=== PATIENT | female | born 1950 | race African-American/Black ===

== ENCOUNTER 2017-08-17 08:27 | Outpatient (CLI) | payer MEDICARE, MEDICAID | END 2017-08-17 08:28 | disposition home or self-care (01) | LOC: BICMAMMO 08:27 | PROVIDERS: ATTEND Family Medicine | DX: Z12.31 Encounter for screening mammogram for malignant neoplasm of breast (principal); R92.1 Mammographic calcification found on diagnostic imaging of breast | CPT/HCPCS: 77063; 77067 ==

== ENCOUNTER 2018-05-22 08:34 | Outpatient (CLI) | payer MEDICARE, OTHER ==
--- NOTE | 2018-05-22 11:57 | HP ---
DATE OF SERVICE: 05/22/2018 HISTORY OF PRESENT ILLNESS: Ms. Tracey Ochoa is a very pleasant 67-year-old referred to the [facility] for evaluation of right lower extremity lymphedema. The patient states that she developed swe lling of her right lower extremity after pulling a muscle 1 month ago. The patient was referred to located within [facility] by Dr. Rachelle Cristina. The patient has no other complaints today. She denies any fever o r chills. PAST MEDICAL HISTORY: 1. Hypertension. 2. Rheumatoid arthritis. 3. Chronic kidney disease stage 2. 4. History of mediastinal mass. PAST SURGICAL HISTORY: Resection of thymic gland 06/27/2012. MEDICATIONS: 1. Metoprolol. 2. Lisinopril. 3. Lasix. 4. Crestor. 5. Vitamin C. 6. Vitamin E. ALLERGIES: No known diagnosed allergies. SOCIAL HISTORY: Negative for current tobacco or ETOH use. FAMILY HISTORY: Significant for diabetes mellitus. The patient states that her mother was diagnosed with diabetes mellitus. Family history is also significant for coronary artery disease. The patien t states that her father was diagnosed with coronary artery disease. PHYSICAL EXAMINATION: VITAL SIGNS: Temperature 97.8, pulse 78, respirations 18, blood pressure 200/89. GENERAL: A 67-year-old female sitting on stretcher in examination room in no acute distress. HEENT: Normocephalic, atraumatic. NECK: No nuchal rigidity. CHEST: Clear to auscultation. CARDIAC: Regular rate and rhythm. ABDOMEN: Soft. EXTREMITIES: Lymphedema of both lower extremities is present on exam today. The lymphedema of the r ight lower extremity, however, is greater than that of the left lower extremity. No open wounds are present over the right or left lower extremity. No cellulitis of the right or left lower extremity i s present. No maceration of the skin of the right or left lower extremity is present. Circumference s of the right lower extremity at the ankle, calf, knee and thigh are 34.5 cm, 53.5 cm, 60 cm, and 10 8 cm. Circumferences of the left lower extremity are 37 cm, 54.5 cm, 59 cm, and 105 cm. NEUROLOGIC: Grossly nonfocal. ASSESSMENT AND PLAN: 1. Right and left lower extremity lymphedema as described above. As stated above, the lymphedema of the right lower extremity is greater than that of the left lower extremity. Arrangements will be ma de for the initiation of in-home lymphedema therapy with a pneumatic pump. The patient understands a nd is in agreement with the preceding treatment plan. The patient will return to clinic in 5 weeks a t which time these arrangements will be continued. 2. Hypertension. 3. Rheumatoid arthritis. 4. Chronic kidney disease stage 2. 5. History of mediastinal mass.
== END 2018-05-22 08:35 | disposition home or self-care (01) ==
LOC: WCC 08:34
PROVIDERS: ATTEND Family Medicine
DX: I89.0 Lymphedema, not elsewhere classified (principal); M06.9 Rheumatoid arthritis, unspecified; I12.9 Hypertensive chronic kidney disease with stage 1 through stage 4 chronic kidney disease, or unspecified chronic kidney disease; N18.2 Chronic kidney disease, stage 2 (mild); Z79.899 Other long term (current) drug therapy
CPT/HCPCS: 97139; G0463; 99203

== ENCOUNTER 2018-06-26 09:16 | Outpatient (CLI) | payer MEDICARE, OTHER ==
--- NOTE | 2018-06-26 10:43 | PRG ---
DATE OF SERVICE: 06/26/2018 HISTORY: Ms. Tracey Ochoa is a very pleasant 68-year-old, referred to the [facility]ound Center for evaluation of right lower extremity lymphedema. The patient previously stated that she developed swelling of her right lower extremity after pulling a muscle approximately one month prior to her initial presentation to the [facility]ound Center. The patient was referred to the Wound Center by Dr. Rachelle Cristina. Ms. Ochoa has no complaints today. She denies any fever or chills. PHYSICAL EXAMINATION: VITAL SIGNS: Temperature 97.5, pulse 53, respirations 18, and blood pressure 166/65. EXTREMITIES: Lymphedema of both lower extremities is present on exam today. No open wounds are present over the right or left lower extremity. No cellulitis of the right or left lower extremity is present. No maceration of the skin of the right or left lower extremity is present. Circumferences of the right lower extremity at the ankle, calf, and knee are 35 cm, 54 cm, and 59.5 cm. Circumferences of the left lower extremity at the ankle, calf, and knee are 40 cm, 55 cm, and 60 cm. ASSESSMENT AND PLAN: 1. Right and left lower extremity lymphedema as described above. Arrangements will continue for the initiation of in-home lymphedema therapy with a pneumatic pump. The patient will return to clinic on 07/20/2018, at which time these arrangements will be continued. 2. Hypertension. 3. Rheumatoid arthritis. 4. Chronic kidney disease stage 2. 5. History of mediastinal mass. Job ID: [id number]
== END 2018-06-26 09:17 | disposition home or self-care (01) ==
LOC: WCC 09:16
PROVIDERS: ATTEND Family Medicine
DX: I89.0 Lymphedema, not elsewhere classified (principal); I12.9 Hypertensive chronic kidney disease with stage 1 through stage 4 chronic kidney disease, or unspecified chronic kidney disease; N18.2 Chronic kidney disease, stage 2 (mild); M06.9 Rheumatoid arthritis, unspecified
CPT/HCPCS: 97602

== ENCOUNTER 2018-07-20 08:28 | Outpatient (CLI) | payer MEDICARE, OTHER ==
--- NOTE | 2018-07-20 09:48 | PRG ---
DATE OF SERVICE: 07/20/2018 SUBJECTIVE: Ms. Tracey Ochoa is a very pleasant 68-year-old referred to the [facility] Center for evaluation of right lower extremity lymphedema. Previously, the patient stated that she developed swelling of her right lower extremity after pulling a muscle approximately one month prior to her initial presentation to the [facility] Center. The patient was referred to the Wound Center by Dr. Rachelle Cristina. The patient has no complaints today. She denies any fever or chills. OBJECTIVE: VITAL SIGNS: Temperature 97.6, pulse 55, respirations 18, and blood pressure 168/79. EXTREMITIES: Lymphedema of both lower extremities is present on exam today. No open wounds are present over the right or left lower extremity. No cellulitis of the right or left lower extremity is present. No maceration of the skin of the right or left lower extremity is present. Circumferences of the right lower extremity at the ankle, calf, and knee are 33 cm, 59 cm, and 61 cm. Circumferences of the left lower extremity at the ankle, calf, and knee are 36 cm, 58 cm, and 64 cm. ASSESSMENT AND PLAN: 1. Right and left lower extremity lymphedema as described above. Arrangements will continue for the initiation of in-home lymphedema therapy with a pneumatic pump. 2. Hypertension. 3. Rheumatoid arthritis. 4. Chronic kidney disease stage 2. 5. History of mediastinal mass. Job ID: [id number]
== END 2018-07-20 08:29 | disposition home or self-care (01) ==
LOC: WCC 08:28
PROVIDERS: ATTEND Family Medicine
DX: I89.0 Lymphedema, not elsewhere classified (principal); M06.9 Rheumatoid arthritis, unspecified; I12.9 Hypertensive chronic kidney disease with stage 1 through stage 4 chronic kidney disease, or unspecified chronic kidney disease; N18.2 Chronic kidney disease, stage 2 (mild)
CPT/HCPCS: 97139; G0463; 99212

== ENCOUNTER 2018-11-09 09:08 | Outpatient (CLI) | payer MEDICARE, OTHER ==
--- NOTE | 2018-11-09 14:40 | MMO ---
Bilateral MAMMO Bilat Screen [facility]. CLINICAL HISTORY: Patient is 68 years old and is seen for screening. The patient has no family history of breast cancer. The patient has no personal history of cancer. VIEWS: The views performed were: bilateral craniocaudal with tomosynthesis; bilateral mediolateral oblique with tomosynthesis; and right mediolateral oblique. FILMS COMPARED: The present examination has been compared to prior imaging studies performed at on 12/02/2008, 02/26/2010, 04/06/2011, 04/21/2012, 07/16/2015, 07/20/2016 and 08/17/2017. MAMMOGRAM FINDINGS: There are scattered fibroglandular densities. Benign calcifications are noted bilaterally. There are no suspicious masses, suspicious calcifications, or new areas of architectural distortion. IMPRESSION: THERE IS NO MAMMOGRAPHIC EVIDENCE OF MALIGNANCY. A ROUTINE FOLLOW-UP MAMMOGRAM IN 1 YEAR IS RECOMMENDED. THE RESULTS OF THIS EXAM WERE SENT TO THE PATIENT. ACR BI-RADS Category 2 - Benign finding MAMMOGRAPHY NOTE: 1. A negative mammogram report should not delay a biopsy if a dominant of clinically suspicious mass is present. 2. Approximately 10% to 15% of breast cancers are not detected by mammography. 3. Adenosis and dense breasts may obscure an underlying neoplasm.
== END 2018-11-09 09:09 | disposition home or self-care (01) ==
LOC: BICMAMMO 09:08
PROVIDERS: ATTEND Family Medicine
DX: Z12.31 Encounter for screening mammogram for malignant neoplasm of breast (principal)
CPT/HCPCS: 77063; 77067

== ENCOUNTER 2019-05-24 09:49 | Outpatient (CLI) | payer MEDICARE, OTHER ==
--- NOTE | 2019-05-24 11:29 | PRG ---
DATE OF SERVICE: 05/24/2019 HISTORY: Ms. Tracey Ochoa is a very pleasant 68-year-old referred to the [facility] Center for evaluation of right lower extremity lymphedema. Previously, the patient stated that she developed swelling of her right lower extremity after pulling a muscle approximately 1 month prior to her initial presentation to the Wound Center. The patient was referred to the Wound Center by Dr. Rachelle Cristina. The patient has received a pneumatic pump, which she is using as prescribed. Ms. Ochoa today complains of swelling of her right posterior thigh. She denies any fever or chills. PHYSICAL EXAMINATION: VITAL SIGNS: Temperature 97.6, pulse 64, respirations 19, and blood pressure 170/73. EXTREMITIES: Lymphedema of both lower extremities has significantly decreased since the patient's last visit. Lymphedema of the right posterior thigh is noted. No erythema or tenderness of the right posterior thigh is present on exam today. ASSESSMENT AND PLAN: 1. Right and left lower extremity lymphedema. The patient has been reassured that no inflammatory or infectious process is associated with the lymphedema of her right posterior thigh. The patient has been told that no erythema or tenderness to palpation of the right posterior thigh is noted on exam today. The patient is to continue to utilize her pneumatic pump for in-home lymphedema therapy as previously prescribed. Ms. Ochoa will be discharged from clinic today with followup on a p.r.n. basis. The patient understands and is in agreement with the preceding treatment plan. 2. Hypertension. 3. Rheumatoid arthritis. 4. Chronic kidney disease, stage 2. 5. History of mediastinal mass. Job ID: [id number]
== END 2019-05-24 09:50 | disposition home or self-care (01) ==
LOC: WCC 09:49
PROVIDERS: ATTEND Family Medicine
DX: I89.0 Lymphedema, not elsewhere classified (principal); I12.9 Hypertensive chronic kidney disease with stage 1 through stage 4 chronic kidney disease, or unspecified chronic kidney disease; N18.2 Chronic kidney disease, stage 2 (mild); M06.9 Rheumatoid arthritis, unspecified; Z87.09 Personal history of other diseases of the respiratory system
CPT/HCPCS: 99212; G0463

== ENCOUNTER 2020-04-17 11:58 | Outpatient (CLI) | payer MEDICARE, OTHER ==
--- NOTE | 2020-04-17 13:16 | MMO ---
Bilateral MAMMO Bilat Screen [facility]. CLINICAL HISTORY: Patient is 69 years old and is seen for screening. The patient has no family history of breast cancer. The patient has no personal history of cancer. VIEWS: The views performed were: bilateral mediolateral; bilateral craniocaudal with tomosynthesis; bilateral mediolateral oblique with tomosynthesis; and left craniocaudal. FILMS COMPARED: The present examination has been compared to prior imaging studies performed at [facility] on 07/16/2015, 07/20/2016, 08/17/2017 and 11/09/2018. This study has been interpreted with the assistance of computer-aided detection. MAMMOGRAM FINDINGS: There are scattered fibroglandular densities. There are no suspicious masses, suspicious calcifications, or new areas of architectural distortion. IMPRESSION: THERE IS NO MAMMOGRAPHIC EVIDENCE OF MALIGNANCY. A ROUTINE FOLLOW-UP MAMMOGRAM IN 1 YEAR IS RECOMMENDED. THE RESULTS OF THIS EXAM WERE SENT TO THE PATIENT. ACR BI-RADS Category 1 - Negative MAMMOGRAPHY NOTE: 1. A negative mammogram report should not delay a biopsy if a dominant of clinically suspicious mass is present. 2. Approximately 10% to 15% of breast cancers are not detected by mammography. 3. Adenosis and dense breasts may obscure an underlying neoplasm. Reported by: RIGOBERTO MARSH MD Electonically Signed: [id number]
== END 2020-04-17 11:59 | disposition home or self-care (01) ==
LOC: BICMAMMO 11:58
PROVIDERS: ATTEND Family Medicine
DX: Z12.31 Encounter for screening mammogram for malignant neoplasm of breast (principal)
CPT/HCPCS: 77063; 77067

== ENCOUNTER 2020-07-22 21:59 | Emergency (ER) | payer MEDICARE, OTHER ==
[2020-07-22] MEDS ORDERED: Ondansetron ODT 4 MG TAB ONE (23:01)
[2020-07-22] MEDS ORDERED: Acetaminophen 500 MG TAB ONE (23:01)
[2020-07-22] MEDS ORDERED: Ibuprofen 200 MG TAB ONE (23:01)
[2020-07-22 23:26] LABS: #Lymphocytes 0.6 thou/uL (1.20-3.40); #Monocytes 0.8 thou/uL (0.11-0.59); #Neutrophils 7.5 thou/uL (1.40-6.50); %Basophils 0.2 % (0.0-1.0); %Eosinophils 0.3 % (0.0-10.0); %Lymphocytes 6.2 % (21.0-51.0); %Monocytes 8.9 % (0.0-10.0); %Neutrophils 84.4 % (42.0-75.0); Hemoglobin 11.2 g/dL (12.0-16.0); Mean Corpuscular Hemoglobin 29.8 pg (27.0-31.0); Mean Corpuscular Volume 90.2 fL (78.0-98.0); Mean Platelet Volume 9.8 fL (7.4-10.4); Platelet Count 164 thou/uL (130-400); RBC Distribution Width 12.8 % (11.5-14.5); Red Blood Cell (RBC) Count 3.76 mill/uL (4.20-5.40); White Blood Cell (WBC) Count 8.9 thou/uL (4.8-10.8)
[2020-07-22 23:47] LABS: ALT (SGPT) 9 U/L (8-55); AST (SGOT) 16 U/L (5-34); Albumin 3.5 g/dL (3.4-4.8); Alkaline Phosphatase 87 U/L (40-110); Anion Gap 15 mmol/L (10-20); BUN (Urea Nitrogen) 11 mg/dL (9.8-20.1); Bilirubin, Total 1.6 mg/dL (0.2-1.2); Calc. Creatinine Clearance 0 mL/min (70-130); Calcium 8.6 mg/dL (7.8-10.44); Carbon Dioxide 24 mmol/L (23-31); Chloride 100 mmol/L (98-107); Globulin 3.6 g/dL (2.4-3.5); Glucose 140 mg/dL (83-110); Potassium 3.4 mmol/L (3.5-5.1); Protein, Total 7.1 g/dL (6.0-8.3); Sodium 136 mmol/L (136-145)
[2020-07-23 00:23] LABS: Bacteria/HPF None Seen HPF (None Seen); Bilirubin Negative (Negative); Blood, Urine 1+ (Negative); Clarity Clear (Clear); Glucose, Urine (Dipstick) Normal (Negative); Ketone, Urine Negative (Negative); Leukocyte Negative Leu/uL (Negative); Nitrite Negative (Negative); Protein, Urine (Dipstick) 30 mg/dL (Neg-Trace); RBC/HPF None Seen HPF (0-3); Specific Gravity, Urine 1.008 (1.002-1.036); Squamous Epithelial None Seen HPF (0-3); WBC/HPF 0-3 HPF (0-3); pH, Urine 6.5 (5.0-9.0)
--- NOTE | 2020-07-23 08:33 | RAD ---
PORTABLE CHEST: DATE: 07/22/2020. PROVIDED CLINICAL HISTORY: Cough and fever. FINDINGS: Comparison 06/22/2014. Evaluation is limited by patient body habitus. The cardiac silhouette appears enlarged. Median sternotomy changes are seen. There are bilateral parahilar interstitial opacities that appear similar to the prior. There is no focal airspace disease, pleural fluid, or pneumothora x apparent. IMPRESSION: No definite evidence for an acute cardiopulmonary process. POS: KALEE
== END 2020-07-23 00:19 | disposition home or self-care (01) ==
LOC: ERS 21:59
DX: R11.2 Nausea with vomiting, unspecified (principal); Z20.828 Contact with and (suspected) exposure to other viral communicable diseases; I10 Essential (primary) hypertension; E78.5 Hyperlipidemia, unspecified; Z79.899 Other long term (current) drug therapy
CPT/HCPCS: 36415; 71045; 80053; 81003; 81015; 85025; Q0162

== ENCOUNTER 2020-07-26 17:13 | Inpatient (IN) | payer MEDICARE, MEDICAID ==
[~2020-07-26 17:13] MED LIST: Iopamidol-370 76% 500 ML 1 ML ONE
--- NOTE | 2020-07-26 18:07 | RAD ---
EXAM: CHEST ONE VIEW HISTORY: Chest pain for one week. COMPARISON: 07/22/2020 FINDINGS: Median sternotomy wires are again present. Cardiac silhouette is magnified by projection but does peyton ear enlarged. Multifocal parenchymal airspace opacities are seen throughout the lungs bilaterally with coalescence of airspace opacities at each lung base and in the left upper lung zone. Findings ar e worrisome for multifocal pneumonia. Covid pneumonia in the correct clinical scenario is a possibility. No other interval change. IMPRESSION: Multifocal pneumonia. Covid pneumonia in the correct clinical scenario is a possibility.
[2020-07-26] MEDS ORDERED: cefTRIAXone\\ROCEPHIN 2 GM VIAL ONE (18:09)
[2020-07-26] MEDS ORDERED: Azithromycin 500 MG VIAL ONE (18:09)
[2020-07-26] MEDS ORDERED: Albuterol Sulfate 2.5 mg/0.5 ml Neb ONE (18:31)
[2020-07-26] MEDS ORDERED: Albuterol Sulfate 2.5 mg/3 ml Neb ONE (18:31)
[2020-07-26 18:32] LABS: #Eosinphils 0.1 thou/uL (0.0-0.7); #Lymphocytes 0.6 thou/uL (1.20-3.40); #Monocytes 0.8 thou/uL (0.11-0.59); #Neutrophils 10.5 thou/uL (1.40-6.50); %Basophils 0.2 % (0.0-1.0); %Eosinophils 0.6 % (0.0-10.0); %Neutrophils 87.2 % (42.0-75.0); Hemoglobin 12.5 g/dL (12.0-16.0); Mean Corpuscular HGB CONC 32.8 g/dL (32.0-36.0); Mean Corpuscular Hemoglobin 29.7 pg (27.0-31.0); Mean Corpuscular Volume 90.4 fL (78.0-98.0); Mean Platelet Volume 9.9 fL (7.4-10.4); Platelet Count 248 thou/uL (130-400); RBC Distribution Width 12.9 % (11.5-14.5); Red Blood Cell (RBC) Count 4.21 mill/uL (4.20-5.40)
[2020-07-26 18:50] LABS: SARS-CoV-2 NAA Rapid Test DETECTED (NotDetected)
[2020-07-26 18:54] LABS: ALT (SGPT) 25 U/L (8-55); AST (SGOT) 44 U/L (5-34); Albumin 3.5 g/dL (3.4-4.8); Alkaline Phosphatase 131 U/L (40-110); Anion Gap 18 mmol/L (10-20); BUN (Urea Nitrogen) 13 mg/dL (9.8-20.1); Bilirubin, Total 1.5 mg/dL (0.2-1.2); Calc. Creatinine Clearance 0 mL/min (70-130); Calcium 8.5 mg/dL (7.8-10.44); Carbon Dioxide 27 mmol/L (23-31); Chloride 98 mmol/L (98-107); Globulin 3.8 g/dL (2.4-3.5); Glucose 144 mg/dL (83-110); Lipase 14 U/L (8-78); Magnesium 1.9 mg/dL (1.6-2.6); Potassium 3.4 mmol/L (3.5-5.1); Protein, Total 7.3 g/dL (6.0-8.3); Sodium 140 mmol/L (136-145)
[2020-07-26] MEDS ORDERED: Dexamethasone 10 MG/ML VIAL ONE (19:00)
[2020-07-26 19:19] LABS: CKMB 1.5 ng/mL (0-6.6)
--- NOTE | 2020-07-26 19:49 | PDOC.FPRHP ---
- History of Present Illness Chief Complaint: Chest pain History of Present Illness: Patient is a 70 yo female with PMH of DM, HTN, HF, and morbid obesity who presented for chest pain and SOB. Patient describes chest pain in association with cough. Denies any chest pain or chest pressure outside of coughing. She has been experiencing SOB since yesterday, but started feeling symptoms of malaise and fatigue 5 days ago. Denies fever/chills or GI symtoms. COVID + in ED. ED Course: Lovenox 150 mg, transdermal nitro-bid, morphine 4 mg, decadron 10 mg, Rocephin 2 g, Azithromycin 500 mg, normal saline 500 ml, aspirin 324 mg - Allergies/Adverse Reactions Allergies Allergy/AdvReac Type Severity Reaction Status Date / Time No Known Drug Allergies Allergy Verified 07/27/20 05:33 - History PMHx: HTN, HF, DM (diet controlled), morbid obesity PSHx: hysterectomy, lumpectomy FHx: no significant family history Social: no t/a/d - Review of Systems General: reports: fatigue. denies: fever/chills Eyes: denies: vision changes ENT: denies: nasal congestion Respiratory: reports: cough, shortness of breath Cardiovascular: reports: chest pain, edema Gastrointestinal: denies: nausea, vomiting, diarrhea, abdominal pain Genitourinary: denies: dysuria, polyuria Skin: denies: jaundice Musculoskeletal: reports: pain, swelling Neurological: reports: weakness Psychological: denies: anxiety, depression - Vital signs BP: 158/113 HR: 92 RR: 25 Tmax: 98.6 Pox: 100% on 2L Wt: 193 kg - Physical Exam Constitutional: NAD, awake, alert and oriented HEENT: normocephalic and atraumatic, EOMI -HEENT: dry mucous membranes Neck: supple, FROM Heart: RRR, normal S1/S2 -Lungs: diffuse bilateral crackles Abdomen: soft, non-tender, bowel sounds present Musculoskeletal: normal structure, normal tone Neurological: no focal deficit, normal sensation Skin: no rash/lesions, no jaundice Heme/Lymphatic: no unusual bruising or bleeding, no purpura, no petechia Psychiatric: normal mood and affect, good judgment and insight FMR H&P: Results - Labs Result Diagrams: 07/27/20 06:24 07/27/20 06:24 Lab results: WBC 12.0 thou/uL (4.8-10.8) H 07/26/20 18:19 Hgb 12.5 g/dL (12.0-16.0) 07/26/20 18:19 Hct 38.1 % (36.0-47.0) 07/26/20 18:19 MCV 90.4 fL (78.0-98.0) 07/26/20 18:19 Plt Count 248 thou/uL (130-400) 07/26/20 18:19 Neutrophils % 87.2 % (42.0-75.0) H 07/26/20 18:19 Sodium 140 mmol/L (136-145) 07/26/20 18:20 Potassium 3.4 mmol/L (3.5-5.1) L 07/26/20 18:20 Chloride 98 mmol/L (98-107) 07/26/20 18:20 Carbon Dioxide 27 mmol/L (23-31) 07/26/20 18:20 BUN 13 mg/dL (9.8-20.1) 07/26/20 18:20 Creatinine 1.61 mg/dL (0.6-1.1) H 07/26/20 18:20 Glucose 144 mg/dL (83-110) H 07/26/20 18:20 Lactic Acid 1.9 mmol/L (0.5-2.2) 07/26/20 18:19 Calcium 8.5 mg/dL (7.8-10.44) 07/26/20 18:20 Total Bilirubin 1.5 mg/dL (0.2-1.2) H 07/26/20 18:20 AST 44 U/L (5-34) H 07/26/20 18:20 ALT 25 U/L (8-55) 07/26/20 18:20 Alkaline Phosphatase 131 U/L (40-110) H 07/26/20 18:20 CK-MB (CK-2) 1.5 ng/mL (0-6.6) 07/26/20 18:20 B-Natriuretic Peptide 144.2 pg/mL (0-100) H 07/26/20 18:19 Serum Total Protein 7.3 g/dL (6.0-8.3) 01/02/21 18:20 Albumin 3.5 g/dL (3.4-4.8) 07/26/20 18:20 Lipase 14 U/L (8-78) 07/26/20 18:20 - EKG Interpretation EKG: T wave inversions in AVL - Radiology Interpretation Chest x-ray Status: image reviewed by me, report reviewed by me Additional comment: multifocal PNA, consider COVID PNA Other Status: report reviewed by me Additional comment: CTA: covid PNA, small bilateral pleural effusions, suboptimal evaluation of segmental and subsegmental pulmonary arteries but no filling defects noted within central pulmonary arteries, probably reactive LAD, peripherally calcified splenic artery aneurysm that is stable in size and appearance compared to 2014 study FMR H&P: A/P - Problem List (1) Pneumonia due to COVID-19 virus Current Visit: Yes Status: Acute Code(s): U07.1 - COVID-19; J12.82 - (2) Atypical chest pain Current Visit: Yes Status: Acute Code(s): R07.89 - OTHER CHEST PAIN (3) HTN (hypertension) Current Visit: No Status: Chronic Code(s): I10 - ESSENTIAL (PRIMARY) HYPERTENSION (4) CHF (congestive heart failure) Current Visit: No Status: Chronic Code(s): I50.9 - HEART FAILURE, UNSPECIFIED (5) Diabetes mellitus Current Visit: No Status: Chronic Code(s): E11.9 - TYPE 2 DIABETES MELLITUS WITHOUT COMPLICATIONS (6) DEANDRE (acute kidney injury) Current Visit: Yes Status: Acute Code(s): N17.9 - ACUTE KIDNEY FAILURE, UNSPECIFIED - Plan Acute hypoxic respiratory failure 2/2 to COVID PNA - s/p decadron, albuterol, rocephin and azythro in ED - currently on 2L NC, does not typically require oxygen; will continue to monitor O2 status and wean as tolerated - Chest Xray: multifocal PNA - CTA: covid PNA, small bilateral pleural effusions, suboptimal evaluation of segmental and subsegmental pulmonary arteries but no filling defects noted within central pulmonary arteries - D-dimer: 1.20 - Trop: 0.066, will continue to trend and monitor on tele - WBC: 12.0 - will obtain ferritin, CRP, LDH - Lovenox for DVT ppx (40 mg daily), s/p 150 mg in ED - will continue Decadron (6 mg PO daily) - remdesevir and convalescent plasma ordered - will obtain procal to assess need for antibiotics Atypical chest pain with indeterminate troponins - pain only with coughing - s/p lovenox, aspirin, and nitro - EKG: T wave inversions in aVL, no ST changes - Trop: 0.066, will trend and monitor on tele - will obtain repeat EKG with 2nd trop - indeterminate trop likely 2/2 to COVID PNA CHF - on lasix at home, will hold pending improvement in Cr. - BNP: 144 but appears dry on exam with Cr: 1.61 (baseline around 1.15) - s/p 500 ml of NS in ED, will gently resuscitate with LR at 200 mls/hr for 1 bag DEANDRE - Cr: 1.61 (baseline ~ 1.15) - see above regarding gentle fluid resuscitation HTN - continue home medication DM - diet controlled - mild SSI and hypoglycemia protocol ordered PCP: Jonnie Code: FULL IVF: LR @ 200 mls/hr for 1 bag Diet: HH and CC DVT ppx: 40 mg Lovenox daily Dispo: will admit to tele for further monitoring and medical management; likely LOS > 48 hrs. FMR H&P: Upper Level - Plan Date/Time: 07/26/201944 IPasquale DO, have evaluated this patient and agree with findings/plan as outlined by physician/internist resident. Pertinent changes/additions are listed here. 70 yo F w pmhx sig for morbid obesity, htn, and chf She reports malaise beginning 4 days ago, SOB and non productive cough began yesterday. she reports chest pain with cough. She denies any fever, n/v/d, decrease PO, exertional chest pain, chest pressure/radiation. no known sick contacts. labs sig for mild wbc elevation, cr elevation, bnp/ddimer elevation, and mild elevation of ast/Tbili. cxr sig for b/l infiltrates. ekg for t wave inversion in AVL, no ST elevation. CTA obtained sig for covid pna and poor eval of subsegmental vasculature, no embolus noted. In the ED she was given abx, th lovenox, nitro/morphine, asa, decadron. on my exam she is comfortably on 2Lnc, no jvd noted, b/l crackles, no ronchi/wheeze, abd nttp, LE with mild edema, pulses present throughout. Acute hypoxic respiratory failure 2/2 covid pna, will treat with decadron, conv. plasma, remdesivir, obtain procal, plan to dc abx. ddimer elevation likely 2/2 to covid. indeterminate trop in setting of atypical chest pain and ekg changes in single lead- will trend trop, dc th lovenox, monitor on tele. hx of chf w/ deandre- dry appearing on exam, gentle ivf resusc. lft/hyperbili, possibly 2/2 covid pna, consider vascular congestion, will monitor. please see physician/internist note above for mgmt of chronic conditions. Addendum - Attending - Attending Attestation Date/Time: 07/27/20 0730 I personally evaluated the patient and discussed the management with Dr. Huerta/Dominic. I agree with the History, Examination, Assessment and Plan documented above with any addition or exceptions noted below. Patient here for acute hypoxic resp failure 2/2 COVID19. She has multiple colten rbid conditions, including morbid obesity, that place her at risk for poor outcomes from this illness. Plasma, Remdesevir, Steroids, O2 support as needed.
[2020-07-26] MEDS ORDERED: Dextrose 5% in Water 1,000 ML IV PRN (20:15)
[2020-07-26] MEDS ORDERED: Dextrose 50% Abboject 50 ML SYRINGE SLOW IVP PRN (20:15)
[2020-07-26] MEDS ORDERED: Insulin Regular 300 UNITS/3 ML VIAL SC PRN ×2 (20:17)
[2020-07-26] MEDS ORDERED: Pharmacy to Dose REMDESIVIR IVPB PRN (20:24)
--- NOTE | 2020-07-26 20:30 | CT ---
CT ANGIOGRAM THORAX WITH IV CONTRAST AND 3-D RECONSTRUCTIONS CLINICAL INDICATION: Chest pain and nausea. COMPARISON: 06/22/2014 FINDINGS: Pulmonary arteries: No obvious filling defect is seen within the central pulmonary arteries to sugges t a pulmonary embolus, but there is suboptimal opacification of the segmental and subsegmental pulmonary arteries limiting evaluation for pulmonary embolus at these levels. Aorta: Minimal vascular calcifications are seen in thoracic aorta. The thoracic aorta is normal in ca liber. Lungs: There are multifocal and confluent areas of groundglass opacities seen diffusely throughout th e lungs bilaterally in a pattern most suggestive of viral pneumonitis such as Covid 19. There are small bilateral pleural effusions are present. Mediastinum: Mildly prominent pretracheal lymph node is seen measuring 1.2 cm in short axis dimension with a few additional mildly increased number of lymph nodes seen in the mediastinum likely reactive in origin. Postoperative changes related to median sternotomy are seen. Thyroid gland: Not imaged on this exam. Osseous structures: Degenerative changes are seen throughout the thoracic spine. Calcification of the anterior longitudinal ligament is seen involving the mid and lower thoracic spine. Chest wall: No abnormality visualized. Upper abdomen: An approximately 2 cm peripherally calcified splenic artery aneurysm is seen at the sp lenic hilum. This is overall stable in size and appearance compared to study in 2014. Very small hiatal hernia is present. IMPRESSION: 1. Covid pneumonia. 2. Small bilateral pleural effusions. 3. Suboptimal evaluation of the segmental and subsegmental pulmonary arteries for pulmonary emboli du e to suboptimal timing of the contrast bolus. No filling defect is seen within the central pulmonary arteries. 4. Probable mild reactive lymphadenopathy in the mediastinum. 5. Peripherally calcified splenic artery aneurysm measuring 2 cm which is stable in size and appearan ce compared to study in 2013.
[2020-07-26] MEDS ORDERED: Lactated Ringer's 1,000 ML IV SCH (21:00)
[2020-07-26] MEDS ORDERED: Enoxaparin Sodium 40 MG/0.4 ML SYRINGE SC SCH (21:00)
[2020-07-26 21:05] LABS: Bilirubin Negative (Negative); Blood, Urine 2+ (Negative); Clarity Turbid (Clear); Glucose, Urine (Dipstick) Normal (Negative); Ketone, Urine Negative (Negative); Leukocyte Negative Leu/uL (Negative); Nitrite Negative (Negative); Protein, Urine (Dipstick) 200 mg/dL (Neg-Trace); Specific Gravity, Urine 1.013 (1.002-1.036); Urobilinogen 6 mg/dL (Less than 2); pH, Urine 6.5 (5.0-9.0)
[2020-07-26 21:06] LABS: Bacteria/HPF 2+ HPF (None Seen)
[2020-07-26] MEDS ORDERED: Nitroglycerin 2% Ointment 1 INCH/1 GM Packet ONE (21:09)
[2020-07-26 21:24] LABS: Troponin I 0.061 ng/mL (< 0.028)
[2020-07-26] MEDS ORDERED: Enoxaparin Sodium 40 MG/0.4 ML SYRINGE ONE (21:31)
[2020-07-26 23:53] LABS: Troponin I 0.063 ng/mL (< 0.028)
[2020-07-27] MEDS ORDERED: REMDESIVIR (EUA) 200 MG in Sodium Chloride 0.9% 250 ML 210 ML IV SCH (02:00)
--- NOTE | 2020-07-27 06:26 | PDOC.FM ---
- Subjective Subjective: Patient feeling well this AM, denies chest pain. Endorses improved SOB - Objective MAR Reviewed: Yes Vital Signs & Weight: Vital Signs (12 hours) Temp Pulse Pulse Resp BP BP Pulse Ox 07/27/20 04:04 97.6 F 80 32 H 159/73 H 92 L 07/26/20 23:43 97.6 F 78 26 H 171/76 H 94 L 07/26/20 23:15 98.4 F 81 24 H 157/85 H 94 L 07/26/20 22:58 98.5 F 82 28 H 155/101 H 94 L Weight Weight 193 kg I&O: 07/25/20 07/26/20 07/27/20 06:59 06:59 06:59 Intake Total 0 Balance 0 Result Diagrams: 07/27/20 06:24 07/27/20 06:24 Phys Exam - Physical Examination Constitutional: NAD Morbidly obese Respiratory: no wheezing, no rales, no rhonchi, clear to auscultation bilateral poor air movement Cardiovascular: RRR, no significant murmur, no rub Gastrointestinal: soft, non-tender, no distention Dx/Plan - Plan Plan: Acute hypoxic respiratory failure 2/2 to COVID PNA - s/p decadron, albuterol, rocephin and azythro in ED-Procal 0.88 on admission - Chest Xray and CTA consistent with COVID PNA - D-dimer: 1.20 - Lovenox for DVT ppx (40 mg daily) - will continue Decadron (6 mg PO daily- started 07/26/20) - remdesevir and convalescent plasma - Continue Rocephin and azithromycin with elevated procal - O2 requirement: 7L NC - Try to wean O2 requirement, elevated HOB given body habitus Hypokalemia - Repleted 40 mEq Atypical chest pain with indeterminate troponins - pain is improved this am, received lovenox, aspirin, and nitro in ED - EKG: T wave inversions in aVL, no ST changes - Troponin was trended-stable 0.066 -> 0.061 -> 0.063 - indeterminate trop likely 2/2 to COVID PNA CHF - on lasix at home, will hold pending improvement in Cr. - BNP: 144 but appears dry on exam with Cr: 1.61 (baseline around 1.15) - monitor fluid status DEANDRE - Cr: 1.61 (baseline ~ 1.15) - Consider IVF, restart lasix when appropriate HTN - continue home medication DM - diet controlled - mild SSI and hypoglycemia protocol ordered PCP: Jonnie Code: FULL IVF: SL Diet: HH and CC DVT ppx: 40 mg Lovenox daily Dispo: will admit to tele for further monitoring and medical management; likely LOS > 48 hrs. Addendum - Attending - Attending Attestation Date/Time: 07/27/20 2686 I personally evaluated the patient and discussed the management with Dr. Peñaloza. I agree with the History, Examination, Assessment and Plan documented above with any addition or exceptions noted below. Patient overall stable. Continue usual care for COVID pneumonia with hypoxia. Patient high risk for clinical deterioration given her obesity and comorbid conditions. Continue steroids, Remdesevir, plasma.
[2020-07-27 06:49] LABS: Hemoglobin 11.4 g/dL (12.0-16.0); Mean Corpuscular HGB CONC 30.3 g/dL (32.0-36.0); Mean Corpuscular Hemoglobin 27.4 pg (27.0-31.0); Mean Corpuscular Volume 90.4 fL (78.0-98.0); Mean Platelet Volume 9.7 fL (7.4-10.4); Platelet Count 262 thou/uL (130-400); RBC Distribution Width 12.9 % (11.5-14.5); Red Blood Cell (RBC) Count 4.15 mill/uL (4.20-5.40)
[2020-07-27 07:04] LABS: Anion Gap 16 mmol/L (10-20); BUN (Urea Nitrogen) 13 mg/dL (9.8-20.1); Calc. Creatinine Clearance 100 mL/min (70-130); Calcium 8.9 mg/dL (7.8-10.44); Carbon Dioxide 28 mmol/L (23-31); Chloride 100 mmol/L (98-107); Glucose 148 mg/dL (83-110); Potassium 3.3 mmol/L (3.5-5.1); Sodium 141 mmol/L (136-145)
[2020-07-27] MEDS ORDERED: Potassium Chloride 20 MEQ TAB PO SCH (08:00)
[2020-07-27] MEDS ORDERED: Lactated Ringer's 500 ML IV SCH (08:45)
[2020-07-27 09:30] LABS: Band 5 % (5-11); Eosinophils 1 % (0-10); Lymphocytes 4 % (21-51); MDiff Complete? YES; Monocytes 3 % (0-10); Neutrophil 87 % (42-75); Platelet Morphology Comment Appears Adequate; RBC Morphology Normal
[2020-07-27] MEDS ORDERED: Metoprolol Tartrate 50 MG TAB ONE (09:33)
[2020-07-27] MEDS ORDERED: Enoxaparin Sodium 40 MG/0.4 ML SYRINGE ONE (09:33)
[2020-07-27] MEDS ORDERED: Aspirin Chewable 81 MG TAB ONE (09:33)
[2020-07-27] MEDS ORDERED: Potassium Chloride 20 MEQ TAB ONE (09:33)
[2020-07-27] MEDS ORDERED: Amlodipine 5 MG TAB ONE (09:33)
[2020-07-27] MEDS: Amlodipine 10 MG TAB PO SCH (09:41)
[2020-07-27] MEDS: Metoprolol Tartrate 100 MG TAB PO SCH ×2 (09:42→21:26)
[2020-07-27] MEDS: Enoxaparin Sodium 40 MG/0.4 ML SYRINGE SC SCH (09:42)
[2020-07-27] MEDS: Aspirin 81 mg Enteric Coated Tablet PO SCH (09:42)
[2020-07-27] MEDS: Dexamethasone 4 MG TAB PO SCH (13:06)
[2020-07-27] MEDS: Ascorbic Acid 500 mg Chewable Tablet PO SCH (13:06)
[2020-07-27] MEDS: Lisinopril 20 MG TAB PO SCH (15:07)
[2020-07-27] MEDS ORDERED: cefTRIAXone\\ROCEPHIN 1 GM in Sodium Chloride 0.9% 100 ML IVPB SCH (18:00)
[2020-07-27] MEDS ORDERED: cefTRIAXone\\ROCEPHIN 1 GM VIAL ONE (18:03)
[2020-07-27] MEDS ORDERED: Azithromycin 250 MG TAB PO SCH (20:00)
[2020-07-27] MEDS ORDERED: Azithromycin 250 MG TAB ONE (21:12)
[2020-07-27] MEDS: Rosuvastatin 20 MG TAB PO SCH (21:26)
[2020-07-27] MEDS: Ezetimibe 10 MG TAB PO SCH (21:26)
[2020-07-27 23:07] LABS: Actual Bicarbonate (HCO3a) 26.7 mEq/L (22-28); Analyzer IN Cardio ER; Base Excess (BEa) 2.4 mEq/L (-2.0 to +3.0); CO2 Tension 40.1 mmHg (35.0-45.0); Calcium, Ionized (arterial) 1.18 mmol/L (1.12-1.30); Carboxyhemoglobin (COHb) 0.2 gm% (0.0-3.0); Hemoglobin (Hb) 12.7 g/dL (12.0-16.0); O2 Tension (PaO2), arterial 77.9 mmHg (> 70.0); Potassium - ABG Lab 3.56 mmol/L (3.70-5.30); pH, Arterial 7.44 (7.35-7.45)
[2020-07-27 23:33] LABS: ALV-art Gradient 584.975 mmHg (0-20); Puncture Site RRA
[2020-07-27] MEDS ORDERED: REMDESIVIR (EUA) 100 MG in Sodium Chloride 0.9% 250 ML 230 ML IV SCH (23:59)
[2020-07-28] MEDS: REMDESIVIR (EUA) 100 MG in Sodium Chloride 0.9% 250 ML 230 ML IV SCH ×2 (04:02→05:14)
--- NOTE | 2020-07-28 05:57 | PDOC.BPN ---
- Brief Progress Note Paged by the nurse around 0430 as patient was wanting to leave [place]. Per patient, she has a family emergency that she must take care of. She reports that her children, including a 17 yo and a 9 yo, are missing. She reports that the police were called but said they were unable to do anything. She reports that her ex is going to pick her up. The patient is currently on a nonrebreather and often desaturates with minimal movement. I discussed the risks of leaving the hospital, including possible . Both the nurse, housekeeping manager, and myself tried to reason with the patient and tried to come up with alternative plans including contacting the police ourselves and other family members to handle the situation. The patient expressed understanding of the risks and insisted that she must leave.
--- NOTE | 2020-07-28 06:14 | PDOC.FM ---
- Subjective Subjective: Patient reporting Dyspnea is improving, Denies chest pain, denies abdominal pain. On 15L nonrebreather. Patient still wants to leave hospital due to 17 and 9 year old children missing. Reiterated message of Dr. Huerta, RN, and clerical warehouseman that it is highly dangerous to leave given current O2 status. Patient understood and wanted to leave. Otherwise was A&OX3. Called daughter Shireen [phone]) who said there was not a current situation involving children that she knows of. She said she would call the patient to talk with her and call back with any other information. - Objective MAR Reviewed: Yes Vital Signs & Weight: Weight Weight 193 kg I&O: 07/26/20 07/27/20 07/28/20 06:59 06:59 06:59 Intake Total 0 Balance 0 Result Diagrams: 07/28/20 05:13 07/28/20 05:13 Phys Exam - Physical Examination Constitutional: NAD Respiratory: no rales, no rhonchi Diffuse expiratory wheezes Cardiovascular: RRR, no significant murmur, no rub Gastrointestinal: soft, non-tender, no distention, positive bowel sounds Chronic edema with chronic skin changes BLE Psychiatric: normal affect, A&O x 3 Dx/Plan - Plan Plan: Acute hypoxic respiratory failure 2/2 to COVID PNA - s/p decadron, albuterol, rocephin and azythro in ED-Procal 0.88 on admission - Chest Xray and CTA consistent with COVID PNA - D-dimer: 1.20 - Lovenox for DVT ppx (40 mg daily) - will continue Decadron (6 mg PO daily- started 07/26/20) - remdesevir and convalescent plasma - Continue Rocephin and azithromycin with elevated procal - O2 requirement: 7L NC - Try to wean O2 requirement, elevated HOB given body habitus Hypokalemia - f/u on morning labs CHF - on lasix at home, will hold pending improvement in Cr. - BNP: 144 but appears dry on exam with Cr: 1.61 (baseline around 1.15) - monitor fluid status DEANDRE - Cr: 1.61 (baseline ~ 1.15) - Consider IVF, restart lasix when appropriate HTN - continue home medication DM - diet controlled - mild SSI and hypoglycemia protocol ordered Atypical chest pain with indeterminate troponins, resolved - pain is improved this am, received lovenox, aspirin, and nitro in ED - EKG: T wave inversions in aVL, no ST changes - Troponin was trended-stable 0.066 -> 0.061 -> 0.063 - indeterminate trop likely 2/2 to COVID PNA PCP: Jonnie Code: FULL IVF: SL Diet: HH and CC DVT ppx: 40 mg Lovenox daily Dispo: will admit to tele for further monitoring and medical management; likely LOS > 48 hrs. Addendum - Attending - Attending Attestation Date/Time: 07/28/20 9700 I personally evaluated the patient and discussed the management with Dr. Peñaloza I agree with the History, Examination, Assessment and Plan documented above with any addition or exceptions noted below. 70 yo female admitted for acute respiratory failure due to COVID PNA. Patient stable but still requiring O2 support. Remains symptomatic. Requesting d/c to check on family. Family called to bedside today to help alleviate patient's stress. Patient now content with staying for treatment. Discussed palliative care if patient interested but would like to continue treatment. Kailyn
[2020-07-28] MEDS: Albuterol 200 PUFF (6.7GM INHALER) INH PRN (06:25)
[2020-07-28 06:37] LABS: Anion Gap 16 mmol/L (10-20); BUN (Urea Nitrogen) 17 mg/dL (9.8-20.1); Calc. Creatinine Clearance 112 mL/min (70-130); Calcium 9.3 mg/dL (7.8-10.44); Carbon Dioxide 27 mmol/L (23-31); Chloride 100 mmol/L (98-107); Glucose 130 mg/dL (83-110); Potassium 3.7 mmol/L (3.5-5.1); Sodium 139 mmol/L (136-145)
[2020-07-28 06:46] LABS: Hemoglobin 11.8 g/dL (12.0-16.0); Mean Corpuscular HGB CONC 31.1 g/dL (32.0-36.0); Mean Corpuscular Hemoglobin 28.1 pg (27.0-31.0); Mean Corpuscular Volume 90.4 fL (78.0-98.0); Mean Platelet Volume 9.6 fL (7.4-10.4); Platelet Count 324 thou/uL (130-400); RBC Distribution Width 13.2 % (11.5-14.5); Red Blood Cell (RBC) Count 4.19 mill/uL (4.20-5.40); White Blood Cell (WBC) Count 14.3 thou/uL (4.8-10.8)
[2020-07-28 07:23] LABS: Band 13 % (5-11); Lymphocytes 6 % (21-51); MDiff Complete? YES; Monocytes 4 % (0-10); Neutrophil 77 % (42-75)
[2020-07-28] MEDS: Dexamethasone 4 MG TAB PO SCH (10:45)
[2020-07-28] MEDS: Metoprolol Tartrate 100 MG TAB PO SCH ×2 (10:46→21:57)
[2020-07-28] MEDS: Lisinopril 20 MG TAB PO SCH (10:46)
[2020-07-28] MEDS: Ascorbic Acid 500 mg Chewable Tablet PO SCH (10:46)
[2020-07-28] MEDS: Aspirin 81 mg Enteric Coated Tablet PO SCH (10:46)
[2020-07-28] MEDS: Amlodipine 10 MG TAB PO SCH (10:46)
[2020-07-28] MEDS: Enoxaparin Sodium 40 MG/0.4 ML SYRINGE SC SCH (10:46)
[2020-07-28] MEDS: Ezetimibe 10 MG TAB PO SCH ×3 (21:56→21:58)
[2020-07-28] MEDS: Rosuvastatin 20 MG TAB PO SCH (21:57)
[2020-07-29] MEDS: REMDESIVIR (EUA) 100 MG in Sodium Chloride 0.9% 250 ML 230 ML IV SCH (04:05)
[2020-07-29 05:43] LABS: ALT (SGPT) 23 U/L (8-55); AST (SGOT) 42 U/L (5-34); Albumin 3.2 g/dL (3.4-4.8); Alkaline Phosphatase 123 U/L (40-110); Anion Gap 17 mmol/L (10-20); BUN (Urea Nitrogen) 24 mg/dL (9.8-20.1); Bilirubin, Total 0.8 mg/dL (0.2-1.2); Calc. Creatinine Clearance 92 mL/min (70-130); Carbon Dioxide 26 mmol/L (23-31); Chloride 100 mmol/L (98-107); Globulin 4.6 g/dL (2.4-3.5); Glucose 132 mg/dL (83-110); Potassium 3.9 mmol/L (3.5-5.1); Protein, Total 7.8 g/dL (6.0-8.3); Sodium 139 mmol/L (136-145)
[2020-07-29 05:57] LABS: Mean Corpuscular Hemoglobin 28.1 pg (27.0-31.0); Mean Corpuscular Volume 90.7 fL (78.0-98.0); Mean Platelet Volume 9.3 fL (7.4-10.4); Platelet Count 307 thou/uL (130-400); RBC Distribution Width 13.4 % (11.5-14.5); Red Blood Cell (RBC) Count 4.27 mill/uL (4.20-5.40); White Blood Cell (WBC) Count 11.3 thou/uL (4.8-10.8)
--- NOTE | 2020-07-29 06:17 | PDOC.FM ---
- Subjective Subjective: Patient overall feeling better this AM. Reports improved SOB, denies CP. Reports R hand pain that is chronic and flares in nature. - Objective MAR Reviewed: Yes Vital Signs & Weight: Vital Signs (12 hours) Temp Pulse Resp BP Pulse Ox 07/29/20 03:03 97.6 F 59 L 20 125/61 97 07/29/20 03:00 97.0 F L 59 L 20 125/61 97 07/28/20 23:00 98.5 F 77 20 133/69 95 07/28/20 19:06 99.6 F 71 18 126/73 98 Weight Weight 187.816 kg I&O: 07/27/20 07/28/20 07/29/20 06:59 06:59 06:59 Intake Total 0 150 750 Output Total 1000 Balance 0 150 -250 Result Diagrams: 07/29/20 04:30 07/29/20 04:30 Phys Exam - Physical Examination Constitutional: NAD Respiratory: no rales, no rhonchi Mild diffuse expiratory wheezing Cardiovascular: RRR, no significant murmur, no rub Gastrointestinal: soft, non-tender, no distention, positive bowel sounds Dx/Plan - Plan Plan: Acute hypoxic respiratory failure 2/2 to COVID PNA - s/p decadron, albuterol, rocephin and azithro in ED-Procal 0.88 on admission - Chest Xray and CTA consistent with COVID PNA - D-dimer: 1.20 - Lovenox for DVT ppx (40 mg daily) - will continue Decadron (6 mg PO daily- started 07/26/20) - remdesevir and convalescent plasma (07/28/20) - O2 requirement: 7L NC - Try to wean O2 requirement, elevated HOB given body habitus - Albuterol PRN, Dulera PRN, Mucinex Hypokalemia - f/u on morning labs CHF - on lasix at home, will hold pending improvement in Cr. - BNP: 144 but appears dry on exam with Cr: 1.61 (baseline around 1.15) - monitor fluid status DEANDRE - Cr: 1.61 (baseline ~ 1.15) - 500 mL fluid today, reassess in AM HTN - continue home medication DM - diet controlled - mild SSI and hypoglycemia protocol ordered Atypical chest pain with indeterminate troponins, resolved - pain is improved this am, received lovenox, aspirin, and nitro in ED - EKG: T wave inversions in aVL, no ST changes - Troponin was trended-stable 0.066 -> 0.061 -> 0.063 - indeterminate trop likely 2/2 to COVID PNA PCP: Jonnie Code: FULL IVF: SL Diet: HH and CC DVT ppx: 40 mg Lovenox daily Dispo: will admit to tele for further monitoring and medical management; likely LOS > 48 hrs. Addendum - Attending - Attending Attestation Date/Time: 07/29/20 3605 I personally evaluated the patient and discussed the management with Dr. Peñaloza I agree with the History, Examination, Assessment and Plan documented above with any addition or exceptions noted below. 70 yo female admitted for acute respiratory failure due to COVID with underlying obesity, DM, HTN, HF Patient showing improvement today. Emotionally much better. Reports some wheezing with breathing today and increased cough. Report fatigue still present. Cr stable. But mild decrease in UOP. AST still elevated. Ddimer has increased. Will continue remdesevir and steroids. Start antitussive. Add inhaler. Repeat labs in 48 hours. Give 500 ml bolus and monitor UOP. Wean O2 when able. Consult PT/OT. Kailyn
[2020-07-29 06:21] LABS: Band 12 % (5-11); Lymphocytes 9 % (21-51); MDiff Complete? YES; Monocytes 8 % (0-10); Myelocyte 1 % (0-0); Neutrophil 69 % (42-75); Reactive Lymphocytes 1 % (0-10)
[2020-07-29] MEDS: Dexamethasone 4 MG TAB PO SCH (08:28)
[2020-07-29] MEDS: Enoxaparin Sodium 40 MG/0.4 ML SYRINGE SC SCH (08:30)
[2020-07-29] MEDS: Aspirin 81 mg Enteric Coated Tablet PO SCH (08:30)
[2020-07-29] MEDS: Amlodipine 10 MG TAB PO SCH (08:30)
[2020-07-29] MEDS: Lisinopril 20 MG TAB PO SCH (08:31)
[2020-07-29] MEDS: Metoprolol Tartrate 100 MG TAB PO SCH ×2 (08:31→21:46)
[2020-07-29] MEDS: Ascorbic Acid 500 mg Chewable Tablet PO SCH (08:34)
[2020-07-29] MEDS ORDERED: Lactated Ringer's 500 ML IV SCH (10:15)
[2020-07-29] MEDS: Albuterol 200 PUFF (6.7GM INHALER) INH PRN ×2 (12:29→21:48)
[2020-07-29] MEDS: Mometasone 100 MCG/Formoterol 5 MCG 120 PUFF INHALER INH SCH (18:16)
[2020-07-29] MEDS: guaiFENesin ER 600 MG TAB PO SCH (21:46)
[2020-07-29] MEDS: Rosuvastatin 20 MG TAB PO SCH (21:47)
[2020-07-29] MEDS: Ezetimibe 10 MG TAB PO SCH (21:47)
[2020-07-30] MEDS: REMDESIVIR (EUA) 100 MG in Sodium Chloride 0.9% 250 ML 230 ML IV SCH (03:49)
--- NOTE | 2020-07-30 06:05 | PDOC.FM ---
- Subjective Subjective: Patient overall doing better. Reports better breathing but increased cough with clear sputum production. Denies CP and abdominal pain/N/V. - Objective Vital Signs & Weight: Vital Signs (12 hours) Temp Pulse Resp BP Pulse Ox 07/30/20 01:00 96.0 F L 72 20 142/73 H 99 07/30/20 00:51 97 07/29/20 21:00 98.6 F 68 17 154/90 H 95 Weight Weight 187.816 kg I&O: 07/28/20 07/29/20 07/30/20 06:59 06:59 06:59 Intake Total 191 143 4743 Output Total 1000 700 Balance 150 -250 300 Result Diagrams: 07/29/20 04:30 07/30/20 09:17 Phys Exam - Physical Examination Constitutional: NAD Respiratory: no rales, no rhonchi Diffuse expiratory wheezes Cardiovascular: RRR, no significant murmur, no rub Gastrointestinal: soft, non-tender, no distention, positive bowel sounds Dx/Plan - Plan Plan: Acute hypoxic respiratory failure 2/2 to COVID PNA - s/p decadron, albuterol, rocephin and azithro in ED-Procal 0.88 on admission - Chest Xray and CTA consistent with COVID PNA - D-dimer: 1.20 - Lovenox for DVT ppx (40 mg daily) - will continue Decadron (6 mg PO daily- started 07/26/20) - remdesevir and convalescent plasma (07/28/20) - O2 requirement: 4L NC - Try to wean O2 requirement, elevated HOB given body habitus - Albuterol PRN, Dulera NYDIA, Mucinex, Tessalon Hypokalemia - f/u on morning labs CHF - on lasix at home, will hold pending improvement in Cr. - BNP: 144 but appears dry on exam with Cr: 1.61 (baseline around 1.15) - monitor fluid status DEANDRE - Cr: 1.61 (baseline ~ 1.15) - Continue to monitor HTN - continue home medication DM - diet controlled - mild SSI and hypoglycemia protocol ordered Atypical chest pain with indeterminate troponins, resolved - pain is improved this am, received lovenox, aspirin, and nitro in ED - EKG: T wave inversions in aVL, no ST changes - Troponin was trended-stable 0.066 -> 0.061 -> 0.063 - indeterminate trop likely 2/2 to COVID PNA PCP: Jonnie Code: FULL IVF: SL Diet: HH and CC DVT ppx: 40 mg Lovenox daily Dispo: will admit to tele for further monitoring and medical management; likely LOS > 48 hrs. Addendum - Attending - Attending Attestation Date/Time: 07/30/20 1113 I personally evaluated the patient and discussed the management with Dr. Peñaloza I agree with the History, Examination, Assessment and Plan documented above with any addition or exceptions noted below. 70 yo female admitted for acute respiratory failure due to COVID with underlying obesity, DM, HTN, HF, HLD Patient continues to slowly improved. Reports fatigue declining. Still with severe dyspnea with activity. Requiring 5L NC of supp O2. Repeat labs in AM. Gl ucose remains at goal. If dose not have family support 24/7 at home will need rehab. Will need to consult CM tomorrow to assist with Dispo plan since patient now stable on NC. Kailyn
[2020-07-30] MEDS: Mometasone 100 MCG/Formoterol 5 MCG 120 PUFF INHALER INH SCH ×2 (06:09→17:03)
[2020-07-30] MEDS: Benzonatate 100 MG CAP PO PRN ×2 (06:11→17:02)
[2020-07-30] MEDS: Dexamethasone 4 MG TAB PO SCH (08:54)
[2020-07-30] MEDS: Amlodipine 10 MG TAB PO SCH (08:56)
[2020-07-30] MEDS: Ascorbic Acid 500 mg Chewable Tablet PO SCH (08:56)
[2020-07-30] MEDS: guaiFENesin ER 600 MG TAB PO SCH ×2 (08:56→21:26)
[2020-07-30] MEDS: Aspirin 81 mg Enteric Coated Tablet PO SCH (08:56)
[2020-07-30] MEDS: Enoxaparin Sodium 40 MG/0.4 ML SYRINGE SC SCH (08:56)
[2020-07-30] MEDS: Lisinopril 20 MG TAB PO SCH (08:56)
[2020-07-30] MEDS: Metoprolol Tartrate 100 MG TAB PO SCH ×2 (08:57→21:26)
[2020-07-30 09:46] LABS: Anion Gap 16 mmol/L (10-20); BUN (Urea Nitrogen) 30 mg/dL (9.8-20.1); Calc. Creatinine Clearance 92 mL/min (70-130); Calcium 8.9 mg/dL (7.8-10.44); Carbon Dioxide 27 mmol/L (23-31); Chloride 100 mmol/L (98-107); Glucose 100 mg/dL (83-110); Potassium 3.8 mmol/L (3.5-5.1); Sodium 139 mmol/L (136-145)
--- NOTE | 2020-07-30 16:12 | PDOC.FMACP ---
Advance Care Planning - Problem (1) Palliative care encounter Status: Acute Code(s): Z51.5 - ENCOUNTER FOR PALLIATIVE CARE (2) Pneumonia due to COVID-19 virus Status: Acute Code(s): U07.1 - COVID-19; J12.82 - PNEUMONIA DUE TO CORONAVIRUS DISEASE 2019 (3) CHF (congestive heart failure) Status: Chronic Code(s): I50.9 - HEART FAILURE, UNSPECIFIED (4) Diabetes mellitus Status: Chronic Code(s): E11.9 - TYPE 2 DIABETES MELLITUS WITHOUT COMPLICATIONS - Note Participants: patient, palliative care Summary: Palliative care has addressed Advanced Care Planning. The diagnosis, prognosis and goals of care were discussed. Appropriate forms and documentation to accomplish the goals of care were discussed. All questions were answered. Teaching in relation to disease processes and current health status. Elected to complete MPOA and Directive to Physician. Both notarized, original given to patient and copy placed on chart for medical records. Please refer to Palliative Care notes in note section. Palliative care will sign off as Goals addressed and Directives complete. Thank you for this very appropriate consult and allowing our team to participate in the care of Ms Ochoa. Time Spent (mins): 20
[2020-07-30] MEDS: Rosuvastatin 20 MG TAB PO SCH (21:17)
[2020-07-30] MEDS: Ezetimibe 10 MG TAB PO SCH (21:26)
[2020-07-30] MEDS: Albuterol 200 PUFF (6.7GM INHALER) INH PRN (23:33)
[2020-07-31] MEDS: REMDESIVIR (EUA) 100 MG in Sodium Chloride 0.9% 250 ML 230 ML IV SCH (03:36)
[2020-07-31 05:35] LABS: ALT (SGPT) 20 U/L (8-55); AST (SGOT) 33 U/L (5-34); Alkaline Phosphatase 121 U/L (40-110); Anion Gap 17 mmol/L (10-20); BUN (Urea Nitrogen) 35 mg/dL (9.8-20.1); Calc. Creatinine Clearance 85 mL/min (70-130); Calcium 8.6 mg/dL (7.8-10.44); Carbon Dioxide 23 mmol/L (23-31); Chloride 101 mmol/L (98-107); Globulin 4.8 g/dL (2.4-3.5); Glucose 135 mg/dL (83-110); Potassium 3.8 mmol/L (3.5-5.1); Protein, Total 7.8 g/dL (6.0-8.3); Sodium 137 mmol/L (136-145)
--- NOTE | 2020-07-31 05:55 | PDOC.FM ---
- Subjective Subjective: Overall patient reports that she is feeling well. Her L hand is sore from an IV but improving since the IV was removed. Otherwise she reports better breathing and denies CP, N/V. - Objective MAR Reviewed: Yes Vital Signs & Weight: Vital Signs (12 hours) Temp Pulse Resp BP Pulse Ox 07/31/20 03:36 97.8 F 57 L 24 H 133/76 97 07/30/20 23:33 55 L 22 H 98 07/30/20 21:20 97.8 F 70 18 139/67 94 L Weight Weight 187.816 kg I&O: 07/29/20 07/30/20 07/31/20 06:59 06:59 06:59 Intake Total 750 1000 720 Output Total 1000 700 400 Balance -250 300 320 Result Diagrams: 07/31/20 04:22 07/31/20 04:22 Phys Exam - Physical Examination Constitutional: NAD Respiratory: no wheezing, no rales, no rhonchi Cardiovascular: RRR, no significant murmur, no rub Gastrointestinal: soft, non-tender, no distention, positive bowel sounds Dx/Plan - Plan Plan: Acute hypoxic respiratory failure 2/2 to COVID PNA - s/p decadron, albuterol, rocephin and azithro in ED-Procal 0.88 on admission - Chest Xray and CTA consistent with COVID PNA - D-dimer: 1.20 - Lovenox for DVT ppx (40 mg daily) - will continue Decadron (6 mg PO daily- started 07/26/20) - remdesevir and convalescent plasma (07/28/20) - O2 requirement: 6L NC - Try to wean O2 requirement, elevated HOB given body habitus - Albuterol PRN, Dulera NYDIA, Mucinex, Tessalon Hypokalemia - f/u on morning labs CHF - on lasix at home, will hold pending improvement in Cr. - BNP: 144 but appears dry on exam with Cr: 1.61 (baseline around 1.15) - monitor fluid status DEANDRE - Cr: 1.61 (baseline ~ 1.15) - Continue to monitor HTN - continue home medication DM - diet controlled - mild SSI and hypoglycemia protocol ordered Atypical chest pain with indeterminate troponins, resolved - pain is improved this am, received lovenox, aspirin, and nitro in ED - EKG: T wave inversions in aVL, no ST changes - Troponin was trended-stable 0.066 -> 0.061 -> 0.063 - indeterminate trop likely 2/2 to COVID PNA PCP: Jonnie Code: FULL IVF: SL Diet: HH and CC DVT ppx: 40 mg Lovenox daily Dispo: will admit to tele for further monitoring and medical management; likely LOS > 48 hrs. Addendum - Attending - Attending Attestation Date/Time: 07/31/20 9971 I personally evaluated the patient and discussed the management with Dr. Peñaloza I agree with the History, Examination, Assessment and Plan documented above with any addition or exceptions noted below. 70 yo female admitted for acute respiratory failure due to COVID with underlying obesity, DM, HTN, HF, HLD Significant decline this morning. Placed on HFNC with improvement. Continue dexa. s/p plasma. Does not meet criteria for remedesivir due to renal function. Ddimer increased. Trend in AM. Follow closely. Prognosis guarded. Kailyn
[2020-07-31 06:10] LABS: Hemoglobin 12.5 g/dL (12.0-16.0); MDiff Complete? YES; Mean Corpuscular HGB CONC 32.4 g/dL (32.0-36.0); Mean Corpuscular Hemoglobin 29.1 pg (27.0-31.0); Mean Corpuscular Volume 89.9 fL (78.0-98.0); Mean Platelet Volume 9.6 fL (7.4-10.4); Platelet Count 329 thou/uL (130-400); RBC Distribution Width 13.4 % (11.5-14.5)
[2020-07-31 06:11] LABS: Band 7 % (5-11); Eosinophils 1 % (0-10); Lymphocytes 8 % (21-51); Monocytes 6 % (0-10); Neutrophil 78 % (42-75)
[2020-07-31] MEDS: Mometasone 100 MCG/Formoterol 5 MCG 120 PUFF INHALER INH SCH ×2 (06:29→17:29)
[2020-07-31] MEDS: Enoxaparin Sodium 40 MG/0.4 ML SYRINGE SC SCH (07:32)
[2020-07-31] MEDS: Ascorbic Acid 500 mg Chewable Tablet PO SCH (07:33)
[2020-07-31] MEDS: Lisinopril 20 MG TAB PO SCH (07:33)
[2020-07-31] MEDS: Amlodipine 10 MG TAB PO SCH (07:33)
[2020-07-31] MEDS: Dexamethasone 4 MG TAB PO SCH (07:33)
[2020-07-31] MEDS: Metoprolol Tartrate 100 MG TAB PO SCH ×2 (07:33→21:30)
[2020-07-31] MEDS: Aspirin 81 mg Enteric Coated Tablet PO SCH (07:33)
[2020-07-31] MEDS: guaiFENesin ER 600 MG TAB PO SCH ×2 (07:34→21:30)
[2020-07-31] MEDS ORDERED: ALPRAZolam 0.5 MG TAB PO SCH (10:15)
[2020-07-31] MEDS ORDERED: Albuterol 200 PUFF (6.7GM INHALER) INH SCH (10:30)
[2020-07-31] MEDS ORDERED: Docusate 100 MG CAP PO PRN (11:06)
[2020-07-31] MEDS: Albuterol 200 PUFF (6.7GM INHALER) INH SCH ×3 (15:07→21:30)
[2020-07-31] MEDS: Ezetimibe 10 MG TAB PO SCH (21:29)
[2020-07-31] MEDS: Rosuvastatin 20 MG TAB PO SCH (21:29)
[2020-08-01] MEDS: Albuterol 200 PUFF (6.7GM INHALER) INH SCH ×6 (03:56→22:00)
--- NOTE | 2020-08-01 05:39 | PDOC.FM ---
- Subjective Subjective: Patient is reporting that she is breathing well on HFNC. She denies CP, N/V. She is still wishing to go home. Had discussion today that she likely will not be going home today or even tomorrow. - Objective MAR Reviewed: No Vital Signs & Weight: Vital Signs (12 hours) Temp Pulse Resp BP Pulse Ox 08/01/20 03:47 98.4 F 61 28 H 157/72 H 98 07/31/20 23:00 98.3 F 48 L 22 H 129/67 99 07/31/20 19:00 98.1 F 61 20 138/74 99 Weight Weight 183.506 kg I&O: 07/30/20 07/31/20 08/01/20 06:59 06:59 06:59 Intake Total 0288 028 7444 Output Total 085 688 4389 Balance 300 320 -50 Result Diagrams: 07/31/20 04:22 07/31/20 04:22 Phys Exam - Physical Examination Constitutional: NAD Respiratory: no rales, no rhonchi Mild diffuse end expiratory wheezes Cardiovascular: RRR, no significant murmur, no rub Gastrointestinal: soft, non-tender, no distention, positive bowel sounds Musculoskeletal: no edema, pulses present Dx/Plan - Plan Plan: Acute hypoxic respiratory failure 2/2 to COVID PNA - s/p decadron, albuterol, rocephin and azithro in ED-Procal 0.88 on admission - Chest Xray and CTA consistent with COVID PNA - D-dimer: 1.20 - Lovenox for DVT ppx (40 mg daily) - will continue Decadron (6 mg PO daily- started 07/26/20) - remdesevir and convalescent plasma (07/28/20) - O2 requirement: HFNC 55L/60% - Try to wean O2 requirement, elevated HOB given body habitus - Albuterol PRN, Dulera NYDIA, Mucinex, Tessalon Hypokalemia - f/u on morning labs CHF - on lasix at home - BNP: 144 on admission - monitor fluid status DEANDRE - Cr: 1.79 (baseline ~ 1.15) - Continue to monitor - consider Lasix with no improvement in SCr with IVF HTN - continue home medication DM - diet controlled - mild SSI and hypoglycemia protocol ordered Atypical chest pain with indeterminate troponins, resolved - pain is improved this am, received lovenox, aspirin, and nitro in ED - EKG: T wave inversions in aVL, no ST changes - Troponin was trended-stable 0.066 -> 0.061 -> 0.063 - indeterminate trop likely 2/2 to COVID PNA PCP: Jonnie Code: FULL IVF: SL Diet: HH and CC DVT ppx: 40 mg Lovenox daily Dispo: will admit to tele for further monitoring and medical management; likely LOS > 48 hrs. Addendum - Attending - Attending Attestation Date/Time: 08/01/20 1410 I personally evaluated the patient and discussed the management with Dr. Peñaloza I agree with the History, Examination, Assessment and Plan documented above with any addition or exceptions noted below. 70 yo female admitted for acute respiratory failure due to COVID with underlying obesity, DM, HTN, HF, HLD Slow improvement but better oxygenation than yesterday. Remains stable on HFNC at 47%. Repeat labs in AM. Continue IVFs due to poor PO intake. Continue BM reg. Continue H2 sonia. Follow closely. Poor prognosis. Kailyn
[2020-08-01] MEDS: Mometasone 100 MCG/Formoterol 5 MCG 120 PUFF INHALER INH SCH ×2 (06:02→18:59)
[2020-08-01] MEDS: Amlodipine 10 MG TAB PO SCH (08:12)
[2020-08-01] MEDS: Enoxaparin Sodium 40 MG/0.4 ML SYRINGE SC SCH (08:12)
[2020-08-01] MEDS: Polyethylene Glycol 3350 17 GM Packet PO SCH (08:12)
[2020-08-01] MEDS: Ascorbic Acid 500 mg Chewable Tablet PO SCH (08:12)
[2020-08-01] MEDS: Dexamethasone 4 MG TAB PO SCH (08:13)
[2020-08-01] MEDS: Aspirin 81 mg Enteric Coated Tablet PO SCH (08:13)
[2020-08-01] MEDS: guaiFENesin ER 600 MG TAB PO SCH ×2 (08:13→19:57)
[2020-08-01] MEDS: Metoprolol Tartrate 100 MG TAB PO SCH ×2 (08:13→19:57)
[2020-08-01] MEDS: Lisinopril 20 MG TAB PO SCH (08:13)
[2020-08-01] MEDS ORDERED: Milk Of Magnesia 30 ML UDCUP PO PRN (08:41)
[2020-08-01] MEDS ORDERED: Docusate 100 MG CAP PO PRN (08:41)
[2020-08-01] MEDS ORDERED: Famotidine 20 MG TAB PO PRN (08:42)
[2020-08-01] MEDS ORDERED: Polyethylene Glycol 3350 17 GM Packet PO SCH (09:00)
[2020-08-01] MEDS: Lactated Ringer's 1,000 ML IV SCH ×2 (11:03→21:59)
[2020-08-01] MEDS: Benzonatate 100 MG CAP PO PRN (19:57)
[2020-08-01] MEDS: Ezetimibe 10 MG TAB PO SCH (19:57)
[2020-08-01] MEDS: Rosuvastatin 20 MG TAB PO SCH (19:57)
[2020-08-02] MEDS: Albuterol 200 PUFF (6.7GM INHALER) INH SCH ×6 (02:43→21:03)
--- NOTE | 2020-08-02 05:37 | PDOC.FM ---
- Subjective Subjective: Patient is reporting that she is breathing well on HFNC. She denies CP, N/V. HFNC 54L/68%, satting 97. - Objective MAR Reviewed: Yes Vital Signs & Weight: Vital Signs (12 hours) Temp Pulse Resp BP Pulse Ox 08/02/20 03:00 98.2 F 58 L 16 138/67 97 08/02/20 00:36 94 L 08/01/20 23:04 98 F 52 L 18 133/63 94 L 08/01/20 19:25 98.4 F 67 21 H 129/69 98 Weight Weight 183.506 kg I&O: 07/31/20 08/01/20 08/02/20 06:59 06:59 06:59 Intake Total 720 2132 3236 Output Total 400 2350 1950 Balance 320 -218 1286 Result Diagrams: 08/02/20 05:03 08/02/20 05:03 Phys Exam - Physical Examination Constitutional: NAD HEENT: PERRLA, moist MMs mild diffuse expiratory wheeze Cardiovascular: RRR, no significant murmur Gastrointestinal: soft, non-tender, positive bowel sounds Musculoskeletal: no edema, pulses present Neurological: non-focal, normal sensation Dx/Plan - Plan Plan: Acute hypoxic respiratory failure 2/2 to COVID PNA - s/p decadron, albuterol, rocephin and azithro in ED-Procal 0.88 on admission - Chest Xray and CTA consistent with COVID PNA - D-dimer: 1.20 - Lovenox for DVT ppx (40 mg daily) - will continue Decadron (6 mg PO daily- started 07/26/20) - remdesevir and convalescent plasma (07/28/20) - O2 requirement: HFNC 54L/68% - Try to wean O2 requirement, elevated HOB given body habitus - Albuterol PRN, Dulera NYDIA, Mucinex, Tessalon CHF - on lasix at home - BNP: 144 on admission - monitor fluid status DEANDRE - Cr: 1.79 -> 1.56 (baseline ~ 1.15) - Improvement today after mild IVFs 08/01, will continue mild IVFs today and recheck in the am HTN - continue home medication DM - diet controlled - mild SSI and hypoglycemia protocol ordered Atypical chest pain with indeterminate troponins, resolved - Denies chest pain today, received lovenox, aspirin, and nitro in ED - EKG: T wave inversions in aVL, no ST changes - Troponin was trended-stable 0.066 -> 0.061 -> 0.063 - indeterminate trop likely 2/2 to COVID PNA, no longer having CP Hypokalemia, resolved - continue to monitor PCP: Jonnie Code: FULL IVF: LR @ 100, stop after 2 bags Diet: HH and CC DVT ppx: 40 mg Lovenox daily Dispo: admitted to tele, likely LOS > 48 hrs. Addendum - Attending - Attending Attestation Date/Time: 08/02/20 9035 I personally evaluated the patient and discussed the management with Dr. Alcazar I agree with the History, Examination, Assessment and Plan documented above with any addition or exceptions noted below. Advance as tolerated stable current HF oxygen wean supplemental oxygenation as tolerated .
[2020-08-02 05:42] LABS: ALT (SGPT) 15 U/L (8-55); AST (SGOT) 32 U/L (5-34); Albumin 2.8 g/dL (3.4-4.8); Alkaline Phosphatase 114 U/L (40-110); Anion Gap 15 mmol/L (10-20); BUN (Urea Nitrogen) 33 mg/dL (9.8-20.1); Bilirubin, Total 1.2 mg/dL (0.2-1.2); Calc. Creatinine Clearance 96 mL/min (70-130); Calcium 8.3 mg/dL (7.8-10.44); Carbon Dioxide 21 mmol/L (23-31); Chloride 103 mmol/L (98-107); Globulin 5.1 g/dL (2.4-3.5); Glucose 97 mg/dL (83-110); Potassium 3.9 mmol/L (3.5-5.1); Protein, Total 7.9 g/dL (6.0-8.3); Sodium 135 mmol/L (136-145)
[2020-08-02 06:38] LABS: Hemoglobin 12.7 g/dL (12.0-16.0); MDiff Complete? YES; Mean Corpuscular HGB CONC 32.4 g/dL (32.0-36.0); Mean Corpuscular Volume 89.6 fL (78.0-98.0); Mean Platelet Volume 9.6 fL (7.4-10.4); Platelet Count 277 thou/uL (130-400); RBC Distribution Width 13.4 % (11.5-14.5); Red Blood Cell (RBC) Count 4.38 mill/uL (4.20-5.40)
[2020-08-02 06:39] LABS: Band 4 % (5-11); Eosinophils 1 % (0-10); Lymphocytes 7 % (21-51); Monocytes 24 % (0-10); Neutrophil 64 % (42-75); Platelet Morphology Comment Appears Adequate; RBC Morphology Normal
[2020-08-02] MEDS: Mometasone 100 MCG/Formoterol 5 MCG 120 PUFF INHALER INH SCH ×2 (06:41→17:15)
[2020-08-02] MEDS: Polyethylene Glycol 3350 17 GM Packet PO SCH (08:34)
[2020-08-02] MEDS: Dexamethasone 4 MG TAB PO SCH (08:34)
[2020-08-02] MEDS: guaiFENesin ER 600 MG TAB PO SCH ×2 (08:34→21:02)
[2020-08-02] MEDS: Aspirin 81 mg Enteric Coated Tablet PO SCH (08:34)
[2020-08-02] MEDS: Enoxaparin Sodium 40 MG/0.4 ML SYRINGE SC SCH (08:34)
[2020-08-02] MEDS: Lisinopril 20 MG TAB PO SCH (08:35)
[2020-08-02] MEDS: Ascorbic Acid 500 mg Chewable Tablet PO SCH (08:35)
[2020-08-02] MEDS: Metoprolol Tartrate 100 MG TAB PO SCH ×2 (08:35→21:02)
[2020-08-02] MEDS: Amlodipine 10 MG TAB PO SCH (08:35)
[2020-08-02] MEDS ORDERED: Docusate 100 MG CAP PO SCH (08:45)
[2020-08-02] MEDS: Lactated Ringer's 1,000 ML IV SCH ×2 (11:16→21:04)
[2020-08-02] MEDS: Rosuvastatin 20 MG TAB PO SCH (21:02)
[2020-08-02] MEDS: Ezetimibe 10 MG TAB PO SCH (21:02)
[2020-08-03] MEDS: Benzonatate 100 MG CAP PO PRN ×2 (02:43→21:37)
[2020-08-03] MEDS: Albuterol 200 PUFF (6.7GM INHALER) INH SCH ×6 (02:43→21:36)
[2020-08-03 05:05] LABS: Anion Gap 13 mmol/L (10-20); BUN (Urea Nitrogen) 34 mg/dL (9.8-20.1); Calc. Creatinine Clearance 101 mL/min (70-130); Carbon Dioxide 22 mmol/L (23-31); Chloride 104 mmol/L (98-107); Glucose 116 mg/dL (83-110); Potassium 3.9 mmol/L (3.5-5.1); Sodium 135 mmol/L (136-145)
--- NOTE | 2020-08-03 05:25 | PDOC.FM ---
- Subjective Subjective: Patient is reporting that she is breathing well on HFNC. She denies CP, N/V. HFNC 55/56%, satting 95. - Objective MAR Reviewed: Yes Vital Signs & Weight: Vital Signs (12 hours) Temp Pulse Resp BP Pulse Ox 08/03/20 05:03 95 08/03/20 02:43 99.4 F 70 26 H 139/78 99 08/02/20 23:33 79 23 H 95 08/02/20 19:21 99.2 F 67 23 H 108/59 L 95 Weight Weight 184.385 kg I&O: 08/01/20 08/02/20 08/03/20 06:59 06:59 06:59 Intake Total 2132 3912 1530 Output Total 2350 2485 950 Balance -218 1427 580 Result Diagrams: 08/02/20 05:03 08/03/20 04:26 Phys Exam - Physical Examination Constitutional: NAD HEENT: PERRLA, moist MMs mild diffuse wheezing Cardiovascular: RRR, no significant murmur Gastrointestinal: soft, non-tender Musculoskeletal: no edema Neurological: non-focal Dx/Plan - Plan Plan: Acute hypoxic respiratory failure 2/2 to COVID PNA - s/p decadron, albuterol, rocephin and azithro in ED-Procal 0.88 on admission - Chest Xray and CTA consistent with COVID PNA - D-dimer: 1.20 - Lovenox for DVT ppx (40 mg daily) - will continue Decadron (6 mg PO daily- started 07/26/20) - remdesevir and convalescent plasma (07/28/20) - O2 requirement: HFNC 55/56% - Try to wean O2 requirement, elevated HOB given body habitus - Albuterol PRN, Dulera NYDIA, Mucinex, Tessalon CHF - on lasix at home - BNP: 144 on admission - monitor fluid status DEANDRE - Cr: 1.79 -> 1.56 > 1.48 (baseline ~ 1.15) - Improvement after mild fluids x 2 days, will hold on continuing fluids today d/t CHF - recheck bmp in am HTN - continue home medication DM - diet controlled - mild SSI and hypoglycemia protocol ordered Atypical chest pain with indeterminate troponins, resolved - Denies chest pain today, received lovenox, aspirin, and nitro in ED - EKG: T wave inversions in aVL, no ST changes - Troponin was trended-stable 0.066 -> 0.061 -> 0.063 - indeterminate trop likely 2/2 to COVID PNA, no longer having CP Hypokalemia, resolved - continue to monitor PCP: Jonnie Code: FULL IVF: SL Diet: HH and CC DVT ppx: 40 mg Lovenox daily Dispo: admitted to tele, likely LOS > 48 hrs. Addendum - Attending - Attending Attestation Date/Time: 08/03/20 6823 I personally evaluated the patient and discussed the management with Dr. Alcazar I agree with the History, Examination, Assessment and Plan documented above with any addition or exceptions noted below. 70 yo with Covid PNA and multiple comorbid conditions stable on HFNC continue to wean as tolerated and look into rehab options if continued anticipated prolonged stay.
[2020-08-03] MEDS: Mometasone 100 MCG/Formoterol 5 MCG 120 PUFF INHALER INH SCH ×2 (06:20→17:44)
[2020-08-03] MEDS ORDERED: Milk Of Magnesia 30 ML UDCUP PO SCH (08:30)
[2020-08-03] MEDS: Polyethylene Glycol 3350 17 GM Packet PO SCH (08:39)
[2020-08-03] MEDS: Aspirin 81 mg Enteric Coated Tablet PO SCH (08:40)
[2020-08-03] MEDS: Lisinopril 20 MG TAB PO SCH (08:40)
[2020-08-03] MEDS: Enoxaparin Sodium 40 MG/0.4 ML SYRINGE SC SCH (08:40)
[2020-08-03] MEDS: Metoprolol Tartrate 100 MG TAB PO SCH ×2 (08:41→21:37)
[2020-08-03] MEDS: guaiFENesin ER 600 MG TAB PO SCH ×2 (08:41→21:37)
[2020-08-03] MEDS: Ascorbic Acid 500 mg Chewable Tablet PO SCH (08:42)
[2020-08-03] MEDS: Docusate 100 MG CAP PO SCH ×2 (08:42→21:38)
[2020-08-03] MEDS: Amlodipine 10 MG TAB PO SCH (08:42)
[2020-08-03] MEDS: Dexamethasone 4 MG TAB PO SCH (08:42)
[2020-08-03] MEDS: Ezetimibe 10 MG TAB PO SCH (21:37)
[2020-08-03] MEDS: Rosuvastatin 20 MG TAB PO SCH (21:37)
[2020-08-04] MEDS: Albuterol 200 PUFF (6.7GM INHALER) INH SCH ×6 (02:29→22:09)
[2020-08-04 05:41] LABS: ALT (SGPT) 14 U/L (8-55); AST (SGOT) 23 U/L (5-34); Albumin 2.6 g/dL (3.4-4.8); Alkaline Phosphatase 102 U/L (40-110); Anion Gap 13 mmol/L (10-20); BUN (Urea Nitrogen) 30 mg/dL (9.8-20.1); Bilirubin, Total 0.9 mg/dL (0.2-1.2); Calc. Creatinine Clearance 115 mL/min (70-130); Calcium 8.1 mg/dL (7.8-10.44); Carbon Dioxide 20 mmol/L (23-31); Chloride 106 mmol/L (98-107); Globulin 4.9 g/dL (2.4-3.5); Glucose 100 mg/dL (83-110); Potassium 4.4 mmol/L (3.5-5.1); Protein, Total 7.5 g/dL (6.0-8.3); Sodium 135 mmol/L (136-145)
[2020-08-04] MEDS: Mometasone 100 MCG/Formoterol 5 MCG 120 PUFF INHALER INH SCH ×2 (05:46→17:51)
[2020-08-04 05:53] LABS: Band 3 % (5-11); Hemoglobin 11.6 g/dL (12.0-16.0); Hypochromia SLIGHT = 6-15 cells (100X) (0-5/hpf); Lymphocytes 13 % (21-51); MDiff Complete? YES; Mean Corpuscular HGB CONC 32.8 g/dL (32.0-36.0); Mean Corpuscular Hemoglobin 29.3 pg (27.0-31.0); Mean Corpuscular Volume 89.4 fL (78.0-98.0); Mean Platelet Volume 9.8 fL (7.4-10.4); Monocytes 8 % (0-10); Neutrophil 76 % (42-75); Platelet Count 266 thou/uL (130-400); Platelet Morphology Comment Appears Adequate; Promyelocytes 1 % (0-0); RBC Distribution Width 13.4 % (11.5-14.5); Red Blood Cell (RBC) Count 3.97 mill/uL (4.20-5.40); White Blood Cell (WBC) Count 16.5 thou/uL (4.8-10.8)
--- NOTE | 2020-08-04 06:28 | PDOC.FM ---
- Subjective Subjective: Pt states her breathing is easier today with less SOB on HFNC FIO2 of 63% and O2 55 with 97% O2 sat per resp therapy. Procal down trending 0.59. had large BM yesterday - Objective MAR Reviewed: Yes Vital Signs & Weight: Vital Signs (12 hours) Temp Pulse Resp BP Pulse Ox 08/04/20 04:25 97.9 F 63 24 H 127/67 99 08/04/20 04:23 97 08/04/20 00:15 22 H 97 08/03/20 19:30 98 F 68 28 H 121/67 98 Weight Weight 184.385 kg I&O: 08/02/20 08/03/20 08/04/20 06:59 06:59 06:59 Intake Total 3912 1530 240 Output Total 2485 950 1450 Balance 1427 580 -1210 Result Diagrams: 08/04/20 04:46 08/04/20 04:46 Phys Exam - Physical Examination Constitutional: NAD HFNC in place HEENT: moist MMs, sclera anicteric Neck: supple Respiratory: no wheezing, no rales, no rhonchi, clear to auscultation bilateral Cardiovascular: RRR, no significant murmur Gastrointestinal: soft, non-tender, no distention, positive bowel sounds Neurological: non-focal, moves all 4 limbs Psychiatric: normal affect, A&O x 3 Skin: normal turgor, cap refill <2 seconds Dx/Plan (1) Acute respiratory failure with hypoxia Code(s): J96.01 - ACUTE RESPIRATORY FAILURE WITH HYPOXIA Status: Acute (2) Pneumonia due to COVID-19 virus Code(s): U07.1 - COVID-19; J12.82 - PNEUMONIA DUE TO CORONAVIRUS DISEASE 2019 Status: Acute - Plan Plan: Acute hypoxic respiratory failure 2/2 to COVID PNA - s/p decadron, albuterol, rocephin and azithro in ED-Procal 0.88 on admission - Chest Xray and CTA consistent with COVID PNA - D-dimer: 1.20 - Lovenox for DVT ppx (40 mg daily). anti-Xa level @ 1300 today - will continue Decadron (6 mg PO daily- started 07/26/20) - remdesevir and convalescent plasma (07/28/20) - O2 requirement: HFNC 63/55% - Try to wean O2 requirement, elevated HOB given body habitus - Albuterol PRN, Dulera NYDIA, Mucinex, Tessalon, vitamin D - Procal 0.88-> 0.59 CHF - on lasix at home - BNP: 144 on admission - monitor fluid status DEANDRE - Cr: 1.79 -> 1.56 > 1.48 (baseline ~ 1.15) - Improvement after mild fluids x 2 days, will hold on continuing fluids today d/t CHF - recheck bmp in am HTN - continue home medication DM - diet controlled - mild SSI and hypoglycemia protocol ordered Atypical chest pain with indeterminate troponins, resolved - Denies chest pain today, received lovenox, aspirin, and nitro in ED - EKG: T wave inversions in aVL, no ST changes - Troponin was trended-stable 0.066 -> 0.061 -> 0.063 - indeterminate trop likely 2/2 to COVID PNA, no longer having CP Hypokalemia, resolved - continue to monitor PCP: Jonnie Code: FULL IVF: SL Diet: HH and CC DVT ppx: 40 mg Lovenox daily Dispo: admitted to tele, likely LOS > 48 hrs. Addendum - Attending - Attending Attestation Date/Time: 08/04/20 6185 I personally evaluated the patient and discussed the management with Dr. Ellis. I agree with the History, Examination, Assessment and Plan documented above with any addition or exceptions noted below.
[2020-08-04] MEDS: Enoxaparin Sodium 40 MG/0.4 ML SYRINGE SC SCH ×2 (08:12→22:08)
[2020-08-04] MEDS: Dexamethasone 4 MG TAB PO SCH (08:12)
[2020-08-04] MEDS: Ascorbic Acid 500 mg Chewable Tablet PO SCH (08:13)
[2020-08-04] MEDS: Aspirin 81 mg Enteric Coated Tablet PO SCH (08:13)
[2020-08-04] MEDS: guaiFENesin ER 600 MG TAB PO SCH ×2 (08:13→22:05)
[2020-08-04] MEDS: Docusate 100 MG CAP PO SCH ×3 (08:13→22:08)
[2020-08-04] MEDS: Amlodipine 10 MG TAB PO SCH (08:13)
[2020-08-04] MEDS: Lisinopril 20 MG TAB PO SCH ×2 (08:13→08:45)
[2020-08-04] MEDS: Polyethylene Glycol 3350 17 GM Packet PO SCH (08:14)
[2020-08-04] MEDS: Metoprolol Tartrate 100 MG TAB PO SCH ×2 (08:14→22:05)
[2020-08-04] MEDS ORDERED: Polyethylene Glycol 3350 17 GM Packet PO SCH ×2 (09:00)
[2020-08-04] MEDS: Cholecalciferol (Vitamin D3) 400 UNITS TAB PO SCH (10:19)
[2020-08-04] MEDS: Rosuvastatin 20 MG TAB PO SCH (22:05)
[2020-08-04] MEDS: Ezetimibe 10 MG TAB PO SCH (22:06)
[2020-08-05] MEDS: Albuterol 200 PUFF (6.7GM INHALER) INH SCH ×6 (04:46→21:06)
[2020-08-05] MEDS: Mometasone 100 MCG/Formoterol 5 MCG 120 PUFF INHALER INH SCH ×2 (06:20→17:38)
--- NOTE | 2020-08-05 07:27 | PDOC.FM ---
- Subjective Subjective: Pt improving and tolerating lower FIO2 of 44% and 50 L HFNC, continuing to wean. States she is feeling much better still had cough with productive sputum. - Objective MAR Reviewed: Yes Vital Signs & Weight: Vital Signs (12 hours) Temp Pulse Resp BP Pulse Ox 08/05/20 04:57 92 L 08/05/20 04:05 98 F 54 L 20 131/67 92 L 08/04/20 23:25 98 F 59 L 14 115/59 L 100 08/04/20 19:28 97.9 F 70 18 119/60 92 L Weight Weight 184.385 kg I&O: 08/04/20 08/05/20 08/06/20 06:59 06:59 06:59 Intake Total 240 840 Output Total 1450 1800 Balance -1210 -960 Result Diagrams: 08/06/20 04:47 08/06/20 04:47 Phys Exam - Physical Examination Constitutional: NAD HFNC in place HEENT: moist MMs, sclera anicteric Neck: no JVD, supple, full ROM Respiratory: wheezing present (end expiratory wheezing. ) Cardiovascular: RRR, no significant murmur, no rub Gastrointestinal: soft, non-tender, no distention, positive bowel sounds obese Neurological: non-focal, moves all 4 limbs Psychiatric: normal affect, A&O x 3 Skin: normal turgor, cap refill <2 seconds Dx/Plan (1) Acute respiratory failure with hypoxia Code(s): J96.01 - ACUTE RESPIRATORY FAILURE WITH HYPOXIA Status: Acute (2) Pneumonia due to COVID-19 virus Code(s): U07.1 - COVID-19; J12.82 - PNEUMONIA DUE TO CORONAVIRUS DISEASE 2019 Status: Acute - Plan Plan: Acute hypoxic respiratory failure 2/2 to COVID PNA - s/p decadron, albuterol, rocephin and azithro in ED-Procal 0.88 on admission - Chest Xray and CTA consistent with COVID PNA - D-dimer: 1.20, 3.92, 5.7, 5.64, 3.44 - Lovenox for DVT ppx was (40 mg daily) up until 08/04. anti-Xa level 08/04 was < 0.1 and lovenox was increased to 40 mg BID. will recheck after 4th dose. - will continue Decadron (6 mg PO daily- started 07/26/20) - remdesevir and convalescent plasma (07/28/20) - O2 requirement: HFNC 63/55% - Try to wean O2 requirement, elevated HOB given body habitus - Albuterol PRN, Dulera NYDIA, Mucinex, Tessalon, vitamin D - Procal 0.88-> 0.59. no further antibiotic therapy necessary CHF - on lasix at home - BNP: 144 on admission - monitor fluid status DEANDRE - Cr: 1.79 -> 1.56 > 1.48 > 1.31 (baseline ~ 1.15) - Improvement after mild fluids x 2 days, will hold on continuing fluids today d/t CHF - recheck bmp HTN - continue home medication DM - diet controlled - mild SSI and hypoglycemia protocol ordered Atypical chest pain with indeterminate troponins, resolved - Denies chest pain today, received lovenox, aspirin, and nitro in ED - EKG: T wave inversions in aVL, no ST changes - Troponin was trended-stable 0.066 -> 0.061 -> 0.063 - indeterminate trop likely 2/2 to COVID PNA, no longer having CP Hypokalemia, resolved - continue to monitor PCP: Jonnie Code: FULL IVF: SL Diet: HH and CC DVT ppx: 40 mg Lovenox bid Dispo: admitted to tele inpt, likely LOS > 48 hrs. Addendum - Attending - Attending Attestation Date/Time: 08/06/20 8681 I personally evaluated the patient and discussed the management with Dr. Ellis yesterday. I agree with the History, Examination, Assessment and Plan documented above with any addition or exceptions noted below.
[2020-08-05] MEDS: Amlodipine 10 MG TAB PO SCH (08:19)
[2020-08-05] MEDS: Cholecalciferol (Vitamin D3) 400 UNITS TAB PO SCH (08:19)
[2020-08-05] MEDS: Dexamethasone 4 MG TAB PO SCH (08:19)
[2020-08-05] MEDS: guaiFENesin ER 600 MG TAB PO SCH ×2 (08:19→21:05)
[2020-08-05] MEDS: Aspirin 81 mg Enteric Coated Tablet PO SCH (08:19)
[2020-08-05] MEDS: Ascorbic Acid 500 mg Chewable Tablet PO SCH (08:20)
[2020-08-05] MEDS: Metoprolol Tartrate 100 MG TAB PO SCH ×2 (08:20→21:05)
[2020-08-05] MEDS: Enoxaparin Sodium 40 MG/0.4 ML SYRINGE SC SCH ×2 (08:20→21:06)
[2020-08-05] MEDS: Polyethylene Glycol 3350 17 GM Packet PO SCH (08:21)
[2020-08-05] MEDS: Lisinopril 20 MG TAB PO SCH (08:21)
[2020-08-05] MEDS: Docusate 100 MG CAP PO SCH ×2 (08:21→21:06)
[2020-08-05] MEDS: Rosuvastatin 20 MG TAB PO SCH (21:05)
[2020-08-05] MEDS: Ezetimibe 10 MG TAB PO SCH (21:05)
[2020-08-06] MEDS: Albuterol 200 PUFF (6.7GM INHALER) INH SCH ×5 (05:14→17:51)
[2020-08-06 05:52] LABS: #Lymphocytes 1.2 thou/uL (1.20-3.40); #Monocytes 1.5 thou/uL (0.11-0.59); #Neutrophils 12.3 thou/uL (1.40-6.50); %Basophils 0.1 % (0.0-1.0); %Eosinophils 0.2 % (0.0-10.0); %Lymphocytes 7.9 % (21.0-51.0); %Monocytes 9.7 % (0.0-10.0); Hemoglobin 11.7 g/dL (12.0-16.0); Mean Corpuscular HGB CONC 32.5 g/dL (32.0-36.0); Mean Corpuscular Volume 89.2 fL (78.0-98.0); Mean Platelet Volume 10.5 fL (7.4-10.4); Platelet Count 318 thou/uL (130-400); RBC Distribution Width 13.4 % (11.5-14.5); Red Blood Cell (RBC) Count 4.05 mill/uL (4.20-5.40); White Blood Cell (WBC) Count 15.1 thou/uL (4.8-10.8)
[2020-08-06] MEDS: Mometasone 100 MCG/Formoterol 5 MCG 120 PUFF INHALER INH SCH ×2 (06:07→17:51)
[2020-08-06 06:09] LABS: ALT (SGPT) 11 U/L (8-55); AST (SGOT) 15 U/L (5-34); Albumin 2.7 g/dL (3.4-4.8); Alkaline Phosphatase 96 U/L (40-110); Anion Gap 13 mmol/L (10-20); BUN (Urea Nitrogen) 33 mg/dL (9.8-20.1); Bilirubin, Total 1.1 mg/dL (0.2-1.2); Calc. Creatinine Clearance 118 mL/min (70-130); Calcium 8.3 mg/dL (7.8-10.44); Carbon Dioxide 24 mmol/L (23-31); Chloride 105 mmol/L (98-107); Globulin 4.9 g/dL (2.4-3.5); Glucose 95 mg/dL (83-110); Protein, Total 7.6 g/dL (6.0-8.3); Sodium 138 mmol/L (136-145)
--- NOTE | 2020-08-06 07:52 | PDOC.FM ---
- Subjective Subjective: Pt tolerating HFNC well down to 40 L and 45% FIO2 states her cough and sob is improving a little each day denies constipation states when she gets up to go to the bathroom she gets very sob. - Objective Vital Signs & Weight: Vital Signs (12 hours) Temp Pulse Resp BP Pulse Ox 08/06/20 04:00 97.9 F 63 16 131/67 94 L 08/06/20 00:30 97 08/05/20 23:48 92 L 08/05/20 20:00 98 F 63 18 131/66 97 Weight Admit Weight 187.833 kg Weight 184.385 kg I&O: 08/05/20 08/06/20 08/07/20 06:59 06:59 06:59 Intake Total 840 800 Output Total 1800 600 Balance -960 200 Result Diagrams: 08/06/20 04:47 08/06/20 04:47 Phys Exam - Physical Examination Constitutional: NAD HFNC in place HEENT: moist MMs, sclera anicteric Neck: supple, full ROM Respiratory: no wheezing, no rales, no rhonchi, clear to auscultation bilateral Cardiovascular: RRR, no significant murmur, no rub Gastrointestinal: soft, no distention, positive bowel sounds Musculoskeletal: pulses present Neurological: non-focal, moves all 4 limbs Psychiatric: normal affect, A&O x 3 Skin: normal turgor, cap refill <2 seconds Dx/Plan (1) Acute respiratory failure with hypoxia Code(s): J96.01 - ACUTE RESPIRATORY FAILURE WITH HYPOXIA Status: Acute (2) Pneumonia due to COVID-19 virus Code(s): U07.1 - COVID-19; J12.82 - PNEUMONIA DUE TO CORONAVIRUS DISEASE 2019 Status: Acute - Plan Plan: Acute hypoxic respiratory failure 2/2 to COVID PNA - s/p decadron, albuterol, rocephin and azithro in ED-Procal 0.88 on admission - Chest Xray and CTA consistent with COVID PNA - D-dimer: 1.20, 3.92, 5.7, 5.64, 3.44, 2.43 - Lovenox for DVT ppx was (40 mg daily) up until 08/04. anti-Xa level 08/04 was <0.1 and lovenox was increased to 40 mg BID. will recheck after 4th dose. - will continue Decadron (6 mg PO daily- started 07/26/20) - remdesevir and convalescent plasma (07/28/20) - O2 requirement: HFNC 63/55% - Try to wean O2 requirement, elevated HOB given body habitus - Albuterol PRN, Dulera NYDIA, Mucinex, Tessalon, vitamin D - Procal 0.88-> 0.59. no further antibiotic therapy necessary - trend labs Q3 days as they are showing stability and improvement CHF - on lasix at home - BNP: 144 on admission - monitor fluid status DEANDRE - Cr: 1.79 -> 1.56 > 1.48 > 1.31 > 1.27(baseline ~ 1.15) - Improvement after mild fluids x 2 days, will hold on continuing fluids today d/t CHF - recheck bmp HTN - continue home medication DM - diet controlled - mild SSI and hypoglycemia protocol ordered Atypical chest pain with indeterminate troponins, resolved - Denies chest pain today, received lovenox, aspirin, and nitro in ED - EKG: T wave inversions in aVL, no ST changes - Troponin was trended-stable 0.066 -> 0.061 -> 0.063 - indeterminate trop likely 2/2 to COVID PNA, no longer having CP Hypokalemia, resolved - continue to monitor PCP: Jonnie Code: FULL IVF: SL Diet: HH and CC DVT ppx: 40 mg Lovenox bid Dispo: admitted to tele inpt, likely LOS > 48 hrs. Addendum - Attending - Attending Attestation Date/Time: 08/06/20 0772 I personally evaluated the patient and discussed the management with Dr. Ellis. I agree with the History, Examination, Assessment and Plan documented above with any addition or exceptions noted below.
[2020-08-06] MEDS: Enoxaparin Sodium 40 MG/0.4 ML SYRINGE SC SCH ×2 (07:59→20:20)
[2020-08-06] MEDS: Aspirin 81 mg Enteric Coated Tablet PO SCH (08:00)
[2020-08-06] MEDS: Metoprolol Tartrate 100 MG TAB PO SCH ×2 (08:01→21:00)
[2020-08-06] MEDS: Ascorbic Acid 500 mg Chewable Tablet PO SCH (08:01)
[2020-08-06] MEDS: Amlodipine 10 MG TAB PO SCH (08:01)
[2020-08-06] MEDS: Cholecalciferol (Vitamin D3) 400 UNITS TAB PO SCH (08:01)
[2020-08-06] MEDS: guaiFENesin ER 600 MG TAB PO SCH ×2 (08:02→20:20)
[2020-08-06] MEDS: Dexamethasone 4 MG TAB PO SCH (08:02)
[2020-08-06] MEDS: Lisinopril 20 MG TAB PO SCH (08:05)
[2020-08-06] MEDS: Docusate 100 MG CAP PO SCH ×2 (08:05→20:20)
[2020-08-06] MEDS: Polyethylene Glycol 3350 17 GM Packet PO SCH (08:06)
[2020-08-06] MEDS: Ezetimibe 10 MG TAB PO SCH (20:20)
[2020-08-06] MEDS: Rosuvastatin 20 MG TAB PO SCH (20:20)
[2020-08-07] MEDS: Albuterol 200 PUFF (6.7GM INHALER) INH SCH ×7 (02:03→20:29)
[2020-08-07] MEDS: Mometasone 100 MCG/Formoterol 5 MCG 120 PUFF INHALER INH SCH ×2 (06:14→18:39)
--- NOTE | 2020-08-07 07:18 | PDOC.FM ---
- Subjective Subjective: Pt developed tachypnea and feels anxious about her condition gave hydroxyzine and ordered chest x-ray HFNC on 40 L 40% no acute overnight events - Objective MAR Reviewed: Yes Vital Signs & Weight: Vital Signs (12 hours) Temp Pulse Resp BP Pulse Ox 08/07/20 06:14 95 08/07/20 03:20 97.6 F 77 28 H 122/61 95 08/06/20 19:30 98 F 64 24 H 123/66 97 Weight Admit Weight 187.833 kg Weight 184.385 kg I&O: 08/06/20 08/07/20 08/08/20 06:59 06:59 06:59 Intake Total 800 Output Total 600 Balance 200 Result Diagrams: 08/06/20 04:47 08/06/20 04:47 Phys Exam - Physical Examination anxius appearing HEENT: moist MMs, sclera anicteric Neck: supple, full ROM Respiratory: no wheezing, no rales, no rhonchi, clear to auscultation bilateral Cardiovascular: RRR, no significant murmur, no rub Gastrointestinal: soft, no distention, positive bowel sounds Musculoskeletal: pulses present Neurological: non-focal, moves all 4 limbs Deviation from normal: anxious affect Skin: normal turgor, cap refill <2 seconds Dx/Plan (1) Acute respiratory failure with hypoxia Code(s): J96.01 - ACUTE RESPIRATORY FAILURE WITH HYPOXIA Status: Acute (2) Pneumonia due to COVID-19 virus Code(s): U07.1 - COVID-19; J12.82 - PNEUMONIA DUE TO CORONAVIRUS DISEASE 2019 Status: Acute - Plan Plan: Acute hypoxic respiratory failure 2/2 to COVID PNA - s/p decadron, albuterol, rocephin and azithro in ED-Procal 0.88 on admission - Chest Xray and CTA consistent with COVID PNA - D-dimer: 1.20, 3.92, 5.7, 5.64, 3.44, 2.43 - Lovenox for DVT ppx was (40 mg daily) up until 08/04. anti-Xa level 08/04 was <0.1 and lovenox was increased to 40 mg BID. will recheck today @ 1300 antiXa level. - will continue Decadron (6 mg PO daily- started 07/26/20) - remdesevir and convalescent plasma (07/28/20) - O2 requirement: HFNC 63/55%, decreased to 40 L and 4o% FIO2 will plan to wean to NC when appropriate. May need to go back up today on HFNC if tachypnea not treated with anti-anxiety meds. - Albuterol PRN, Dulera NYDIA, Mucinex, Tessalon, vitamin D - Procal 0.88-> 0.59. no further antibiotic therapy necessary - trend labs Q3 days as they are showing stability and improvement - ordered repeat CXR 08/07 in setting of worsening tachypnea. CHF - on lasix at home - BNP: 144 on admission - monitor fluid status DEANDRE - Cr: 1.79 -> 1.56 > 1.48 > 1.31 > 1.27(baseline ~ 1.15) - Improvement after mild fluids x 2 days, will hold on continuing fluids today d/t CHF - recheck bmp HTN - continue home medication DM - diet controlled - mild SSI and hypoglycemia protocol ordered Atypical chest pain with indeterminate troponins, resolved - Denies chest pain today, received lovenox, aspirin, and nitro in ED - EKG: T wave inversions in aVL, no ST changes - Troponin was trended-stable 0.066 -> 0.061 -> 0.063 - indeterminate trop likely 2/2 to COVID PNA, no longer having CP Hypokalemia, resolved - continue to monitor PCP: Jonnie Code: FULL IVF: SL Diet: HH and CC DVT ppx: 40 mg Lovenox bid Dispo: admitted to tele inpt, likely LOS > 48 hrs. Addendum - Attending - Attending Attestation Date/Time: 08/07/20 8615 I personally evaluated the patient and discussed the management with Dr. Ellis. I agree with the History, Examination, Assessment and Plan documented above with any addition or exceptions noted below.
[2020-08-07] MEDS: Enoxaparin Sodium 40 MG/0.4 ML SYRINGE SC SCH (09:19)
[2020-08-07] MEDS: Dexamethasone 4 MG TAB PO SCH (09:19)
[2020-08-07] MEDS: Metoprolol Tartrate 100 MG TAB PO SCH ×2 (09:20→20:29)
[2020-08-07] MEDS: Cholecalciferol (Vitamin D3) 400 UNITS TAB PO SCH (09:20)
[2020-08-07] MEDS: Amlodipine 10 MG TAB PO SCH (09:20)
[2020-08-07] MEDS: Lisinopril 20 MG TAB PO SCH (09:20)
[2020-08-07] MEDS: guaiFENesin ER 600 MG TAB PO SCH ×2 (09:21→20:26)
[2020-08-07] MEDS: Ascorbic Acid 500 mg Chewable Tablet PO SCH (09:21)
[2020-08-07] MEDS: Docusate 100 MG CAP PO SCH ×3 (09:21→20:25)
[2020-08-07] MEDS: hydrOXYzine 25 MG TAB PO PRN (09:21)
[2020-08-07] MEDS: Aspirin 81 mg Enteric Coated Tablet PO SCH (09:25)
[2020-08-07] MEDS: Polyethylene Glycol 3350 17 GM Packet PO SCH ×2 (09:25→10:09)
--- NOTE | 2020-08-07 11:22 | RAD ---
PORTABLE CHEST: HISTORY: Chest pain. Positive COVID. COMPARISON: A 07/26/2020 exam. FINDINGS: Heart size is enlarged. There are postop sternotomy changes. There is some worsening to the interst itial alveolar lung changes in the right upper lobe. The changes in the left lung and right lower lo be are stable. IMPRESSION: Worsening right upper lobe interstitial alveolar lung change. POS: [facility]
[2020-08-07] MEDS ORDERED: Azithromycin 500 MG in Sodium Chloride 0.9% 250 ML 250 ML IVPB SCH (15:15)
[2020-08-07] MEDS: cefTRIAXone\\ROCEPHIN 2 GM in Sodium Chloride 0.9% 100 ML IVPB SCH (16:34)
[2020-08-07 17:28] LABS: Band 5 % (5-11); Hemoglobin 11.5 g/dL (12.0-16.0); Lymphocytes 10 % (21-51); MDiff Complete? YES; Mean Corpuscular HGB CONC 32.7 g/dL (32.0-36.0); Mean Corpuscular Hemoglobin 29.1 pg (27.0-31.0); Mean Corpuscular Volume 88.9 fL (78.0-98.0); Mean Platelet Volume 10.3 fL (7.4-10.4); Monocytes 5 % (0-10); Neutrophil 79 % (42-75); Platelet Count 320 thou/uL (130-400); Platelet Morphology Comment Appears Adequate; RBC Distribution Width 13.3 % (11.5-14.5); RBC Morphology Normal; Reactive Lymphocytes 1 % (0-10); Red Blood Cell (RBC) Count 3.96 mill/uL (4.20-5.40); White Blood Cell (WBC) Count 12.9 thou/uL (4.8-10.8)
[2020-08-07] MEDS: Ezetimibe 10 MG TAB PO SCH (20:26)
[2020-08-07] MEDS: Rosuvastatin 20 MG TAB PO SCH (20:26)
[2020-08-07] MEDS: Enoxaparin Sodium 60 MG/0.6 ML SYRINGE SC SCH (20:27)
[2020-08-08] MEDS: Mometasone 100 MCG/Formoterol 5 MCG 120 PUFF INHALER INH SCH ×2 (05:33→18:06)
[2020-08-08] MEDS: Albuterol 200 PUFF (6.7GM INHALER) INH SCH ×5 (05:33→18:06)
[2020-08-08 06:04] LABS: Hemoglobin 11.1 g/dL (12.0-16.0); Mean Corpuscular HGB CONC 31.3 g/dL (32.0-36.0); Mean Corpuscular Hemoglobin 27.8 pg (27.0-31.0); Mean Corpuscular Volume 88.8 fL (78.0-98.0); Mean Platelet Volume 10.3 fL (7.4-10.4); Platelet Count 329 thou/uL (130-400); RBC Distribution Width 13.2 % (11.5-14.5); Red Blood Cell (RBC) Count 3.98 mill/uL (4.20-5.40); White Blood Cell (WBC) Count 11.8 thou/uL (4.8-10.8)
[2020-08-08 06:05] LABS: Band 4 % (5-11); Eosinophils 1 % (0-10); Lymphocytes 8 % (21-51); MDiff Complete? YES; Monocytes 6 % (0-10); Neutrophil 81 % (42-75)
--- NOTE | 2020-08-08 07:21 | PDOC.FM ---
- Subjective Subjective: Pt RR 20-22 overnight, improved from yesterday after started on antibiotics. Pt states her cough is slightly worse tolerating 40L and 40 % FiO2 HFNC. - Objective MAR Reviewed: Yes Vital Signs & Weight: Vital Signs (12 hours) Temp Pulse Resp BP Pulse Ox 08/08/20 03:00 98.1 F 82 24 H 137/67 93 L Weight Admit Weight 187.833 kg Weight 184.385 kg I&O: 08/07/20 08/08/20 08/09/20 06:59 06:59 06:59 Intake Total 900 Output Total 900 Balance 0 Result Diagrams: 08/08/20 04:25 08/06/20 04:47 Phys Exam - Physical Examination Constitutional: NAD HFNC on and in place. HEENT: moist MMs, sclera anicteric Neck: supple Respiratory: no wheezing, no rales, no rhonchi, clear to auscultation bilateral Cardiovascular: RRR, no significant murmur Gastrointestinal: soft, non-tender, no distention, positive bowel sounds Musculoskeletal: pulses present Neurological: moves all 4 limbs Deviation from normal: tired affect Skin: normal turgor Dx/Plan (1) Acute respiratory failure with hypoxia Code(s): J96.01 - ACUTE RESPIRATORY FAILURE WITH HYPOXIA Status: Acute (2) Pneumonia due to COVID-19 virus Code(s): U07.1 - COVID-19; J12.82 - PNEUMONIA DUE TO CORONAVIRUS DISEASE 2019 Status: Acute (3) Pneumonia of right upper lobe due to infectious organism Code(s): J18.9 - PNEUMONIA, UNSPECIFIED ORGANISM Status: Acute - Plan Plan: Acute hypoxic respiratory failure 2/2 to COVID PNA - s/p decadron, albuterol, rocephin and azithro in ED-Procal 0.88 on admission - Chest Xray and CTA consistent with COVID PNA - D-dimer: 1.20, 3.92, 5.7, 5.64, 3.44, 2.43 - Lovenox for DVT ppx was (40 mg daily) up until 08/04. anti-Xa level 08/04 was <0.1 and lovenox was increased to 40 mg BID. AntiXa level not at goat for ppx, so increased to 50 mg BID lovenox on 08/07. - will continue Decadron (6 mg PO daily- started 07/26/20) - S/P remdesevir and convalescent plasma (07/28/20) - O2 requirement: HFNC 63/55%, decreased to 40 L and 40% FIO2 will plan to wean to NC when appropriate. May need to go back up today on HFNC if tachypnea not treated with anti-anxiety meds. - Albuterol PRN, Dulera NYDIA, Mucinex, Tessalon, vitamin D - Procal 0.88-> 0.59-> 0.16-> 0.13 - ordered repeat CXR 08/07 in setting of worsening tachypnea. Showed worsening RUL infiltrate Suspected overlying RUL bacterial pneumonia - started on rocephin and azithro on 08/07 - Procal did not increase, but WBC was 12.9 - Pt had worsening tachypnea which prompted repeat CRX showing increasing RUL infiltrates. CHF - on lasix at home - BNP: 144 on admission - monitor fluid status DEANDRE - Cr: 1.79 -> 1.56 > 1.48 > 1.31 > 1.27(baseline ~ 1.15) - Improvement after mild fluids x 2 days, will hold on continuing fluids today d/t CHF - recheck bmp HTN - continue home medication DM - diet controlled - mild SSI and hypoglycemia protocol ordered Atypical chest pain with indeterminate troponins, resolved - Denies chest pain today, received lovenox, aspirin, and nitro in ED - EKG: T wave inversions in aVL, no ST changes - Troponin was trended-stable 0.066 -> 0.061 -> 0.063 - indeterminate trop likely 2/2 to COVID PNA, no longer having CP Hypokalemia, resolved - continue to monitor PCP: Jonnie Code: FULL IVF: SL Diet: HH and CC DVT ppx: 50 mg Lovenox bid Dispo: admitted to tele inpt, likely LOS > 48 hrs. Addendum - Attending - Attending Attestation Date/Time: 08/09/20 2920 I personally evaluated the patient and discussed the management with Dr. Ellis yesterday. I agree with the History, Examination, Assessment and Plan documented above with any addition or exceptions noted below.
[2020-08-08] MEDS: Aspirin 81 mg Enteric Coated Tablet PO SCH (07:34)
[2020-08-08] MEDS: guaiFENesin ER 600 MG TAB PO SCH ×2 (07:34→21:15)
[2020-08-08] MEDS: Docusate 100 MG CAP PO SCH ×3 (07:34→22:36)
[2020-08-08] MEDS: Dexamethasone 4 MG TAB PO SCH (07:34)
[2020-08-08] MEDS: Cholecalciferol (Vitamin D3) 400 UNITS TAB PO SCH (07:34)
[2020-08-08] MEDS: Lisinopril 20 MG TAB PO SCH (07:34)
[2020-08-08] MEDS: Amlodipine 10 MG TAB PO SCH (07:35)
[2020-08-08] MEDS: Enoxaparin Sodium 60 MG/0.6 ML SYRINGE SC SCH ×2 (07:36→22:00)
[2020-08-08] MEDS: Metoprolol Tartrate 100 MG TAB PO SCH ×2 (07:36→21:16)
[2020-08-08] MEDS: Ascorbic Acid 500 mg Chewable Tablet PO SCH (07:36)
[2020-08-08] MEDS: Polyethylene Glycol 3350 17 GM Packet PO SCH ×2 (07:37→11:00)
[2020-08-08] MEDS: hydrOXYzine 25 MG TAB PO PRN (08:57)
[2020-08-08] MEDS: cefTRIAXone\\ROCEPHIN 2 GM in Sodium Chloride 0.9% 100 ML IVPB SCH (14:24)
[2020-08-08] MEDS: Azithromycin 250 MG in Sodium Chloride 0.9% 250 ML 250 ML IVPB SCH (16:49)
[2020-08-08] MEDS: Rosuvastatin 20 MG TAB PO SCH (21:21)
[2020-08-09] MEDS: Albuterol 200 PUFF (6.7GM INHALER) INH SCH ×7 (02:19→23:40)
[2020-08-09] MEDS: Ezetimibe 10 MG TAB PO SCH ×2 (02:20→20:06)
--- NOTE | 2020-08-09 06:29 | PDOC.FM ---
- Subjective Subjective: Patient very anxious on exam this morning. Stating she is dying. Breathing rapid shallow breaths. Encouraged patient to take deep breaths. She just received Atarax as per nursing. Satting well on 40L/40 HFNC - Objective MAR Reviewed: Yes Vital Signs & Weight: Vital Signs (12 hours) Temp Pulse Resp BP Pulse Ox 08/09/20 03:08 97.9 F 86 24 H 134/75 95 08/08/20 19:10 98.2 F 68 20 119/68 94 L Weight Admit Weight 187.833 kg Weight 184.385 kg I&O: 08/07/20 08/08/20 08/09/20 06:59 06:59 06:59 Intake Total 900 824 Output Total 900 1200 Balance 0 -376 Result Diagrams: 08/08/20 04:25 08/06/20 04:47 Phys Exam - Physical Examination very nervous, anxious on exam HEENT: moist MMs Neck: supple Respiratory: no wheezing mild crackles b/l on exam Cardiovascular: RRR, no significant murmur Gastrointestinal: soft, non-tender Musculoskeletal: no edema, pulses present Neurological: normal sensation, moves all 4 limbs Deviation from normal: axious Skin: normal turgor Dx/Plan - Plan Plan: Acute hypoxic respiratory failure 2/2 to COVID PNA - s/p decadron, albuterol, rocephin and azithro in ED-Procal 0.88 on admission - Chest Xray and CTA consistent with COVID PNA - D-dimer: 1.20, 3.92, 5.7, 5.64, 3.44, 2.43 - Lovenox for DVT ppx was (40 mg daily) up until 08/04. anti-Xa level 08/04 was <0.1 and lovenox was increased to 40 mg BID. AntiXa level not at goat for ppx, so increased to 50 mg BID lovenox on 08/07. - will continue Decadron (6 mg PO daily- started 07/26/20) - S/P remdesevir and convalescent plasma (07/28/20) - O2 requirement: HFNC 63/55%, decreased to 40 L and 40% FIO2 will plan to wean to NC when appropriate. May need to go back up today on HFNC if tachypnea not treated with anti-anxiety meds. - Albuterol PRN, Dulera NYDIA, Mucinex, Tessalon, vitamin D - Procal 0.88-> 0.59-> 0.16-> 0.13 - ordered repeat CXR 08/07 in setting of worsening tachypnea. Showed worsening RUL infiltrate Suspected overlying RUL bacterial pneumonia - started on rocephin and azithro on 08/07, continue - Procal did not increase, but WBC was 12.9 - Pt had worsening tachypnea which prompted repeat CRX showing increasing RUL infiltrates. Anxiety -patient has Atarax on -consider adding Lorazepam if Atarax does not help anxiety CHF - on lasix at home - BNP: 144 on admission - monitor fluid status DEANDRE - Cr: 1.79 -> 1.56 > 1.48 > 1.31 > 1.27(baseline ~ 1.15) - Improvement after mild fluids x 2 days, will hold on continuing fluids today d/t CHF - recheck bmp HTN - continue home medication DM - diet controlled - mild SSI and hypoglycemia protocol ordered Atypical chest pain with indeterminate troponins, resolved - Denies chest pain today, received lovenox, aspirin, and nitro in ED - EKG: T wave inversions in aVL, no ST changes - Troponin was trended-stable 0.066 -> 0.061 -> 0.063 - indeterminate trop likely 2/2 to COVID PNA, no longer having CP Hypokalemia, resolved - continue to monitor PCP: Jonnie Code: FULL IVF: SL Diet: HH and CC DVT ppx: 50 mg Lovenox bid, anti Xa level pending today at 1300. may have to increase Dispo: admitted to tele inpt, likely LOS > 48 hrs. Discharge pending ability to weane off HNC and maintain sats on O2. CM consulted for dispo planning Addendum - Attending - Attending Attestation Date/Time: 08/09/20 133 I personally evaluated the patient and discussed the management with Dr. Natarajan. I agree with the History, Examination, Assessment and Plan documented above with any addition or exceptions noted below. I examined the patient [address] Natarajan. She had received hydroxyzine 20 minutes prior and had calmed considerably. O2 sats 90-2%. Continue to wean o2 as able.
[2020-08-09] MEDS: hydrOXYzine 25 MG TAB PO PRN (07:01)
[2020-08-09] MEDS: Mometasone 100 MCG/Formoterol 5 MCG 120 PUFF INHALER INH SCH ×2 (07:43→18:26)
[2020-08-09] MEDS: Cholecalciferol (Vitamin D3) 400 UNITS TAB PO SCH (08:57)
[2020-08-09] MEDS: guaiFENesin ER 600 MG TAB PO SCH ×2 (08:58→20:05)
[2020-08-09] MEDS: Amlodipine 10 MG TAB PO SCH (08:58)
[2020-08-09] MEDS: Ascorbic Acid 500 mg Chewable Tablet PO SCH (08:58)
[2020-08-09] MEDS: Aspirin 81 mg Enteric Coated Tablet PO SCH (08:59)
[2020-08-09] MEDS: Lisinopril 20 MG TAB PO SCH ×2 (08:59→09:50)
[2020-08-09] MEDS: Dexamethasone 4 MG TAB PO SCH (08:59)
[2020-08-09] MEDS: Enoxaparin Sodium 60 MG/0.6 ML SYRINGE SC SCH ×2 (08:59→20:07)
[2020-08-09] MEDS: Metoprolol Tartrate 100 MG TAB PO SCH ×2 (08:59→20:06)
[2020-08-09] MEDS: Polyethylene Glycol 3350 17 GM Packet PO SCH (09:21)
[2020-08-09] MEDS: Docusate 100 MG CAP PO SCH ×2 (09:21→20:06)
--- NOTE | 2020-08-09 14:49 | EKG ---
Test Reason : Blood Pressure : / mmHG Vent. Rate : 092 BPM Atrial Rate : 092 BPM P-R Int : 158 ms QRS Dur : 098 ms QT Int : 358 ms P-R-T Axes : 032 -18 080 degrees QTc Int : 442 ms Sinus rhythm with Premature atrial complexes Possible Left atrial enlargement Left ventricular hypertrophy with repolarization abnormality Abnormal ECG T wave inversion aVL Confirmed by RILEY BARAJAS M.D. ([id number]), editor managing director BRINDA DAVEY ([id number]) on 08/09/2020 2:48:53 PM Referred By: Confirmed By:RILEY BARAJAS M.D.
[2020-08-09] MEDS: cefTRIAXone\\ROCEPHIN 2 GM in Sodium Chloride 0.9% 100 ML IVPB SCH (15:33)
[2020-08-09] MEDS: Azithromycin 250 MG in Sodium Chloride 0.9% 250 ML 250 ML IVPB SCH (18:26)
[2020-08-09] MEDS: Rosuvastatin 20 MG TAB PO SCH (20:06)
[2020-08-10] MEDS: Albuterol 200 PUFF (6.7GM INHALER) INH SCH ×6 (02:54→21:33)
[2020-08-10] MEDS: Mometasone 100 MCG/Formoterol 5 MCG 120 PUFF INHALER INH SCH ×2 (06:02→18:22)
--- NOTE | 2020-08-10 06:15 | PDOC.FM ---
- Subjective Subjective: Patient resting comfortably in bed this AM on HFNC 45/45%. States she is doing much better than yesterday. She states yesterday she let stuff going on at home stress her out and make her anxious but decided today to not let it bother her. Still has a cough, but breathing is improved. - Objective MAR Reviewed: Yes Vital Signs & Weight: Vital Signs (12 hours) Temp Pulse Resp BP Pulse Ox 08/10/20 04:15 98.1 F 64 14 119/59 L 94 L 08/09/20 19:10 97.7 F 79 32 H 115/67 98 Weight Admit Weight 187.833 kg Weight 184.385 kg I&O: 08/08/20 08/09/20 08/10/20 06:59 06:59 06:59 Intake Total 900 824 Output Total 900 1200 800 Balance 0 -376 -800 Result Diagrams: 08/10/20 09:12 08/10/20 09:12 Phys Exam - Physical Examination Constitutional: NAD on HFNC HEENT: moist MMs Neck: supple mild diffuse wheezing b/l on exam Cardiovascular: RRR, no significant murmur Gastrointestinal: soft, non-tender, positive bowel sounds Musculoskeletal: no edema, pulses present Neurological: normal sensation, moves all 4 limbs Psychiatric: normal affect, A&O x 3 Skin: normal turgor Dx/Plan - Plan Plan: Acute hypoxic respiratory failure 2/2 to COVID PNA - s/p decadron, albuterol, rocephin and azithro in ED-Procal 0.88 on admission - Chest Xray and CTA consistent with COVID PNA - D-dimer: 1.20, 3.92, 5.7, 5.64, 3.44, 2.43 - Lovenox for DVT ppx was (40 mg daily) up until 08/04. anti-Xa level 08/04 was <0 .1 and lovenox was increased to 40 mg BID. AntiXa level not at goat for ppx, so increased to 50 mg BID lovenox on 08/07. - will continue Decadron (6 mg PO daily- started 07/26/20) - S/p remdesevir and convalescent plasma (07/28/20) - O2 requirement: HFNC 63/55%, decreased to 40 L and 40% FIO2 will plan to wean to NC when appropriate. - Albuterol PRN, Dulera NYDIA, Mucinex, Tessalon, vitamin D - Procal 0.88-> 0.59-> 0.16-> 0.13 - ordered repeat CXR 08/07 in setting of worsening tachypnea. Showed worsening RUL infiltrate Suspected overlying RUL bacterial pneumonia - started on rocephin and azithro on 08/07, continue - Procal did not increase, but WBC was 12.9 - Pt had worsening tachypnea which prompted repeat CRX showing increasing RUL infiltrates. Anxiety -patient has Atarax on -consider adding Lorazepam if Atarax does not help anxiety CHF - on lasix at home - BNP: 144 on admission - monitor fluid status DEANDRE - Cr: 1.79 -> 1.56 > 1.48 > 1.31 > 1.27(baseline ~ 1.15) - Improvement after mild fluids x 2 days, will hold on continuing fluids today d/t CHF - recheck bmp HTN - continue home medication DM - diet controlled - mild SSI and hypoglycemia protocol ordered Atypical chest pain with indeterminate troponins, resolved - Denies chest pain today, received lovenox, aspirin, and nitro in ED - EKG: T wave inversions in aVL, no ST changes - Troponin was trended-stable 0.066 -> 0.061 -> 0.063 - indeterminate trop likely 2/2 to COVID PNA, no longer having CP Hypokalemia, resolved - continue to monitor PCP: Jonnie Code: FULL IVF: SL Diet: HH and CC DVT ppx: 50 mg Lovenox bid Dispo: admitted to tele inpt, likely LOS > 48 hrs. Discharge pending ability to weane off HNC and maintain sats on O2. CM consulted for dispo planning Addendum - Attending - Attending Attestation Date/Time: 08/10/20 3612 I personally evaluated the patient and discussed the management with Dr. Natarajan. I agree with the History, Examination, Assessment and Plan documented above with any addition or exceptions noted below. Patient's anxiety is much better today. She remains on high flow. Will titrate as tolerated.
[2020-08-10] MEDS: guaiFENesin ER 600 MG TAB PO SCH ×2 (08:05→21:09)
[2020-08-10] MEDS: Docusate 100 MG CAP PO SCH ×2 (08:05→21:29)
[2020-08-10] MEDS: Ascorbic Acid 500 mg Chewable Tablet PO SCH (08:05)
[2020-08-10] MEDS: Aspirin 81 mg Enteric Coated Tablet PO SCH (08:05)
[2020-08-10] MEDS: Cholecalciferol (Vitamin D3) 400 UNITS TAB PO SCH (08:05)
[2020-08-10] MEDS: Lisinopril 20 MG TAB PO SCH (08:06)
[2020-08-10] MEDS: Metoprolol Tartrate 100 MG TAB PO SCH ×2 (08:06→22:15)
[2020-08-10] MEDS: Amlodipine 10 MG TAB PO SCH (08:06)
[2020-08-10] MEDS: Enoxaparin Sodium 60 MG/0.6 ML SYRINGE SC SCH ×2 (08:07→21:14)
[2020-08-10] MEDS: Polyethylene Glycol 3350 17 GM Packet PO SCH (08:10)
[2020-08-10] MEDS: Dexamethasone 4 MG TAB PO SCH (08:10)
[2020-08-10 09:20] LABS: #Eosinphils 0.2 thou/uL (0.0-0.7); #Lymphocytes 1.6 thou/uL (1.20-3.40); #Monocytes 0.8 thou/uL (0.11-0.59); #Neutrophils 12.5 thou/uL (1.40-6.50); %Eosinophils 1.6 % (0.0-10.0); %Lymphocytes 10.4 % (21.0-51.0); %Monocytes 5.3 % (0.0-10.0); %Neutrophils 82.7 % (42.0-75.0); Hemoglobin 11.1 g/dL (12.0-16.0); Mean Corpuscular HGB CONC 33.1 g/dL (32.0-36.0); Mean Corpuscular Hemoglobin 29.3 pg (27.0-31.0); Mean Corpuscular Volume 88.6 fL (78.0-98.0); Mean Platelet Volume 9.2 fL (7.4-10.4); Platelet Count 341 thou/uL (130-400); RBC Distribution Width 13.2 % (11.5-14.5); White Blood Cell (WBC) Count 15.1 thou/uL (4.8-10.8)
[2020-08-10 09:40] LABS: ALT (SGPT) 12 U/L (8-55); AST (SGOT) 14 U/L (5-34); Albumin 2.6 g/dL (3.4-4.8); Alkaline Phosphatase 77 U/L (40-110); Anion Gap 14 mmol/L (10-20); BUN (Urea Nitrogen) 45 mg/dL (9.8-20.1); Bilirubin, Total 0.8 mg/dL (0.2-1.2); Calc. Creatinine Clearance 105 mL/min (70-130); Calcium 8.1 mg/dL (7.8-10.44); Carbon Dioxide 20 mmol/L (23-31); Chloride 108 mmol/L (98-107); Globulin 4.4 g/dL (2.4-3.5); Glucose 80 mg/dL (83-110); Potassium 4.3 mmol/L (3.5-5.1); Sodium 138 mmol/L (136-145)
[2020-08-10] MEDS: cefTRIAXone\\ROCEPHIN 2 GM in Sodium Chloride 0.9% 100 ML IVPB SCH (15:34)
[2020-08-10] MEDS: Azithromycin 250 MG in Sodium Chloride 0.9% 250 ML 250 ML IVPB SCH (16:27)
[2020-08-10] MEDS: hydrOXYzine 25 MG TAB PO PRN (18:55)
[2020-08-10] MEDS: Rosuvastatin 20 MG TAB PO SCH (21:11)
[2020-08-10] MEDS: Ezetimibe 10 MG TAB PO SCH (22:02)
[2020-08-11] MEDS: hydrOXYzine 25 MG TAB PO PRN (03:35)
[2020-08-11] MEDS: Albuterol 200 PUFF (6.7GM INHALER) INH SCH ×6 (05:05→22:19)
[2020-08-11] MEDS: Mometasone 100 MCG/Formoterol 5 MCG 120 PUFF INHALER INH SCH ×2 (05:59→18:36)
--- NOTE | 2020-08-11 06:18 | PDOC.FM ---
- Subjective Subjective: Patient resting comfortably in bed this AM. States she has no complaints. Yesterday, she requested that respiratory therapy not weane her HFNC but that "she would try today". Patient is willing to weane today, satting well on current settings HFNC 45L/45% - Objective MAR Reviewed: Yes Vital Signs & Weight: Vital Signs (12 hours) Temp Pulse Resp BP Pulse Ox 08/11/20 03:15 98.0 F 76 28 H 104/59 L 94 L 08/10/20 20:00 98.2 F 71 24 H 118/60 97 Weight Admit Weight 187.833 kg Weight 184.385 kg I&O: 08/09/20 08/10/20 08/11/20 06:59 06:59 06:59 Intake Total 824 1000 Output Total 1200 800 650 Balance -376 -800 350 Result Diagrams: 08/10/20 09:12 08/10/20 09:12 Phys Exam - Physical Examination Constitutional: NAD HFNC HEENT: moist MMs Neck: supple Respiratory: no wheezing Cardiovascular: RRR, no significant murmur Gastrointestinal: soft, non-tender Musculoskeletal: no edema, pulses present Psychiatric: normal affect, A&O x 3 Dx/Plan - Plan Plan: Acute hypoxic respiratory failure 2/2 to COVID PNA - s/p decadron, albuterol, rocephin and azithro in ED-Procal 0.88 on admission - Chest Xray and CTA consistent with COVID PNA - D-dimer: 1.20, 3.92, 5.7, 5.64, 3.44, 2.43 - Lovenox for DVT ppx was (40 mg daily) up until 08/04. anti-Xa level 08/04 was <0.1 and lovenox was increased to 40 mg BID. AntiXa level not at goat for ppx, so increased to 50 mg BID lovenox on 08/07. - will continue Decadron (6 mg PO daily- started 07/26/20) - S/p remdesevir and convalescent plasma (07/28/20) - O2 requirement: HFNC 63/55%, decreased to 40 L and 40% FIO2 will plan to wean to NC when appropriate. - Albuterol PRN, Dulera NYDIA, Mucinex, Tessalon, vitamin D - Procal 0.88-> 0.59-> 0.16-> 0.13 - ordered repeat CXR 08/07 in setting of worsening tachypnea. Showed worsening RUL infiltrate Suspected overlying RUL bacterial pneumonia - started on rocephin and azithro on 08/07, continue - Procal did not increase, but WBC was 12.9 - Pt had worsening tachypnea which prompted repeat CRX showing increasing RUL infiltrates. Anxiety -patient has Atarax on -consider adding Lorazepam if Atarax does not help anxiety CHF - on lasix at home - BNP: 144 on admission - monitor fluid status DEADNRE - Cr: 1.79 -> 1.56 > 1.48 > 1.31 > 1.27(baseline ~ 1.15) - Improvement after mild fluids x 2 days, will hold on continuing fluids today d/t CHF - recheck bmp HTN - continue home medication DM - diet controlled - mild SSI and hypoglycemia protocol ordered Atypical chest pain with indeterminate troponins, resolved - Denies chest pain today, received lovenox, aspirin, and nitro in ED - EKG: T wave inversions in aVL, no ST changes - Troponin was trended-stable 0.066 -> 0.061 -> 0.063 - indeterminate trop likely 2/2 to COVID PNA, no longer having CP Hypokalemia, resolved - continue to monitor PCP: Jonnie Code: FULL IVF: SL Diet: HH and CC DVT ppx: 50 mg Lovenox bid Dispo: admitted to tele inpt, likely LOS > 48 hrs. Discharge pending ability to weane off HNC and maintain sats on O2. CM consulted for dispo planning Addendum - Attending - Attending Attestation Date/Time: 08/11/20 1005 I personally evaluated the patient and discussed the management with Dr. Natarajan. I agree with the History, Examination, Assessment and Plan documented above with any addition or exceptions noted below. The patient continues to have anxiety but pt is stable on high flow. Will att empt to wean today.
[2020-08-11] MEDS: Lisinopril 20 MG TAB PO SCH ×2 (09:39→09:42)
[2020-08-11] MEDS: Aspirin 81 mg Enteric Coated Tablet PO SCH (09:39)
[2020-08-11] MEDS: Enoxaparin Sodium 60 MG/0.6 ML SYRINGE SC SCH ×2 (09:39→20:16)
[2020-08-11] MEDS: Dexamethasone 4 MG TAB PO SCH (09:39)
[2020-08-11] MEDS: Polyethylene Glycol 3350 17 GM Packet PO SCH ×2 (09:39)
[2020-08-11] MEDS: Docusate 100 MG CAP PO SCH ×3 (09:39→20:16)
[2020-08-11] MEDS: Amlodipine 10 MG TAB PO SCH (09:40)
[2020-08-11] MEDS: guaiFENesin ER 600 MG TAB PO SCH ×2 (09:40→20:16)
[2020-08-11] MEDS: Cholecalciferol (Vitamin D3) 400 UNITS TAB PO SCH (09:40)
[2020-08-11] MEDS: Ascorbic Acid 500 mg Chewable Tablet PO SCH (09:41)
[2020-08-11] MEDS: Metoprolol Tartrate 100 MG TAB PO SCH ×2 (09:43→20:17)
[2020-08-11] MEDS ORDERED: hydrOXYzine 25 MG TAB PO PRN ×2 (10:30)
[2020-08-11] MEDS: cefTRIAXone\\ROCEPHIN 2 GM in Sodium Chloride 0.9% 100 ML IVPB SCH (15:11)
[2020-08-11] MEDS: Azithromycin 250 MG in Sodium Chloride 0.9% 250 ML 250 ML IVPB SCH (16:05)
[2020-08-11] MEDS: Rosuvastatin 20 MG TAB PO SCH (20:15)
[2020-08-11] MEDS: Ezetimibe 10 MG TAB PO SCH (20:16)
[2020-08-12] MEDS: Albuterol 200 PUFF (6.7GM INHALER) INH SCH ×6 (02:52→23:12)
[2020-08-12] MEDS: Mometasone 100 MCG/Formoterol 5 MCG 120 PUFF INHALER INH SCH ×2 (05:52→18:16)
[2020-08-12] MEDS: Metoprolol Tartrate 100 MG TAB PO SCH ×2 (07:48→19:57)
[2020-08-12] MEDS: Cholecalciferol (Vitamin D3) 400 UNITS TAB PO SCH (07:49)
[2020-08-12] MEDS: guaiFENesin ER 600 MG TAB PO SCH ×2 (07:49→19:58)
[2020-08-12] MEDS: Aspirin 81 mg Enteric Coated Tablet PO SCH (07:50)
[2020-08-12] MEDS: Lisinopril 20 MG TAB PO SCH ×2 (07:50→08:07)
[2020-08-12] MEDS: Ascorbic Acid 500 mg Chewable Tablet PO SCH (07:50)
[2020-08-12] MEDS: Dexamethasone 4 MG TAB PO SCH (07:50)
[2020-08-12] MEDS: Amlodipine 10 MG TAB PO SCH (07:51)
[2020-08-12] MEDS: Docusate 100 MG CAP PO SCH ×2 (07:51→23:52)
[2020-08-12] MEDS: Enoxaparin Sodium 60 MG/0.6 ML SYRINGE SC SCH ×2 (07:51→19:56)
[2020-08-12] MEDS: Polyethylene Glycol 3350 17 GM Packet PO SCH (07:51)
--- NOTE | 2020-08-12 08:34 | PDOC.FM ---
- Subjective Subjective: Patient resting in bed this morning on increased HFNC 50L/50%. She had an episode yesterday with increased anxiety where she was desatting and requiring higher settings. She states she is anxious and wants to go home. Discussed with patient that we need to weane her off of HFNC and to NC in order for her to go rehab to get stronger before going home. - Objective MAR Reviewed: Yes Vital Signs & Weight: Vital Signs (12 hours) Temp Pulse Resp BP Pulse Ox 08/12/20 07:51 73 08/12/20 03:25 97.4 F L 73 36 H 126/63 97 08/11/20 23:35 16 98 Weight Admit Weight 187.833 kg Weight 184.385 kg I&O: 08/11/20 08/12/20 08/13/20 06:59 06:59 06:59 Intake Total 1000 325 Output Total 650 650 Balance 350 -325 Result Diagrams: 08/10/20 09:12 08/10/20 09:12 Phys Exam - Physical Examination anxious HEENT: moist MMs Neck: supple Respiratory: no wheezing, clear to auscultation bilateral HFNC Cardiovascular: RRR, no significant murmur Gastrointestinal: soft, non-tender Musculoskeletal: no edema, pulses present Neurological: normal sensation, moves all 4 limbs Psychiatric: A&O x 3 Deviation from normal: anxious appearing Deviation from normal: dry skin Dx/Plan - Plan Plan: Acute hypoxic respiratory failure 2/2 to COVID PNA - s/p decadron, albuterol, rocephin and azithro in ED-Procal 0.88 on admission - Chest Xray and CTA consistent with COVID PNA - D-dimer: 1.20, 3.92, 5.7, 5.64, 3.44, 2.43 - Lovenox for DVT ppx was (40 mg daily) up until 08/04. anti-Xa level 08/04 was <0.1 and lovenox was increased to 40 mg BID. AntiXa level not at goat for ppx, so increased to 50 mg BID lovenox on 08/07. - will continue Decadron (6 mg PO daily- started 07/26/20) - S/p remdesevir and convalescent plasma (07/28/20) - O2 requirement: on HFNC, will plan to wean to NC when appropriate. - Albuterol PRN, Dulera NYDIA, Mucinex, Tessalon, vitamin D - Procal 0.88-> 0.59-> 0.16-> 0.13 - ordered repeat CXR 08/07 in setting of worsening tachypnea. Showed worsening RUL infiltrate -repeat CXR today Suspected overlying RUL bacterial pneumonia - started on rocephin and azithro on 08/07, Azithro stopped 08/11, will continue rocephin until better clinically - Procal did not increase, but WBC was 12.9 - Pt had worsening tachypnea which prompted repeat CRX showing increasing RUL infiltrates. Anxiety -patient has Atarax on -consider adding Lorazepam if Atarax does not help anxiety CHF - on lasix at home - BNP: 144 on admission - monitor fluid status DEANDRE - Cr: 1.79 -> 1.56 > 1.48 > 1.31 > 1.27(baseline ~ 1.15) - Improvement after mild fluids x 2 days, will hold on continuing fluids today d/t CHF - recheck bmp HTN - continue home medication DM - diet controlled - mild SSI and hypoglycemia protocol ordered Atypical chest pain with indeterminate troponins, resolved - Denies chest pain today, received lovenox, aspirin, and nitro in ED - EKG: T wave inversions in aVL, no ST changes - Troponin was trended-stable 0.066 -> 0.061 -> 0.063 - indeterminate trop likely 2/2 to COVID PNA, no longer having CP Hypokalemia, resolved - continue to monitor PCP: Jonnie Code: FULL IVF: SL Diet: HH and CC DVT ppx: 50 mg Lovenox bid Dispo: admitted to tele inpt, likely LOS > 48 hrs. Discharge pending ability to weane off HNC and maintain sats on O2. PT consulted. CM consulted for dispo planning Addendum - Attending - Attending Attestation Date/Time: 08/12/20 4399 I personally evaluated the patient and discussed the management with . I agree with the History, Examination, Assessment and Plan documented above with any addition or exceptions noted below. I believe a component of anxiety as well. On my evaluation she appears comfortable, mildly tachypneic with sats >96%
--- NOTE | 2020-08-12 11:34 | RAD ---
XR Chest 1 View Portable History: Worsening respiratory status Comparison: Radiograph August 07, 2020 Findings: Extensive perihilar and peripheral airspace opacities are similar. No pneumothorax or pneum omediastinum. No acute osseous abnormality. Cardiac silhouette is similar and obscured. Impression: Similar extensive airspace consolidation. No pneumothorax or pneumomediastinum.
[2020-08-12] MEDS ORDERED: Lorazepam 2 MG/ML VIAL SLOW IVP PRN (12:05)
[2020-08-12] MEDS: cefTRIAXone\\ROCEPHIN 2 GM in Sodium Chloride 0.9% 100 ML IVPB SCH (17:32)
[2020-08-12] MEDS: Rosuvastatin 20 MG TAB PO SCH (19:57)
[2020-08-12] MEDS: Ezetimibe 10 MG TAB PO SCH (19:59)
[2020-08-13] MEDS: Albuterol 200 PUFF (6.7GM INHALER) INH SCH ×6 (03:09→21:49)
--- NOTE | 2020-08-13 06:12 | PDOC.FM ---
- Subjective Subjective: Patient states she is "wonderful" this morning. She is on HFNC 40L/40%. She is willing to try to weane today - Objective MAR Reviewed: Yes Vital Signs & Weight: Vital Signs (12 hours) Temp Pulse Resp BP Pulse Ox 08/13/20 04:00 97.8 F 75 18 116/70 92 L 08/12/20 20:00 97.8 F 78 18 108/70 94 L Weight Admit Weight 187.833 kg Weight 184.385 kg I&O: 08/11/20 08/12/20 08/13/20 06:59 06:59 06:59 Intake Total 1000 325 Output Total 650 650 Balance 350 -325 Result Diagrams: 08/13/20 10:20 08/13/20 10:20 Phys Exam - Physical Examination Constitutional: NAD HEENT: moist MMs diffuse wheezing b/l Cardiovascular: RRR, no significant murmur Gastrointestinal: soft, non-tender, positive bowel sounds Musculoskeletal: no edema Neurological: non-focal, moves all 4 limbs Psychiatric: normal affect, A&O x 3 Dx/Plan - Plan Plan: Acute hypoxic respiratory failure 2/2 to COVID PNA - s/p decadron, albuterol, rocephin and azithro in ED-Procal 0.88 on admission - Chest Xray and CTA consistent with COVID PNA - D-dimer: 1.20, 3.92, 5.7, 5.64, 3.44, 2.43 - Lovenox for DVT ppx was (40 mg daily) up until 08/04. anti-Xa level 08/04 was <0.1 and lovenox was increased to 40 mg BID. AntiXa level not at goat for ppx, so increased to 50 mg BID lovenox on 08/07. - will continue Decadron (6 mg PO daily- started 07/26/20) - S/p remdesevir and convalescent plasma (07/28/20) - O2 requirement: on HFNC, will plan to wean to NC when appropriate. - Albuterol PRN, Dulera NYDIA, Mucinex, Tessalon, vitamin D - Procal 0.88-> 0.59-> 0.16-> 0.13 - ordered repeat CXR 08/07 in setting of worsening tachypnea. Showed worsening RUL infiltrate - CXR 1/19 showed no change Suspected overlying RUL bacterial pneumonia - started on rocephin and azithro on 08/07, Azithro stopped 08/11, will d/c Rocephin 08/13 as procal is negative and patient is improved clinically - Procal did not increase, but WBC was 12.9 - Pt had worsening tachypnea which prompted repeat CRX showing increasing RUL infiltrates to suggest overlying PNA Anxiety -patient has Atarax on PRN -Lorazepam PRN CHF - on lasix at home - BNP: 144 on admission - monitor fluid status DEANDRE - Cr: 1.79 -> 1.56 > 1.48 > 1.31 > 1.27(baseline ~ 1.15) - Improvement after mild fluids x 2 days, will hold on continuing fluids today d/t CHF - recheck bmp HTN - continue home medication DM - diet controlled - mild SSI and hypoglycemia protocol ordered Atypical chest pain with indeterminate troponins, resolved - Denies chest pain today, received lovenox, aspirin, and nitro in ED - EKG: T wave inversions in aVL, no ST changes - Troponin was trended-stable 0.066 -> 0.061 -> 0.063 - indeterminate trop likely 2/2 to COVID PNA, no longer having CP Hypokalemia, resolved - continue to monitor PCP: Jonnie Code: FULL IVF: SL Diet: HH and CC DVT ppx: 50 mg Lovenox bid Dispo: admitted to tele inpt, likely LOS > 48 hrs. Discharge pending ability to weane off HNC and maintain sats on O2. PT consulted. CM consulted for dispo planning Addendum - Attending - Attending Attestation Date/Time: 08/13/20 2233 I personally evaluated the patient and discussed the management with Dr. Natarajan. I agree with the History, Examination, Assessment and Plan documented above with any addition or exceptions noted below. +anxiety No n/v No cp +SOB Exam stable. Continue to wean. Wean steroids starting tomorrow.
[2020-08-13] MEDS: Mometasone 100 MCG/Formoterol 5 MCG 120 PUFF INHALER INH SCH ×2 (06:56→18:19)
[2020-08-13] MEDS: guaiFENesin ER 600 MG TAB PO SCH ×2 (07:51→20:09)
[2020-08-13] MEDS: Ascorbic Acid 500 mg Chewable Tablet PO SCH (07:51)
[2020-08-13] MEDS: Aspirin 81 mg Enteric Coated Tablet PO SCH (07:52)
[2020-08-13] MEDS: Dexamethasone 4 MG TAB PO SCH (07:53)
[2020-08-13] MEDS: Docusate 100 MG CAP PO SCH ×2 (07:53→21:49)
[2020-08-13] MEDS: Cholecalciferol (Vitamin D3) 400 UNITS TAB PO SCH (07:53)
[2020-08-13] MEDS: Metoprolol Tartrate 100 MG TAB PO SCH ×2 (07:54→20:10)
[2020-08-13] MEDS: Amlodipine 10 MG TAB PO SCH (07:54)
[2020-08-13] MEDS: Lisinopril 20 MG TAB PO SCH ×2 (07:54→08:28)
[2020-08-13] MEDS: Enoxaparin Sodium 60 MG/0.6 ML SYRINGE SC SCH ×2 (07:54→20:07)
[2020-08-13] MEDS: Polyethylene Glycol 3350 17 GM Packet PO SCH (08:28)
[2020-08-13 11:00] LABS: Band 2 % (5-11); Eosinophils 1 % (0-10); Hemoglobin 10.9 g/dL (12.0-16.0); Lymphocytes 6 % (21-51); MDiff Complete? YES; Mean Corpuscular HGB CONC 32.9 g/dL (32.0-36.0); Mean Corpuscular Hemoglobin 29.2 pg (27.0-31.0); Mean Corpuscular Volume 88.9 fL (78.0-98.0); Mean Platelet Volume 9.4 fL (7.4-10.4); Monocytes 4 % (0-10); Neutrophil 87 % (42-75); Platelet Count 291 thou/uL (130-400); Platelet Morphology Comment Appears Adequate; Polychromasia SLIGHT = 2-3 cells (100X) (0-2/hpf); RBC Distribution Width 13.4 % (11.5-14.5); Red Blood Cell (RBC) Count 3.72 mill/uL (4.20-5.40); White Blood Cell (WBC) Count 13.7 thou/uL (4.8-10.8)
[2020-08-13 11:09] LABS: ALT (SGPT) 14 U/L (8-55); AST (SGOT) 12 U/L (5-34); Albumin 2.6 g/dL (3.4-4.8); Alkaline Phosphatase 80 U/L (40-110); Anion Gap 12 mmol/L (10-20); BUN (Urea Nitrogen) 39 mg/dL (9.8-20.1); Bilirubin, Total 0.7 mg/dL (0.2-1.2); Calc. Creatinine Clearance 98 mL/min (70-130); Calcium 8.2 mg/dL (7.8-10.44); Carbon Dioxide 22 mmol/L (23-31); Chloride 109 mmol/L (98-107); Globulin 4.1 g/dL (2.4-3.5); Glucose 99 mg/dL (83-110); Potassium 4.4 mmol/L (3.5-5.1); Protein, Total 6.7 g/dL (6.0-8.3); Sodium 139 mmol/L (136-145)
[2020-08-13] MEDS: cefTRIAXone\\ROCEPHIN 2 GM in Sodium Chloride 0.9% 100 ML IVPB SCH (16:07)
[2020-08-13] MEDS: Rosuvastatin 20 MG TAB PO SCH (20:09)
[2020-08-13] MEDS: Ezetimibe 10 MG TAB PO SCH (20:09)
[2020-08-14] MEDS: Albuterol 200 PUFF (6.7GM INHALER) INH SCH ×6 (02:43→23:04)
--- NOTE | 2020-08-14 06:09 | PDOC.FM ---
- Subjective Subjective: Patient resting comfortably in bed. Prior to arrival in room patient was feeling SOB and the nurse attended to patient. Sats were in the low 80s, and the bag of fluid hooked up to the HFNC had been dried up. Patient was on 35L, 40%. Respiratory therapy was called, patient given inhaler and new fluid bag was hung. Patient in no acute distress during exam, but satting 84%. Denies SOB. Respiratory therapy on their way. Will follow up with respiratory therapy changes to [facility] and go from there. - Objective MAR Reviewed: Yes Vital Signs & Weight: Vital Signs (12 hours) Temp Pulse Resp BP Pulse Ox 08/13/20 20:15 98.3 F 83 20 132/71 93 L Weight Admit Weight 187.833 kg Weight 184.385 kg I&O: 08/12/20 08/13/20 08/14/20 06:59 06:59 06:59 Intake Total 325 Output Total 650 Balance -325 Result Diagrams: 08/13/20 10:20 08/13/20 10:20 Phys Exam - Physical Examination Constitutional: NAD HEENT: moist MMs Neck: supple diffuse wheezing on exam Cardiovascular: RRR, no significant murmur Gastrointestinal: soft, non-tender mild edema Neurological: normal sensation, moves all 4 limbs Psychiatric: normal affect, A&O x 3 Deviation from normal: skin is dry Dx/Plan - Plan Plan: Acute hypoxic respiratory failure 2/2 to COVID PNA - s/p decadron, albuterol, rocephin and azithro in ED-Procal 0.88 on admission - Chest Xray and CTA consistent with COVID PNA - D-dimer: 1.20, 3.92, 5.7, 5.64, 3.44, 2.43 - Lovenox for DVT ppx was (40 mg daily) up until 08/04. anti-Xa level 08/04 was <0.1 and lovenox was increased to 40 mg BID. AntiXa level not at goat for ppx, so increased to 50 mg BID lovenox on 08/07. - completed Decadron course (6 mg PO daily- started 07/26-08/13). continue decadron taper - S/p remdesevir and convalescent plasma (07/28/20) - O2 requirement: on HFNC, will plan to wean to NC when appropriate. - Albuterol PRN, Dulera NYDIA, Mucinex, Tessalon, vitamin D - Procal 0.88-> 0.59-> 0.16-> 0.13 - ordered repeat CXR 08/07 in setting of worsening tachypnea. Showed worsening RUL infiltrate - CXR 08/12 showed no change Suspected overlying RUL bacterial pneumonia - started on rocephin and azithro on 08/07, Azithro stopped 08/11, will d/c Rocephin 08/13 as procal is negative and patient is improved clinically - Procal did not increase, but WBC was 12.9 - Pt had worsening tachypnea which prompted repeat CRX showing increasing RUL infiltrates to suggest overlying PNA Anxiety -patient has Atarax on PRN -Lorazepam PRN CHF - on lasix at home - BNP: 144 on admission - monitor fluid status DEANDRE - Cr: 1.79 -> 1.56 > 1.48 > 1.31 > 1.27(baseline ~ 1.15) - Improvement after mild fluids x 2 days, will hold on continuing fluids today d/t CHF - recheck bmp HTN - continue home medication DM - diet controlled - mild SSI and hypoglycemia protocol ordered Atypical chest pain with indeterminate troponins, resolved - Denies chest pain today, received lovenox, aspirin, and nitro in ED - EKG: T wave inversions in aVL, no ST changes - Troponin was trended-stable 0.066 -> 0.061 -> 0.063 - indeterminate trop likely 2/2 to COVID PNA, no longer having CP Hypokalemia, resolved - continue to monitor PCP: Jonnie Code: FULL IVF: SL Diet: HH and CC DVT ppx: 50 mg Lovenox bid Dispo: admitted to tele inpt, likely LOS > 48 hrs. Discharge pending ability to weane off HNC and maintain sats on O2. PT consulted. CM consulted for dispo planning, patient approved with [facility] once able to go home Addendum - Attending - Attending Attestation Date/Time: 08/14/20 1140 I personally evaluated the patient and discussed the management with Dr. Natarajan. I agree with the History, Examination, Assessment and Plan documented above with any addition or exceptions noted below.
[2020-08-14] MEDS: Mometasone 100 MCG/Formoterol 5 MCG 120 PUFF INHALER INH SCH ×2 (06:31→17:36)
[2020-08-14] MEDS: guaiFENesin ER 600 MG TAB PO SCH ×2 (09:00→20:04)
[2020-08-14] MEDS ORDERED: Dexamethasone 4 MG TAB PO SCH (09:30)
[2020-08-14] MEDS: Enoxaparin Sodium 60 MG/0.6 ML SYRINGE SC SCH ×2 (10:44→20:06)
[2020-08-14] MEDS: Polyethylene Glycol 3350 17 GM Packet PO SCH (10:44)
[2020-08-14] MEDS: Cholecalciferol (Vitamin D3) 400 UNITS TAB PO SCH (10:45)
[2020-08-14] MEDS: Aspirin 81 mg Enteric Coated Tablet PO SCH (10:47)
[2020-08-14] MEDS: Docusate 100 MG CAP PO SCH ×2 (10:47→20:05)
[2020-08-14] MEDS: Ascorbic Acid 500 mg Chewable Tablet PO SCH (10:48)
[2020-08-14] MEDS: Amlodipine 10 MG TAB PO SCH (10:48)
[2020-08-14] MEDS: Lisinopril 20 MG TAB PO SCH (10:48)
[2020-08-14] MEDS: Metoprolol Tartrate 100 MG TAB PO SCH ×2 (10:48→20:06)
[2020-08-14] MEDS: Rosuvastatin 20 MG TAB PO SCH (20:05)
[2020-08-14] MEDS: Ezetimibe 10 MG TAB PO SCH (20:07)
[2020-08-15] MEDS: Albuterol 200 PUFF (6.7GM INHALER) INH SCH ×5 (04:20→18:39)
[2020-08-15] MEDS: Mometasone 100 MCG/Formoterol 5 MCG 120 PUFF INHALER INH SCH ×2 (06:48→18:40)
--- NOTE | 2020-08-15 07:03 | PDOC.FM ---
- Subjective Subjective: Patient resting comfortably in bed. Says she is "doing much better". No complaints. Remains on HFNC at 40L/50% - Objective MAR Reviewed: Yes Vital Signs & Weight: Vital Signs (12 hours) Temp Pulse Resp BP Pulse Ox 08/15/20 03:02 98.1 F 67 18 117/77 91 L 08/15/20 03:00 93 L 08/14/20 20:00 61 L 08/14/20 19:11 97.9 F 61 20 123/65 95 Weight Admit Weight 187.833 kg Weight 184.385 kg Result Diagrams: 08/13/20 10:20 08/13/20 10:20 Phys Exam - Physical Examination Constitutional: NAD HFNC HEENT: moist MMs Neck: supple Respiratory: no wheezing, clear to auscultation bilateral Cardiovascular: RRR, no significant murmur Gastrointestinal: soft, non-tender, positive bowel sounds Musculoskeletal: no edema, pulses present Neurological: moves all 4 limbs Psychiatric: normal affect, A&O x 3 Dx/Plan - Plan Plan: Acute hypoxic respiratory failure /2 to COVID PNA - s/p decadron, albuterol, rocephin and azithro in ED-Procal 0.88 on admission - Chest Xray and CTA consistent with COVID PNA - D-dimer: 1.20, 3.92, 5.7, 5.64, 3.44, 2.43 - Lovenox for DVT ppx was (40 mg daily) up until 08/04. anti-Xa level 08/04 was <0.1 and lovenox was increased to 40 mg BID. AntiXa level not at goat for ppx, so increased to 50 mg BID lovenox on 08/07. - completed Decadron course (6 mg PO daily- started 07/26-08/13). continue decadron taper - S/p remdesevir and convalescent plasma (07/28/20) - O2 requirement: on HFNC, will plan to wean to NC when appropriate. - Albuterol PRN, Dulera NYDIA, Mucinex, Tessalon, vitamin D - Procal 0.88-> 0.59-> 0.16-> 0.13 - ordered repeat CXR 08/07 in setting of worsening tachypnea. Showed worsening R UL infiltrate - CXR 08/12 showed no change Suspected overlying RUL bacterial pneumonia - started on rocephin and azithro on 08/07, Azithro stopped 08/11, will d/c Rocephin 08/13 as procal is negative and patient is improved clinically - Procal did not increase, but WBC was 12.9 - Pt had worsening tachypnea which prompted repeat CRX showing increasing RUL infiltrates to suggest overlying PNA Anxiety -patient has Atarax on PRN -Lorazepam PRN CHF - on lasix at home - BNP: 144 on admission - monitor fluid status DEANDRE - Cr: 1.79 -> 1.56 > 1.48 > 1.31 > 1.27(baseline ~ 1.15) - Improvement after mild fluids x 2 days, will hold on continuing fluids today d/t CHF - recheck bmp HTN - continue home medication DM - diet controlled - mild SSI and hypoglycemia protocol ordered Atypical chest pain with indeterminate troponins, resolved - Denies chest pain today, received lovenox, aspirin, and nitro in ED - EKG: T wave inversions in aVL, no ST changes - Troponin was trended-stable 0.066 -> 0.061 -> 0.063 - indeterminate trop likely 2/2 to COVID PNA, no longer having CP Hypokalemia, resolved - continue to monitor PCP: Jonnie Code: FULL IVF: SL Diet: HH and CC DVT ppx: 50 mg Lovenox bid Dispo: admitted to tele inpt, likely LOS > 48 hrs. Discharge pending ability to weane off HNC and maintain sats on O2. PT consulted. CM consulted for dispo planning, patient approved with [facility] once able to go home Addendum - Attending - Attending Attestation Date/Time: 08/15/20 1320 I personally evaluated the patient and discussed the management with Dr. Natarajan. I agree with the History, Examination, Assessment and Plan documented above with any addition or exceptions noted below. No cp. No fever/chills. No n/v.
[2020-08-15] MEDS ORDERED: Dexamethasone 4 MG TAB PO SCH (08:00)
[2020-08-15] MEDS: Polyethylene Glycol 3350 17 GM Packet PO SCH (09:10)
[2020-08-15] MEDS: Enoxaparin Sodium 60 MG/0.6 ML SYRINGE SC SCH ×2 (09:11→20:20)
[2020-08-15] MEDS: Ascorbic Acid 500 mg Chewable Tablet PO SCH (09:11)
[2020-08-15] MEDS: Docusate 100 MG CAP PO SCH ×2 (09:12→20:20)
[2020-08-15] MEDS: Aspirin 81 mg Enteric Coated Tablet PO SCH (09:12)
[2020-08-15] MEDS: Cholecalciferol (Vitamin D3) 400 UNITS TAB PO SCH (09:12)
[2020-08-15] MEDS: guaiFENesin ER 600 MG TAB PO SCH ×2 (09:13→20:18)
[2020-08-15] MEDS: Amlodipine 10 MG TAB PO SCH (09:13)
[2020-08-15] MEDS: Metoprolol Tartrate 100 MG TAB PO SCH ×2 (09:13→22:26)
[2020-08-15] MEDS: Lisinopril 20 MG TAB PO SCH (09:13)
--- NOTE | 2020-08-15 18:01 | PDOC.BPN ---
- Brief Progress Note Transition of Care Note Patient is a 70 yo F with PMH of anxiety, CHF, HTN, DM who presented with acute hypoxic respiratory failure 2/2 to COVID PNA and atypical chest pain with indeterminate troponins. Her EKG showed T wave inversions in aVL, no ST changes. Troponin was trended and was stable. Indeterminate trop likely 2/2 to COVID PNA and patient had no further episodes of chest pain. For her COVID patient was started on decadron, albuterol, rocephin and azithro in ED with a procal of 0.88 on admission. Chest Xray and CTA consistent with COVID PNA. Lovenox for DVT ppx was (40 mg daily) up until 08/04. anti-Xa level 08/04 was <0.1 and lovenox was increased to 40 mg BID. AntiXa level not at goal for ppx, so increased to 50 mg BID lovenox on 08/07. She received remdesevir and convalescent plasma (07/28). Patient getting albuterol PRN, Dulera NYDIA, Mucinex, Tessalon, vitamin D. During her stay, patient experienced worsened tachypnea and CXR showed RUL infiltrate with a white count so she was started on Rocephin and Azithro on 08/07, Azithro stopped 08/11, will d/c Rocephin 08/13 as procal is negative and patient is improved clinically. Discharge pending ability to weane off HNC and maintain sats on O2. PT consulted. CM consulted for dispo planning and patient approved with [facility] once able to go home when off HFNC.
[2020-08-15] MEDS: Rosuvastatin 20 MG TAB PO SCH (20:18)
[2020-08-15] MEDS: Ezetimibe 10 MG TAB PO SCH (20:19)
[2020-08-16] MEDS: Albuterol 200 PUFF (6.7GM INHALER) INH SCH ×6 (01:50→23:20)
--- NOTE | 2020-08-16 06:09 | PDOC.FM ---
- Subjective Subjective: Patient resting comfortably in bed. No complaints. Says SOB has improved since yesterday. Notes anxiety about being taken off HFNC but notes that she is ready to be done with it. Says family have been very supportive and have helped calm her anxiety. Remains on HFNC at 40L/55% - Objective MAR Reviewed: Yes Vital Signs & Weight: Vital Signs (12 hours) Temp Pulse Resp BP Pulse Ox 08/16/20 05:05 94 L 08/16/20 03:40 98.0 F 66 18 102/67 95 08/15/20 19:19 98.1 F 71 20 98/56 L 95 08/15/20 18:40 80 21 H 91 L Weight Admit Weight 187.833 kg Weight 184.385 kg I&O: 08/14/20 08/15/20 08/16/20 06:59 06:59 06:59 Intake Total 0 Balance 0 Result Diagrams: 08/16/20 09:36 08/13/20 10:20 Phys Exam - Physical Examination Constitutional: NAD HEENT: moist MMs, sclera anicteric Neck: full ROM Respiratory: no wheezing, clear to auscultation bilateral Sat 94% on HFNC Cardiovascular: RRR, no significant murmur Gastrointestinal: soft, non-tender, positive bowel sounds Musculoskeletal: no edema Neurological: moves all 4 limbs Psychiatric: normal affect, A&O x 3 Skin: no rash Dx/Plan - Plan Plan: Acute hypoxic respiratory failure 2/2 to COVID PNA - s/p decadron, albuterol, rocephin and azithro in ED-Procal 0.88 on admission - Chest Xray and CTA consistent with COVID PNA - D-dimer: 1.20, 3.92, 5.7, 5.64, 3.44, 2.43 - Lovenox for DVT ppx was (40 mg daily) up until 08/04. anti-Xa level 08/04 was <0.1 and lovenox was increased to 40 mg BID. AntiXa level not at goat for ppx, so increased to 50 mg BID lovenox on 08/07. - completed Decadron course (6 mg PO daily- started 07/26-08/13). continue decadron taper - S/p remdesevir and convalescent plasma (07/28/20) - O2 requirement: on HFNC, will plan to wean to NC when appropriate. - Albuterol PRN, Dulera NYDIA, Mucinex, Tessalon, vitamin D - Procal 0.88-> 0.59-> 0.16-> 0.13 - ordered repeat CXR 08/07 in setting of worsening tachypnea. Showed worsening RUL infiltrate - CXR 08/12 showed no change Suspected overlying RUL bacterial pneumonia - started on rocephin and azithro on 08/07, Azithro stopped 08/11, d/c Rocephin 08/13 as procal is negative and patient is improved clinically - Procal did not increase, but WBC was 12.9 - Pt had worsening tachypnea which prompted repeat CRX showing increasing RUL infiltrates to suggest overlying PNA Anxiety -patient has Atarax on PRN -Lorazepam PRN CHF - on lasix at home - BNP: 144 on admission - monitor fluid status DEANDRE, improved - Cr: 1.79 -> 1.56 > 1.48 > 1.31 > 1.27(baseline ~ 1.15) - Improvement after mild fluids x 2 days, will hold on continuing fluids d/t CHF HTN - continue home medication DM - diet controlled - mild SSI and hypoglycemia protocol ordered Atypical chest pain with indeterminate troponins, resolved - Denies chest pain today, received lovenox, aspirin, and nitro in ED - EKG: T wave inversions in aVL, no ST changes - Troponin was trended-stable 0.066 -> 0.061 -> 0.063 - indeterminate trop likely 2/2 to COVID PNA, no longer having CP Hypokalemia, resolved - continue to monitor PCP: Jonnie Code: FULL IVF: SL Diet: HH and CC DVT ppx: 50 mg Lovenox bid Dispo: admitted to tele inpt, likely LOS > 48 hrs. Discharge pending ability to weane off HNC and maintain sats on O2. PT consulted. CM consulted for dispo planning, patient approved with [facility] once able to go home Addendum - Attending - Attending Attestation Date/Time: 08/16/20 1020 I personally evaluated the patient and discussed the management with Dr. Farrell. I agree with the History, Examination, Assessment and Plan documented above with any addition or exceptions noted below. Will try longer acting BZD for anxiety and attempt to wean.
[2020-08-16] MEDS: Docusate 100 MG CAP PO SCH ×2 (09:36→20:21)
[2020-08-16] MEDS: guaiFENesin ER 600 MG TAB PO SCH ×2 (09:36→20:20)
[2020-08-16] MEDS: Ascorbic Acid 500 mg Chewable Tablet PO SCH (09:37)
[2020-08-16] MEDS: Cholecalciferol (Vitamin D3) 400 UNITS TAB PO SCH (09:37)
[2020-08-16] MEDS: Amlodipine 10 MG TAB PO SCH (09:37)
[2020-08-16] MEDS: Metoprolol Tartrate 100 MG TAB PO SCH ×2 (09:38→23:19)
[2020-08-16] MEDS: Aspirin 81 mg Enteric Coated Tablet PO SCH (09:38)
[2020-08-16] MEDS: Mometasone 100 MCG/Formoterol 5 MCG 120 PUFF INHALER INH SCH ×2 (09:38→18:07)
[2020-08-16] MEDS: Polyethylene Glycol 3350 17 GM Packet PO SCH (09:39)
[2020-08-16] MEDS: Lisinopril 20 MG TAB PO SCH (09:40)
[2020-08-16] MEDS: Enoxaparin Sodium 60 MG/0.6 ML SYRINGE SC SCH ×2 (09:41→20:23)
[2020-08-16 10:03] LABS: #Lymphocytes 1.2 thou/uL (1.20-3.40); #Monocytes 0.4 thou/uL (0.11-0.59); #Neutrophils 8.6 thou/uL (1.40-6.50); %Basophils 0.3 % (0.0-1.0); %Eosinophils 8.6 % (0.0-10.0); %Lymphocytes 10.9 % (21.0-51.0); %Monocytes 3.9 % (0.0-10.0); %Neutrophils 76.5 % (42.0-75.0); Hemoglobin 12.5 g/dL (12.0-16.0); Mean Corpuscular HGB CONC 31.6 g/dL (32.0-36.0); Mean Corpuscular Hemoglobin 28.4 pg (27.0-31.0); Mean Platelet Volume 9.8 fL (7.4-10.4); Platelet Count 213 thou/uL (130-400); RBC Distribution Width 13.8 % (11.5-14.5); Red Blood Cell (RBC) Count 4.39 mill/uL (4.20-5.40); White Blood Cell (WBC) Count 11.3 thou/uL (4.8-10.8)
[2020-08-16 11:54] LABS: ALT (SGPT) 17 U/L (8-55); AST (SGOT) 16 U/L (5-34); Albumin 2.8 g/dL (3.4-4.8); Alkaline Phosphatase 89 U/L (40-110); Anion Gap 16 mmol/L (10-20); BUN (Urea Nitrogen) 35 mg/dL (9.8-20.1); Bilirubin, Total 0.9 mg/dL (0.2-1.2); Calc. Creatinine Clearance 104 mL/min (70-130); Calcium 8.4 mg/dL (7.8-10.44); Carbon Dioxide 17 mmol/L (23-31); Chloride 108 mmol/L (98-107); Globulin 4.6 g/dL (2.4-3.5); Glucose 76 mg/dL (83-110); Potassium 4.1 mmol/L (3.5-5.1); Protein, Total 7.4 g/dL (5.8-8.1); Sodium 137 mmol/L (136-145)
[2020-08-16] MEDS: Dexamethasone 1 MG TAB PO SCH (12:28)
[2020-08-16] MEDS: Ezetimibe 10 MG TAB PO SCH (20:21)
[2020-08-16] MEDS: Rosuvastatin 20 MG TAB PO SCH (20:21)
[2020-08-16] MEDS: clonazePAM 0.5 MG TAB PO SCH (20:22)
[2020-08-17] MEDS: Albuterol 200 PUFF (6.7GM INHALER) INH SCH ×6 (03:00→19:09)
[2020-08-17] MEDS: Mometasone 100 MCG/Formoterol 5 MCG 120 PUFF INHALER INH SCH ×2 (05:41→19:10)
--- NOTE | 2020-08-17 06:06 | PDOC.FM ---
- Subjective Subjective: States anxiety improved with clonazepam last pm. will arrive at 10am today to be with her as RT attempts to wean HFNC. Experienced SOB with PT yesterday but not while resting. Denies headache, vision changes, chest pain, palpitations and edema. - Objective MAR Reviewed: Yes Vital Signs & Weight: Vital Signs (12 hours) Temp Pulse Resp BP Pulse Ox 08/17/20 03:45 97.7 F 80 16 110/82 96 08/17/20 02:01 97 08/16/20 20:00 98.0 F 73 22 H 95 08/16/20 19:27 98.3 F 64 24 H 110/56 L 97 08/16/20 18:07 74 22 H 94 L Weight Admit Weight 187.833 kg Weight 184.385 kg I&O: 08/15/20 08/16/20 08/17/20 06:59 06:59 06:59 Intake Total 0 Balance 0 Result Diagrams: 08/16/20 09:36 08/16/20 09:36 Phys Exam - Physical Examination Constitutional: NAD HEENT: moist MMs, sclera anicteric Neck: full ROM Respiratory: no wheezing, clear to auscultation bilateral On HFNC Cardiovascular: RRR, no significant murmur Gastrointestinal: soft, non-tender, positive bowel sounds Musculoskeletal: no edema Neurological: moves all 4 limbs Psychiatric: normal affect, A&O x 3 Skin: no rash Dx/Plan - Plan Plan: Acute hypoxic respiratory failure 2/2 to COVID PNA - s/p decadron, albuterol, rocephin and azithro in ED-Procal 0.88 on admission - Chest Xray and CTA consistent with COVID PNA - D-dimer: 1.20, 3.92, 5.7, 5.64, 3.44, 2.43 - Lovenox for DVT ppx was (40 mg daily) up until 08/04. anti-Xa level 08/04 was <0.1 and lovenox was increased to 40 mg BID. AntiXa level not at goat for ppx, so increased to 50 mg BID lovenox on 08/07. - completed Decadron course (6 mg PO daily- started 07/26-08/13). continue decadron taper - S/p remdesevir and convalescent plasma (07/28/20) - O2 requirement: on HFNC, will plan to wean to NC when appropriate. - Albuterol PRN, Dulera NYDIA, Mucinex, Tessalon, vitamin D - Procal 0.88-> 0.59-> 0.16-> 0.13 - ordered repeat CXR 08/07 in setting of worsening tachypnea. Showed worsening RUL infiltrate. CXR 08/12 showed no change Suspected overlying RUL bacterial pneumonia - started on rocephin and azithro on 08/07, Azithro stopped 08/11, d/c Rocephin 08/13 as procal is negative and patient is improved clinically - Procal did not increase, but WBC was 12.9 - Pt had worsening tachypnea which prompted repeat CRX showing increasing RUL infiltrates to suggest overlying PNA Anxiety -Clonazapam 0.25mg BID with improvement of symptoms CHF - on lasix at home - BNP: 144 on admission - monitor fluid status DEANDRE, improved - Cr: 1.79 -> 1.56 > 1.48 > 1.31 > 1.27(baseline ~ 1.15) - Improvement after mild fluids x 2 days, will hold on continuing fluids d/t CHF HTN - continue home medication DM - diet controlled - mild SSI and hypoglycemia protocol ordered Atypical chest pain with indeterminate troponins, resolved - Denies chest pain today, received lovenox, aspirin, and nitro in ED - EKG: T wave inversions in aVL, no ST changes - Troponin was trended-stable 0.066 -> 0.061 -> 0.063 - indeterminate trop likely 2/2 to COVID PNA, no longer having CP Hypokalemia, resolved - continue to monitor PCP: Jonnie Code: FULL IVF: SL Diet: HH and CC DVT ppx: 50 mg Lovenox bid Dispo: admitted to tele inpt. Discharge pending ability to weane off HNC and maintain sats on O2. PT consulted. CM consulted for dispo planning, patient approved with [facility] once able to go home Addendum - Attending - Attending Attestation Date/Time: 08/17/20 1031 I personally evaluated the patient and discussed the management with Dr. Farrell. I agree with the History, Examination, Assessment and Plan documented above with any addition or exceptions noted below.
[2020-08-17] MEDS: Aspirin 81 mg Enteric Coated Tablet PO SCH (09:28)
[2020-08-17] MEDS: Lisinopril 20 MG TAB PO SCH (09:28)
[2020-08-17] MEDS: Cholecalciferol (Vitamin D3) 400 UNITS TAB PO SCH (09:28)
[2020-08-17] MEDS: Metoprolol Tartrate 100 MG TAB PO SCH ×2 (09:28→20:53)
[2020-08-17] MEDS: Amlodipine 10 MG TAB PO SCH (09:29)
[2020-08-17] MEDS: guaiFENesin ER 600 MG TAB PO SCH ×2 (09:30→20:46)
[2020-08-17] MEDS: Docusate 100 MG CAP PO SCH ×2 (09:31→20:48)
[2020-08-17] MEDS: clonazePAM 0.5 MG TAB PO SCH ×2 (09:35→20:45)
[2020-08-17] MEDS: Enoxaparin Sodium 60 MG/0.6 ML SYRINGE SC SCH ×2 (09:36→20:53)
[2020-08-17] MEDS: Polyethylene Glycol 3350 17 GM Packet PO SCH (09:36)
[2020-08-17] MEDS: Dexamethasone 1 MG TAB PO SCH (13:29)
[2020-08-17] MEDS: Rosuvastatin 20 MG TAB PO SCH (20:47)
[2020-08-17] MEDS: Ezetimibe 10 MG TAB PO SCH (20:47)
[2020-08-18] MEDS: Albuterol 200 PUFF (6.7GM INHALER) INH SCH ×7 (02:51→22:30)
--- NOTE | 2020-08-18 06:16 | PDOC.FM ---
- Subjective Subjective: Patient continues to require high flow nasal cannula, stating she feels like her breathing is worse at night. She is eager to go home and understands being on the high flow is keeping her here. She is open to trying various things to treat her anxiety. - Objective Vital Signs & Weight: Vital Signs (12 hours) Temp Pulse Resp BP Pulse Ox 08/18/20 05:05 97 08/18/20 03:30 97.8 F 66 22 H 128/78 96 08/18/20 00:00 96.9 F L 69 20 124/73 97 08/17/20 20:00 98.2 F 71 20 123/76 96 Weight Admit Weight 187.833 kg Weight 184.385 kg I&O: 08/16/20 08/17/20 08/18/20 06:59 06:59 06:59 Intake Total 0 Balance 0 Result Diagrams: 08/16/20 09:36 08/16/20 09:36 EKG Reviewed by me: Yes (tele: SR, 50-70s) Phys Exam - Physical Examination Constitutional: NAD HEENT: moist MMs, sclera anicteric Neck: full ROM Respiratory: no wheezing, no rales, no rhonchi, clear to auscultation bilateral Cardiovascular: RRR, no significant murmur Gastrointestinal: soft, non-tender Musculoskeletal: pulses present, edema present Neurological: non-focal Psychiatric: normal affect, A&O x 3 Skin: no rash Dx/Plan - Plan Plan: Acute hypoxic respiratory failure 2/2 to COVID PNA - s/p decadron, albuterol, rocephin and azithro in ED. Completed Decadron course (6 mg PO daily- started 07/26-08/13). - D-dimer: 1.20 -> 0.85,Procal 0.88 -> 0.13 - Lovenox 50mg BID, Anti-Xa on 08/09 0.42. - S/p remdesevir and convalescent plasma (07/28/20) - O2 requirement: on HFNC, Continue to wean O2 as tolerated. - Albuterol PRN, Dulera NYDIA, Mucinex, Tessalon, vitamin D - Continue decadron taper, last dose today. Suspected overlying RUL bacterial pneumonia - Repeat CXR 08/07 in setting of worsening tachypnea. Showed worsening RUL infiltrate. CXR 08/12 showed no change - Azithro (08/07-08/11), Rocephin (08/07-08/13). Negative Procal and clinical improvement. - WBC 12.9, 11.3 Anxiety - Clonazapam 0.25mg BID with improvement of breathing. Will increase if needed to help us wean oxygen. - Start Zoloft 50mg today. CHF - on lasix at home - BNP: 144 on admission - monitor fluid status DEANDRE, improved - Cr: 1.79 -> 1.56 > 1.48 > 1.31 > 1.27(baseline ~ 1.15) - Improvement after mild fluids x 2 days, will hold on continuing fluids d/t CHF HTN - continue home medication DM - diet controlled - mild SSI and hypoglycemia protocol ordered Atypical chest pain with indeterminate troponins, resolved - s/p lovenox, aspirin, and nitro in ED - EKG: T wave inversions in aVL, no ST changes - Troponin was trended-stable 0.066 -> 0.061 -> 0.063. Indeterminate trop likely 2/2 to COVID PNA, no longer having CP Hypokalemia, resolved - continue to monitor PCP: Jonnie Code: FULL IVF: SL Diet: HH and CC DVT ppx: 50 mg Lovenox bid Dispo: admitted to tele inpt. Discharge pending ability to wean off HNC and maintain sats on O2. PT consulted. CM consulted for dispo planning, patient approved with [facility] once able to go home. Will need home O2 when patient is ready for discharge. Addendum - Attending - Attending Attestation Date/Time: 08/18/20 1113 I personally evaluated the patient and discussed the management with Dr. dyer. I agree with the History, Examination, Assessment and Plan documented above with any addition or exceptions noted below. Continue to wean HFNC. Once on regular NC could potentially d/c home v SNF/rehab. Continue to work w/ PT/OT
[2020-08-18] MEDS: Mometasone 100 MCG/Formoterol 5 MCG 120 PUFF INHALER INH SCH ×2 (07:13→18:24)
[2020-08-18] MEDS: clonazePAM 0.5 MG TAB PO SCH ×2 (08:39→21:02)
[2020-08-18] MEDS: Lisinopril 20 MG TAB PO SCH ×2 (08:42→09:15)
[2020-08-18] MEDS: guaiFENesin ER 600 MG TAB PO SCH ×2 (08:42→21:03)
[2020-08-18] MEDS: Metoprolol Tartrate 100 MG TAB PO SCH ×2 (08:43→21:04)
[2020-08-18] MEDS: Aspirin 81 mg Enteric Coated Tablet PO SCH (08:43)
[2020-08-18] MEDS: Cholecalciferol (Vitamin D3) 400 UNITS TAB PO SCH (08:43)
[2020-08-18] MEDS: Dexamethasone 1 MG TAB PO SCH (08:43)
[2020-08-18] MEDS: Amlodipine 10 MG TAB PO SCH (08:43)
[2020-08-18] MEDS: Ascorbic Acid 500 mg Chewable Tablet PO SCH (08:44)
[2020-08-18] MEDS: Enoxaparin Sodium 60 MG/0.6 ML SYRINGE SC SCH ×2 (08:44→21:03)
[2020-08-18] MEDS: Polyethylene Glycol 3350 17 GM Packet PO SCH (09:15)
[2020-08-18] MEDS: Docusate 100 MG CAP PO SCH ×2 (09:15→21:02)
[2020-08-18] MEDS ORDERED: clonazePAM 0.5 MG TAB PO SCH ×2 (13:28→13:45)
[2020-08-18] MEDS: Ezetimibe 10 MG TAB PO SCH (21:02)
[2020-08-18] MEDS: Rosuvastatin 20 MG TAB PO SCH (21:02)
[2020-08-18] MEDS: Benzonatate 100 MG CAP PO PRN (21:03)
[2020-08-19] MEDS: Albuterol 200 PUFF (6.7GM INHALER) INH SCH ×6 (02:30→21:16)
[2020-08-19] MEDS: Mometasone 100 MCG/Formoterol 5 MCG 120 PUFF INHALER INH SCH ×2 (05:38→17:47)
--- NOTE | 2020-08-19 06:40 | PDOC.FM ---
- Subjective Subjective: Ms. Ochoa is breathing well this morning. She says she feels like she can't breath every time they try to decrease her high flow and switch to nasal cannula and she becomes extremely nervous. - Objective Vital Signs & Weight: Vital Signs (12 hours) Temp Pulse Resp BP Pulse Ox 08/19/20 04:00 97.9 F 68 18 116/62 95 08/18/20 23:14 98.3 F 62 18 104/53 L 95 08/18/20 19:37 97.8 F 79 20 105/58 L 96 Weight Admit Weight 187.833 kg Weight 184.385 kg Result Diagrams: 08/16/20 09:36 08/16/20 09:36 EKG Reviewed by me: Yes (sinus arrythmia 45-50s) Phys Exam - Physical Examination Constitutional: NAD HEENT: moist MMs, sclera anicteric Neck: no nodes Respiratory: no wheezing, no rales, no rhonchi, clear to auscultation bilateral Cardiovascular: RRR, no significant murmur Gastrointestinal: soft, non-tender Musculoskeletal: pulses present, edema present Neurological: non-focal Psychiatric: normal affect, A&O x 3 Skin: no rash Dx/Plan - Plan Plan: Acute hypoxic respiratory failure 2/2 to COVID PNA - s/p decadron, albuterol, rocephin and azithro in ED. - D-dimer: 1.20 -> 0.85,Procal 0.88 -> 0.13 - Lovenox 50mg BID, Anti-Xa on 08/09 0.42. - S/p remdesevir and convalescent plasma (07/28/20) and decadron - O2 requirement: on HFNC, Continue to wean O2 as tolerated. - Albuterol PRN, Dulera NYDIA, Mucinex, Tessalon, vitamin D - Patient's inability to be weaned to nasal cannula seemed to be related to her anxiety level. Will continue to treat anxiety in attempt to wean O2 so patient may be discharged on nasal cannula. Suspected overlying RUL bacterial pneumonia - Repeat CXR 08/07 in setting of worsening tachypnea. Showed worsening RUL infiltrate. CXR 08/12 showed no change - Azithro (08/07-08/11), Rocephin (08/07-08/13). Negative Procal and clinical improvement. - WBC 12.9, 11.3 Anxiety - Increase Clonazapam to 0.5g BID. - Continue Zoloft 50mg daily CHF - on lasix at home - BNP: 144 on admission - monitor fluid status DEANDRE, improved - Cr: 1.79 > 1.27(baseline ~ 1.15) - Improvement after mild fluids x 2 days, will hold on continuing fluids d/t CHF HTN - continue home medication DM - diet controlled - mild SSI and hypoglycemia protocol ordered Atypical chest pain with indeterminate troponins, resolved - s/p lovenox, aspirin, and nitro in ED - EKG: T wave inversions in aVL, no ST changes - Troponin was trended-stable 0.066 -> 0.061 -> 0.063. Indeterminate trop likely 2/2 to COVID PNA, no longer having CP Hypokalemia, resolved - continue to monitor PCP: Jonnie Code: FULL IVF: SL Diet: HH and CC DVT ppx: 50 mg Lovenox bid Dispo: Discharge pending ability to wean off HFNC and maintain sats on O2. Patient approved with [facility] once able to go home. Will need home O2 when patient is ready for discharge. Continue to work with PT and OT. Addendum - Attending - Attending Attestation Date/Time: 08/19/20 6591 I personally evaluated the patient and discussed the management with Dr. Roland. I agree with the History, Examination, Assessment and Plan documented above with any addition or exceptions noted below. patient agreed to placement at SNF/Rehab for conditioning. will start this process today. Will aggressively down titrate HFNC. Once on NC can d/c.
[2020-08-19] MEDS: Aspirin 81 mg Enteric Coated Tablet PO SCH (08:58)
[2020-08-19] MEDS: Amlodipine 10 MG TAB PO SCH (08:58)
[2020-08-19] MEDS: Cholecalciferol (Vitamin D3) 400 UNITS TAB PO SCH (08:58)
[2020-08-19] MEDS: Lisinopril 20 MG TAB PO SCH (08:59)
[2020-08-19] MEDS: Ascorbic Acid 500 mg Chewable Tablet PO SCH (08:59)
[2020-08-19] MEDS: Docusate 100 MG CAP PO SCH ×2 (09:00→21:16)
[2020-08-19] MEDS: clonazePAM 0.5 MG TAB PO SCH ×2 (09:00→21:15)
[2020-08-19] MEDS: Metoprolol Tartrate 100 MG TAB PO SCH ×2 (09:00→21:15)
[2020-08-19] MEDS: Enoxaparin Sodium 60 MG/0.6 ML SYRINGE SC SCH ×2 (09:00→21:15)
[2020-08-19] MEDS: Polyethylene Glycol 3350 17 GM Packet PO SCH (09:01)
[2020-08-19] MEDS: guaiFENesin ER 600 MG TAB PO SCH ×2 (09:09→21:15)
[2020-08-19] MEDS: Rosuvastatin 20 MG TAB PO SCH (21:15)
[2020-08-19] MEDS: Ezetimibe 10 MG TAB PO SCH (21:15)
[2020-08-20] MEDS: Albuterol 200 PUFF (6.7GM INHALER) INH SCH ×6 (02:30→22:30)
[2020-08-20] MEDS: Mometasone 100 MCG/Formoterol 5 MCG 120 PUFF INHALER INH SCH ×2 (06:05→18:11)
--- NOTE | 2020-08-20 06:50 | PDOC.FM ---
- Subjective Subjective: Patient was comfortable on 6L nasal cannula yesterday afternoon. She was put on venturi mask during her bath and has not yet been changed back to NC. Patient reports she felt like she was breathing well on the NC. - Objective Vital Signs & Weight: Vital Signs (12 hours) Temp Pulse Resp BP Pulse Ox 08/20/20 04:00 98.2 F 74 18 122/73 91 L 08/20/20 00:00 97.9 F 60 19 120/72 92 L 08/19/20 19:23 97.5 F L 75 18 120/67 87 L Weight Admit Weight 187.833 kg Weight 184.385 kg I&O: 08/18/20 08/19/20 08/20/20 06:59 06:59 06:59 Intake Total 1000 Output Total 600 Balance 400 Result Diagrams: 08/20/20 08:59 08/20/20 08:59 EKG Reviewed by me: Yes (tele: SR 60s) Phys Exam - Physical Examination Constitutional: NAD HEENT: moist MMs, sclera anicteric Neck: no nodes Respiratory: no wheezing, no rales, no rhonchi, clear to auscultation bilateral Cardiovascular: RRR, no significant murmur Gastrointestinal: soft, non-tender Musculoskeletal: pulses present, edema present Neurological: non-focal Psychiatric: normal affect, A&O x 3 Skin: no rash Dx/Plan - Plan Plan: Acute hypoxic respiratory failure 2/2 to COVID PNA - s/p decadron, albuterol, rocephin and azithro in ED. - D-dimer: 1.20 -> 0.85,Procal 0.88 -> 0.13 - Lovenox 50mg BID, Anti-Xa on 08/09 0.42. - S/p remdesevir and convalescent plasma (07/28/20) and decadron - O2 requirement: on HFNC, Continue to wean O2 as tolerated. - Albuterol PRN, Dulera NYDIA, Mucinex, Tessalon, vitamin D - Patient's inability to be weaned to nasal cannula seemed to be related to her anxiety level. Will continue to treat anxiety in attempt to wean O2 so patient may be discharged on nasal cannula. Patient currently moving between venturi mask and nasal cannula. Will continue to wean O2 as tolerated with goal of patient maintaining on nasal cannula. Suspected overlying RUL bacterial pneumonia - Repeat CXR 08/07 in setting of worsening tachypnea. Showed worsening RUL infiltrate. CXR 08/12 showed no change - Azithro (08/07-08/11), Rocephin (08/07-08/13). Negative Procal and clinical impr ovement. - WBC 12.9, 11.3 Anxiety - Continue Clonazepam 0.5g BID. - Continue Zoloft 50mg daily CHF - on lasix at home - BNP: 144 on admission - monitor fluid status DEANDRE, improved - Cr: 1.79 > 1.27(baseline ~ 1.15) - Improvement after mild fluids x 2 days, will hold on continuing fluids d/t CHF HTN - continue home medication DM - diet controlled - mild SSI and hypoglycemia protocol ordered Atypical chest pain with indeterminate troponins, resolved - s/p lovenox, aspirin, and nitro in ED - EKG: T wave inversions in aVL, no ST changes - Troponin was trended-stable 0.066 -> 0.061 -> 0.063. Indeterminate trop likely 2/2 to COVID PNA, no longer having CP Hypokalemia, resolved - continue to monitor PCP: Jonnie Code: FULL IVF: SL Diet: HH and CC DVT ppx: 50 mg Lovenox bid Dispo: Patient may discharge when she is stable on nasal cannula. Patient is agreeable to rehab or snf placement which CM is working on. Continue to work with PT and OT. Addendum - Attending - Attending Attestation Date/Time: 08/20/20 2430 I personally evaluated the patient and discussed the management with Dr. Roland. I agree with the History, Examination, Assessment and Plan documented above with any addition or exceptions noted below.
[2020-08-20 09:30] LABS: #Basophils 0.1 thou/uL (0.0-0.2); #Eosinphils 0.8 thou/uL (0.0-0.7); #Lymphocytes 0.8 thou/uL (1.20-3.40); #Monocytes 0.6 thou/uL (0.11-0.59); %Basophils 0.5 % (0.0-1.0); %Eosinophils 7.7 % (0.0-10.0); %Lymphocytes 7.5 % (21.0-51.0); %Monocytes 5.5 % (0.0-10.0); %Neutrophils 78.8 % (42.0-75.0); Mean Corpuscular HGB CONC 32.3 g/dL (32.0-36.0); Mean Corpuscular Hemoglobin 29.1 pg (27.0-31.0); Mean Corpuscular Volume 90.1 fL (78.0-98.0); Mean Platelet Volume 10.2 fL (7.4-10.4); Platelet Count 192 thou/uL (130-400); RBC Distribution Width 14.4 % (11.5-14.5); Red Blood Cell (RBC) Count 3.79 mill/uL (4.20-5.40); White Blood Cell (WBC) Count 10.2 thou/uL (4.8-10.8)
[2020-08-20 09:42] LABS: Anion Gap 14 mmol/L (10-20); BUN (Urea Nitrogen) 28 mg/dL (9.8-20.1); Calc. Creatinine Clearance 120 mL/min (70-130); Calcium 8.6 mg/dL (7.8-10.44); Carbon Dioxide 22 mmol/L (23-31); Chloride 110 mmol/L (98-107); Glucose 88 mg/dL (83-110); Potassium 4.3 mmol/L (3.5-5.1); Sodium 142 mmol/L (136-145)
[2020-08-20] MEDS: Enoxaparin Sodium 60 MG/0.6 ML SYRINGE SC SCH ×2 (10:23→20:29)
[2020-08-20] MEDS: clonazePAM 0.5 MG TAB PO SCH ×2 (10:24→20:30)
[2020-08-20] MEDS: guaiFENesin ER 600 MG TAB PO SCH ×2 (10:24→20:30)
[2020-08-20] MEDS: Aspirin 81 mg Enteric Coated Tablet PO SCH (10:24)
[2020-08-20] MEDS: Amlodipine 10 MG TAB PO SCH (10:25)
[2020-08-20] MEDS: Metoprolol Tartrate 100 MG TAB PO SCH ×2 (10:25→20:30)
[2020-08-20] MEDS: Ascorbic Acid 500 mg Chewable Tablet PO SCH (10:25)
[2020-08-20] MEDS: Cholecalciferol (Vitamin D3) 400 UNITS TAB PO SCH (10:25)
[2020-08-20] MEDS: Docusate 100 MG CAP PO SCH ×2 (10:27→20:46)
[2020-08-20] MEDS: Lisinopril 20 MG TAB PO SCH (10:27)
[2020-08-20] MEDS: Polyethylene Glycol 3350 17 GM Packet PO SCH (10:27)
[2020-08-20] MEDS: Ezetimibe 10 MG TAB PO SCH (20:30)
[2020-08-20] MEDS: Rosuvastatin 20 MG TAB PO SCH (20:31)
[2020-08-21] MEDS: Albuterol 200 PUFF (6.7GM INHALER) INH SCH ×5 (02:30→20:14)
[2020-08-21] MEDS: Mometasone 100 MCG/Formoterol 5 MCG 120 PUFF INHALER INH SCH ×2 (05:43→18:12)
--- NOTE | 2020-08-21 07:05 | PDOC.FM ---
- Subjective Subjective: Ms. Ochoa required venti mask while being changed and bathed yesterday and has not yet been switched back to nasal cannula. Case management is working on placement at [facility]. - Objective Vital Signs & Weight: Vital Signs (12 hours) Temp Pulse Resp BP Pulse Ox 08/21/20 03:30 97.9 F 78 30 H 105/58 L 91 L 08/21/20 02:57 93 L 08/21/20 00:00 97.6 F 68 22 H 112/55 L 96 08/20/20 19:15 98.4 F 74 28 H 108/60 92 L Weight Admit Weight 187.833 kg Weight 184.385 kg I&O: 08/20/20 08/21/20 08/22/20 06:59 06:59 06:59 Intake Total 1000 780 Output Total 600 Balance 400 780 Result Diagrams: 08/20/20 08:59 08/20/20 08:59 EKG Reviewed by me: Yes (tele: SR 50-70s) Phys Exam - Physical Examination Constitutional: NAD HEENT: moist MMs, sclera anicteric Neck: full ROM Respiratory: no wheezing, no rales, no rhonchi, clear to auscultation bilateral Cardiovascular: RRR, no significant murmur Gastrointestinal: soft, non-tender Musculoskeletal: pulses present, edema present Neurological: non-focal Psychiatric: normal affect, A&O x 3 Skin: no rash Dx/Plan - Plan Plan: Acute hypoxic respiratory failure 2/2 to COVID PNA - s/p decadron, albuterol, rocephin and azithro in ED. - D-dimer: 1.20 -> 0.85,Procal 0.88 -> 0.13 - Lovenox 50mg BID, Anti-Xa on 08/09 0.42. - S/p remdesevir and convalescent plasma (07/28/20) and decadron - Albuterol PRN, Dulera NYDIA, Mucinex, Tessalon, vitamin D - O2 requirement: switching back and forth between 6L nasal cannula and venti mask. Requiring venti mask while being changed or cleaned. Continue to wean O2 as tolerated. Suspected overlying RUL bacterial pneumonia - Repeat CXR 08/07 in setting of worsening tachypnea. Showed worsening RUL infiltrate. CXR 08/12 showed no change - Azithro (08/07-08/11), Rocephin (08/07-08/13). Negative Procal and clinical improvement. - WBC 12.9, 11.3 Anxiety - Continue Clonazepam 0.5g BID. - Continue Zoloft 50mg daily CHF - restart home lasix - BNP: 144 on admission - monitor fluid status - recheck BNP and CXR to evaluate if any fluid overload is contributing to patient's inability to wean O2 DEANDRE, improved - Cr: 1.79 > 1.27(baseline ~ 1.15) - Improvement after mild fluids x 2 days, will hold on continuing fluids d/t CHF HTN - continue home medication DM - diet controlled - mild SSI and hypoglycemia protocol ordered Atypical chest pain with indeterminate troponins, resolved - s/p lovenox, aspirin, and nitro in ED - EKG: T wave inversions in aVL, no ST changes - Troponin was trended-stable 0.066 -> 0.061 -> 0.063. Indeterminate trop likely 2/2 to COVID PNA, no longer having CP Hypokalemia, resolved - continue to monitor PCP: Jonnie Code: FULL IVF: SL Diet: HH and CC DVT ppx: 50 mg Lovenox bid Dispo: Patient may discharge when she is stable on nasal cannula. CM consult placed - information sent to [facility]. Continue to work with PT and OT.
[2020-08-21] MEDS: Enoxaparin Sodium 60 MG/0.6 ML SYRINGE SC SCH ×2 (08:41→20:11)
[2020-08-21] MEDS: Polyethylene Glycol 3350 17 GM Packet PO SCH (08:41)
[2020-08-21] MEDS: Cholecalciferol (Vitamin D3) 400 UNITS TAB PO SCH (08:42)
[2020-08-21] MEDS: Aspirin 81 mg Enteric Coated Tablet PO SCH (08:42)
[2020-08-21] MEDS: Docusate 100 MG CAP PO SCH ×2 (08:42→20:10)
[2020-08-21] MEDS: Ascorbic Acid 500 mg Chewable Tablet PO SCH (08:42)
[2020-08-21] MEDS: guaiFENesin ER 600 MG TAB PO SCH ×2 (08:44→20:10)
[2020-08-21] MEDS: clonazePAM 0.5 MG TAB PO SCH ×2 (08:44→20:09)
[2020-08-21] MEDS: Amlodipine 10 MG TAB PO SCH (08:45)
[2020-08-21] MEDS: Metoprolol Tartrate 100 MG TAB PO SCH ×2 (08:46→20:11)
--- NOTE | 2020-08-21 10:00 | RAD ---
RADIOGRAPH CHEST 1 VIEW: DATE: 08/21/2020 TIME: 9:41 AM HISTORY: 70-year-old female with dyspnea COMPARISON: 08/12/2020 FINDINGS: Diffuse bilateral airspace disease, consolidations. Sternotomy wires. No pneumothorax or cardiomegaly. No interval change. IMPRESSION: No interval change in severe bilateral infiltrates.
[2020-08-21] MEDS: Lisinopril 20 MG TAB PO SCH (10:44)
[2020-08-21] MEDS: Furosemide 20 MG TAB PO SCH ×2 (10:45→18:10)
[2020-08-21] MEDS ORDERED: Furosemide 20 MG TAB PO SCH (11:30)
[2020-08-21] MEDS: Rosuvastatin 20 MG TAB PO SCH (20:08)
[2020-08-21] MEDS: Ezetimibe 10 MG TAB PO SCH (20:11)
[2020-08-22] MEDS: Albuterol 200 PUFF (6.7GM INHALER) INH SCH ×6 (00:20→18:00)
--- NOTE | 2020-08-22 06:41 | PDOC.FM ---
- Subjective Subjective: Ms. Ochoa is comfortable this AM. She denies headache or CP. Per CM note, patient was medically approved for rehab but insurance denied. Family is filing an appeal. - Objective Vital Signs & Weight: Vital Signs (12 hours) Temp Pulse Resp BP Pulse Ox 08/22/20 03:54 98.2 F 92 20 110/68 89 L 08/22/20 00:00 22 H 108/73 94 L 08/21/20 20:00 96 08/21/20 19:41 97.3 F L 82 17 113/62 93 L Weight Admit Weight 187.833 kg Weight 184.385 kg I&O: 08/20/20 08/21/20 08/22/20 06:59 06:59 06:59 Intake Total 1000 780 Output Total 600 Balance 400 780 Result Diagrams: 08/20/20 08:59 08/20/20 08:59 EKG Reviewed by me: Yes (SR 70-80s) Phys Exam - Physical Examination Constitutional: NAD HEENT: sclera anicteric Neck: no nodes Respiratory: no wheezing, no rales, no rhonchi, clear to auscultation bilateral Cardiovascular: RRR, no significant murmur Gastrointestinal: soft, non-tender Musculoskeletal: pulses present, edema present Neurological: non-focal Psychiatric: normal affect, A&O x 3 Skin: no rash Dx/Plan - Plan Plan: Acute hypoxic respiratory failure 2/2 to COVID PNA - s/p decadron, albuterol, rocephin and azithro in ED. - D-dimer: 1.20 -> 0.85,Procal 0.88 -> 0.13 - Lovenox 50mg BID, Anti-Xa on 08/09 0.42. - S/p remdesevir and convalescent plasma (07/28/20) and decadron - Albuterol PRN, Dulera NYDIA, Mucinex, Tessalon, vitamin D - O2 requirement: switching back and forth between 6L nasal cannula and venti mask. Requiring venti mask while being changed or cleaned. Continue to wean O2 as tolerated. - Placement: medically approved for [facility] but denied by insurance. Family is filing an appeal. Suspected overlying RUL bacterial pneumonia - Repeat CXR 08/07 in setting of worsening tachypnea. Showed worsening RUL infiltrate. CXR 08/12 showed no change - Azithro (08/07-08/11), Rocephin (08/07-08/13). Negative Procal and clinical improvement. - WBC 12.9, 11.3 Anxiety - Continue Clonazepam 0.5g BID. - Continue Zoloft 50mg daily CHF - BNP: 144 on admission - monitor fluid status - Repeat CXR and BNP on 08/21 were negative. Restarted home lasix. DEANDRE, improved - Cr: 1.79 > 1.27(baseline ~ 1.15) - Improvement after mild fluids x 2 days, will hold on continuing fluids d/t CHF HTN - continue home medication DM - diet controlled - mild SSI and hypoglycemia protocol ordered Atypical chest pain with indeterminate troponins, resolved - s/p lovenox, aspirin, and nitro in ED - EKG: T wave inversions in aVL, no ST changes - Troponin was trended-stable 0.066 -> 0.061 -> 0.063. Indeterminate trop likely 2/2 to COVID PNA, no longer having CP Hypokalemia, resolved - continue to monitor PCP: Jonnie Code: FULL IVF: SL Diet: HH and CC DVT ppx: 50 mg Lovenox bid Dispo: Medically approved for [facility], insurance denial appeal in progress. Continue to work with PT and OT. Addendum - Attending - Attending Attestation Date/Time: 08/22/20 1113 I personally evaluated the patient and discussed the management with Dr. Roland. I agree with the History, Examination, Assessment and Plan documented above with any addition or exceptions noted below. she has been requiring the venti mask more frequently. Will restart HFNC and attempt to down titrate in a few days. will also discuss LTAC placement with CM as a potential option towards discharge.
[2020-08-22] MEDS: Mometasone 100 MCG/Formoterol 5 MCG 120 PUFF INHALER INH SCH ×2 (06:49→18:00)
[2020-08-22] MEDS: Cholecalciferol (Vitamin D3) 400 UNITS TAB PO SCH (10:25)
[2020-08-22] MEDS: Aspirin 81 mg Enteric Coated Tablet PO SCH (10:26)
[2020-08-22] MEDS: clonazePAM 0.5 MG TAB PO SCH ×2 (10:26→21:31)
[2020-08-22] MEDS: guaiFENesin ER 600 MG TAB PO SCH ×2 (10:27→21:32)
[2020-08-22] MEDS: Metoprolol Tartrate 100 MG TAB PO SCH ×2 (10:28→21:35)
[2020-08-22] MEDS: Amlodipine 10 MG TAB PO SCH (10:29)
[2020-08-22] MEDS: Furosemide 20 MG TAB PO SCH ×2 (10:29→21:33)
[2020-08-22] MEDS: Enoxaparin Sodium 60 MG/0.6 ML SYRINGE SC SCH ×2 (10:30→20:45)
[2020-08-22] MEDS: Lisinopril 20 MG TAB PO SCH (10:32)
[2020-08-22] MEDS: Ascorbic Acid 500 mg Chewable Tablet PO SCH (10:32)
[2020-08-22] MEDS: Polyethylene Glycol 3350 17 GM Packet PO SCH (10:32)
[2020-08-22] MEDS: Docusate 100 MG CAP PO SCH (10:33)
[2020-08-22] MEDS: Rosuvastatin 20 MG TAB PO SCH (21:31)
[2020-08-22] MEDS: Ezetimibe 10 MG TAB PO SCH (21:31)
[2020-08-23] MEDS: Docusate 100 MG CAP PO SCH ×2 (02:02→09:31)
[2020-08-23] MEDS: Albuterol 200 PUFF (6.7GM INHALER) INH SCH ×6 (02:04→18:15)
--- NOTE | 2020-08-23 06:14 | PDOC.FM ---
- Subjective Subjective: Ms. Ochoa says she is more comfortable today on the high flow. She has no complaints and denies headache or chest pain. - Objective Vital Signs & Weight: Vital Signs (12 hours) Temp Pulse Resp BP Pulse Ox 08/23/20 04:20 97.6 F 85 22 H 107/74 95 08/23/20 03:22 95 08/23/20 02:42 100 08/23/20 00:00 97.9 F 70 20 117/69 95 08/22/20 22:35 100 08/22/20 20:00 93 L 08/22/20 19:50 97.8 F 77 22 H 124/76 96 08/22/20 19:10 92 L Weight Admit Weight 187.833 kg Weight 184.385 kg I&O: 08/21/20 08/22/20 08/23/20 06:59 06:59 06:59 Intake Total 780 240 Balance 780 240 Result Diagrams: 08/20/20 08:59 08/20/20 08:59 EKG Reviewed by me: Yes (tele: SR 60-80s) Phys Exam - Physical Examination Constitutional: NAD HEENT: moist MMs, sclera anicteric Neck: no nodes Respiratory: no wheezing, no rales, no rhonchi, clear to auscultation bilateral Cardiovascular: RRR, no significant murmur Gastrointestinal: soft, non-tender Musculoskeletal: pulses present, edema present Neurological: non-focal Psychiatric: normal affect, A&O x 3 Skin: no rash Dx/Plan - Plan Plan: Acute hypoxic respiratory failure 2/2 to COVID PNA - s/p decadron, albuterol, rocephin and azithro in ED. - D-dimer: 1.20 -> 0.85,Procal 0.88 -> 0.13 - Lovenox 50mg BID, Anti-Xa on 08/09 0.42. - S/p remdesevir and convalescent plasma (07/28/20) and decadron - Albuterol PRN, Dulera NYDIA, Mucinex, Tessalon, vitamin D - O2 requirement: back on HFNC and stable. Will continue to wean as tolerated with ultimate goal remaining stable on nasal cannula. - Placement: medically approved for [facility] but denied by insurance. Family is filing an appeal. Anxiety - Continue Clonazepam 0.5g BID. - Continue Zoloft 50mg daily CHF - BNP: 144 on admission - monitor fluid status - Repeat CXR and BNP on 08/21 were negative. - Continue home lasix HTN - continue home medication DM - diet controlled - mild SSI and hypoglycemia protocol ordered Suspected overlying RUL bacterial pneumonia, resolved - Repeat CXR 08/07 in setting of worsening tachypnea. Showed worsening RUL infiltrate. CXR 08/12 showed no change - Azithro (08/07-08/11), Rocephin (08/07-08/13). Negative Procal and clinical improvement. - WBC 12.9, 11.3 DEANDRE, improved - Cr: 1.79 > 1.27(baseline ~ 1.15) - Improvement after mild fluids x 2 days, will hold on continuing fluids d/t CHF Atypical chest pain with indeterminate troponins, resolved - s/p lovenox, aspirin, and nitro in ED - EKG: T wave inversions in aVL, no ST changes - Troponin was trended-stable 0.066 -> 0.061 -> 0.063. Indeterminate trop likely 2/2 to COVID PNA, no longer having CP Hypokalemia, resolved - continue to monitor PCP: Jonnie Code: FULL IVF: SL Diet: HH and CC DVT ppx: 50 mg Lovenox bid Dispo: Medically approved for [facility], insurance denial appeal in progress. Continue to work with PT and OT. Patient back on HFNC, will continue to wean O2 as tolerated. Addendum - Attending - Attending Attestation Date/Time: 08/23/20 [id number] I personally evaluated the patient and discussed the management with Dr. Roland. I agree with the History, Examination, Assessment and Plan documented above with any addition or exceptions noted below. Patient stable. Continue to wean HFNC as tolerated. She has completed other therapies for COVID infection. Consider Pulmicort to help decrease intra-lung inflammation?
[2020-08-23] MEDS: Mometasone 100 MCG/Formoterol 5 MCG 120 PUFF INHALER INH SCH (06:33)
[2020-08-23] MEDS: Enoxaparin Sodium 60 MG/0.6 ML SYRINGE SC SCH ×2 (09:29→20:43)
[2020-08-23] MEDS: Ascorbic Acid 500 mg Chewable Tablet PO SCH (09:30)
[2020-08-23] MEDS: Cholecalciferol (Vitamin D3) 400 UNITS TAB PO SCH (09:30)
[2020-08-23] MEDS: Furosemide 20 MG TAB PO SCH (09:31)
[2020-08-23] MEDS: clonazePAM 0.5 MG TAB PO SCH ×2 (09:31→20:43)
[2020-08-23] MEDS: guaiFENesin ER 600 MG TAB PO SCH ×2 (09:31→20:43)
[2020-08-23] MEDS: Aspirin 81 mg Enteric Coated Tablet PO SCH (09:31)
[2020-08-23] MEDS: Metoprolol Tartrate 100 MG TAB PO SCH (09:31)
[2020-08-23] MEDS: Amlodipine 10 MG TAB PO SCH (09:32)
[2020-08-23] MEDS: Lisinopril 20 MG TAB PO SCH (09:35)
[2020-08-23] MEDS: Polyethylene Glycol 3350 17 GM Packet PO SCH (09:36)
[2020-08-23 14:23] LABS: Anion Gap 17 mmol/L (10-20); BUN (Urea Nitrogen) 45 mg/dL (9.8-20.1); Calc. Creatinine Clearance 67 mL/min (70-130); Calcium 8.7 mg/dL (7.8-10.44); Carbon Dioxide 18 mmol/L (23-31); Chloride 113 mmol/L (98-107); Glucose 87 mg/dL (83-110); Potassium 4.4 mmol/L (3.5-5.1); Sodium 144 mmol/L (136-145)
[2020-08-23 14:27] LABS: #Eosinphils 0.7 thou/uL (0.0-0.7); #Lymphocytes 1.3 thou/uL (1.20-3.40); #Monocytes 0.7 thou/uL (0.11-0.59); #Neutrophils 7.8 thou/uL (1.40-6.50); %Basophils 0.3 % (0.0-1.0); %Eosinophils 7.1 % (0.0-10.0); %Lymphocytes 12.1 % (21.0-51.0); %Monocytes 6.8 % (0.0-10.0); %Neutrophils 73.7 % (42.0-75.0); Hemoglobin 11.6 g/dL (12.0-16.0); Mean Corpuscular HGB CONC 31.4 g/dL (32.0-36.0); Mean Corpuscular Hemoglobin 28.5 pg (27.0-31.0); Mean Corpuscular Volume 90.7 fL (78.0-98.0); RBC Distribution Width 15.4 % (11.5-14.5); Red Blood Cell (RBC) Count 4.09 mill/uL (4.20-5.40); White Blood Cell (WBC) Count 10.5 thou/uL (4.8-10.8)
[2020-08-23 14:43] LABS: MDiff Complete? YES; Mean Platelet Volume 10.6 fL (7.4-10.4); Platelet Count 93 thou/uL (130-400); Platelet Morphology Comment Appears Decreased; Polychromasia SLIGHT = 2-3 cells (100X) (0-2/hpf)
--- NOTE | 2020-08-23 15:36 | RAD ---
RADIOGRAPH CHEST 1 VIEW: DATE: 08/23/2020 TIME: 3:20 PM HISTORY: 70-year-old female with worsening dyspnea COMPARISON: 08/13/2020 FINDINGS: Diffuse moderate to severe infiltrates. No pneumothorax or cardiomegaly. IMPRESSION: No significant interval change in diffuse moderate to severe infiltrates
[2020-08-23] MEDS ORDERED: Mometasone 100 MCG/PUFF (1 INHALER) INH SCH (18:30)
[2020-08-23 20:00] LABS: Actual Bicarbonate (HCO3a) 19.2 mEq/L (22-28); CO2 Tension 32.6 mmHg (35.0-45.0); Calcium, Ionized (arterial) 1.21 mmol/L (1.12-1.30); Carboxyhemoglobin (COHb) 1.5 gm% (0.0-3.0); Hemoglobin (Hb) 11.5 g/dL (12.0-16.0); O2 Tension (PaO2), arterial 61.7 mmHg (> 70.0); Potassium - ABG Lab 4.05 mmol/L (3.70-5.30); pH, Arterial 7.39 (7.35-7.45)
[2020-08-23 20:02] LABS: Puncture Site RRA
[2020-08-23] MEDS: Rosuvastatin 20 MG TAB PO SCH (20:42)
[2020-08-23] MEDS: Ezetimibe 10 MG TAB PO SCH (20:42)
[2020-08-24] MEDS: Metoprolol Tartrate 100 MG TAB PO SCH ×3 (02:04→23:01)
[2020-08-24] MEDS: Docusate 100 MG CAP PO SCH ×2 (02:05→12:18)
[2020-08-24] MEDS: Albuterol 200 PUFF (6.7GM INHALER) INH SCH ×7 (03:40→23:21)
[2020-08-24] MEDS: Lactated Ringer's 500 ML IV SCH ×3 (05:05→12:20)
--- NOTE | 2020-08-24 06:18 | PDOC.FM ---
- Subjective Subjective: Yesterday patient's RR were sustaining in the 30s and she was having increased work of breathing. Ms. Ochoa says she is feeling much better today than she was yesterday. - Objective Vital Signs & Weight: Vital Signs (12 hours) Temp Pulse Resp BP Pulse Ox 08/24/20 02:47 97 08/24/20 02:32 84 90/55 L 97 08/24/20 02:11 76 20 94/56 L 96 08/23/20 22:45 95 08/23/20 20:00 96 08/23/20 19:39 97.8 F 74 22 H 93/82 92 L 08/23/20 18:23 98 Weight Admit Weight 187.833 kg Weight 184.385 kg I&O: 08/22/20 08/23/20 08/24/20 06:59 06:59 06:59 Intake Total 240 120 Output Total 0 Balance 240 120 0 Result Diagrams: 08/23/20 13:53 08/23/20 13:53 Additional Labs: ABG 7.39/32.6/61.7 Cr 2.25 EKG Reviewed by me: Yes (tele: SR 60-70s) Radiology Reviewed by me: Yes Radiology: CXR: no acute change Phys Exam - Physical Examination Constitutional: NAD HEENT: moist MMs, sclera anicteric Neck: no nodes Respiratory: no wheezing, no rales, no rhonchi, clear to auscultation bilateral Cardiovascular: RRR, no significant murmur Gastrointestinal: soft, non-tender Musculoskeletal: pulses present, edema present Neurological: moves all 4 limbs Psychiatric: normal affect, A&O x 3 Dx/Plan - Plan Plan: Acute hypoxic respiratory failure 2/2 to COVID PNA - s/p decadron, albuterol, rocephin and azithro in ED. - D-dimer: 1.20 -> 0.85,Procal 0.88 -> 0.13 - Lovenox 50mg BID, Anti-Xa on 08/09 0.42. - S/p remdesevir and convalescent plasma (07/28/20) and decadron - Albuterol PRN, Dulera NYDIA, Mucinex, Tessalon, vitamin D - Added pulmicort inhaler yesterday to try and help with respiratory status - Tachypnea yesterday (RR 30s) and increased work of breathing. Repeat CXR showed no acute changes, negative Ddimer, ABG 7.39/32.6/61.7 - O2 requirement: On HFNC and stable. Will continue to wean as tolerated with ultimate goal remaining stable on nasal cannula. - Placement: medically approved for [facility] but denied by insurance. Family is filing an appeal. DEANDRE - Cr: 1.2 > 2.25(baseline ~ 1.15) - Restarted home lasix on Tuesday evening. Have now discontinued. Patient's BP 90/55 this morning - giving 500mL LR at 175mL/hr - Repeat labs this morning Anxiety - Continue Clonazepam 0.5g BID. - Continue Zoloft 50mg daily CHF - BNP: 144 on admission - monitor fluid status - Repeat CXR and BNP on 08/21 were negative. - Continue home lasix HTN - continue home medication DM - diet controlled - mild SSI and hypoglycemia protocol ordered Suspected overlying RUL bacterial pneumonia, resolved - Repeat CXR 08/07 in setting of worsening tachypnea. Showed worsening RUL infiltrate. CXR 08/12 showed no change - Azithro (08/07-08/11), Rocephin (08/07-08/13). Negative Procal and clinical improvement. - WBC 12.9, 11.3 Atypical chest pain with indeterminate troponins, resolved - s/p lovenox, aspirin, and nitro in ED - EKG: T wave inversions in aVL, no ST changes - Troponin was trended-stable 0.066 -> 0.061 -> 0.063. Indeterminate trop likely 2/2 to COVID PNA, no longer having CP Hypokalemia, resolved - continue to monitor PCP: Jonnie Code: FULL IVF: SL Diet: HH and CC DVT ppx: 50 mg Lovenox bid Dispo: Medically approved for [facility], insurance denial appeal in progress. Continue to work with PT and OT. Patient back on HFNC, will continue to wean O2 as tolerated. Addendum - Attending - Attending Attestation Date/Time: 08/24/20 3058 I personally evaluated the patient and discussed the management with Dr. Roland. I agree with the History, Examination, Assessment and Plan documented above with any addition or exceptions noted below. Patient stable. We are overall continuing current treatment, have added inhaled steroid since she has completed all other therapies but still slow to wean from HFNC. Wean that as tolerated. We have held her diuretics given her bump in creatinine over the last few days. Overall continue current mgmt.
[2020-08-24 09:36] LABS: #Eosinphils 0.7 thou/uL (0.0-0.7); #Lymphocytes 0.8 thou/uL (1.20-3.40); #Monocytes 0.8 thou/uL (0.11-0.59); #Neutrophils 7.1 thou/uL (1.40-6.50); %Basophils 0.5 % (0.0-1.0); %Lymphocytes 8.4 % (21.0-51.0); %Monocytes 8.6 % (0.0-10.0); %Neutrophils 75.6 % (42.0-75.0); Hemoglobin 10.9 g/dL (12.0-16.0); Mean Corpuscular HGB CONC 32.1 g/dL (32.0-36.0); Mean Corpuscular Hemoglobin 29.4 pg (27.0-31.0); Mean Corpuscular Volume 91.6 fL (78.0-98.0); Mean Platelet Volume 10.4 fL (7.4-10.4); Platelet Count 177 thou/uL (130-400); RBC Distribution Width 15.3 % (11.5-14.5); Red Blood Cell (RBC) Count 3.72 mill/uL (4.20-5.40); White Blood Cell (WBC) Count 9.4 thou/uL (4.8-10.8)
[2020-08-24 09:54] LABS: Anion Gap 18 mmol/L (10-20); BUN (Urea Nitrogen) 58 mg/dL (9.8-20.1); Calc. Creatinine Clearance 49 mL/min (70-130); Calcium 8.6 mg/dL (7.8-10.44); Carbon Dioxide 18 mmol/L (23-31); Chloride 110 mmol/L (98-107); Glucose 87 mg/dL (83-110); Potassium 4.5 mmol/L (3.5-5.1); Sodium 141 mmol/L (136-145)
[2020-08-24] MEDS: Mometasone 100 MCG/Formoterol 5 MCG 120 PUFF INHALER INH SCH ×3 (11:25→18:30)
[2020-08-24] MEDS: Enoxaparin Sodium 60 MG/0.6 ML SYRINGE SC SCH ×2 (12:12→23:19)
[2020-08-24] MEDS: Aspirin 81 mg Enteric Coated Tablet PO SCH (12:13)
[2020-08-24] MEDS: Cholecalciferol (Vitamin D3) 400 UNITS TAB PO SCH (12:13)
[2020-08-24] MEDS: clonazePAM 0.5 MG TAB PO SCH ×2 (12:14→22:59)
[2020-08-24] MEDS: guaiFENesin ER 600 MG TAB PO SCH ×2 (12:14→23:03)
[2020-08-24] MEDS: Ascorbic Acid 500 mg Chewable Tablet PO SCH (12:14)
[2020-08-24] MEDS: Polyethylene Glycol 3350 17 GM Packet PO SCH (12:17)
[2020-08-24] MEDS: Amlodipine 10 MG TAB PO SCH (12:22)
[2020-08-24] MEDS: Lisinopril 20 MG TAB PO SCH (12:23)
[2020-08-24] MEDS ORDERED: Docusate 100 MG CAP PO PRN (12:43)
[2020-08-24] MEDS ORDERED: Polyethylene Glycol 3350 17 GM Packet PO PRN (12:43)
[2020-08-24] MEDS: Lactated Ringer's 1,000 ML IV SCH (13:40)
--- NOTE | 2020-08-24 15:00 | ULT ---
ULTRASOUND RETROPERITONEUM COMPLETE: (RENAL) DATE: 08/24/2020 HISTORY: 70-year-old female with renal dysfunction: Elevated serum creatinine FINDINGS: There is poor visualization of kidneys due to body habitus. Renal measurements are rough approximations. The right kidney measures 9 x 4.5 x 4.5 cm. The left kidney measures 11.5 x 5 x 6.5 cm. There is no hydronephrosis. Cursory images of the urinary bladder demonstrate no gross abnormality. Prevoid urinary bladder volume 315 mL. IMPRESSION: No hydronephrosis
[2020-08-24 16:14] LABS: Anion Gap 17 mmol/L (10-20); BUN (Urea Nitrogen) 63 mg/dL (9.8-20.1); Calc. Creatinine Clearance 43 mL/min (70-130); Calcium 8.3 mg/dL (7.8-10.44); Carbon Dioxide 15 mmol/L (23-31); Chloride 109 mmol/L (98-107); Glucose 90 mg/dL (83-110); Potassium 5.4 mmol/L (3.5-5.1); Sodium 136 mmol/L (136-145)
[2020-08-24] MEDS ORDERED: Ondansetron PF 4 MG/2 ML Vial IVP PRN (19:32)
[2020-08-24 20:37] LABS: Bacteria/HPF None Seen HPF (None Seen); Bilirubin Negative (Negative); Blood, Urine Negative (Negative); Clarity Turbid (Clear); Glucose, Urine (Dipstick) Normal (Negative); Ketone, Urine Negative (Negative); Leukocyte Negative Leu/uL (Negative); Nitrite Negative (Negative); Protein, Urine (Dipstick) 100 mg/dL (Neg-Trace); RBC/HPF 0-3 HPF (0-3); Specific Gravity, Urine 1.018 (1.002-1.036); Squamous Epithelial 0-3 HPF (0-3); Urobilinogen Normal mg/dL (Less than 2); WBC/HPF None Seen HPF (0-3); pH, Urine 5.5 (5.0-9.0)
[2020-08-24 20:52] LABS: Creatinine, Urine 124.99 mg/dL (47-110)
[2020-08-24] MEDS: Ezetimibe 10 MG TAB PO SCH (23:00)
[2020-08-24] MEDS: Rosuvastatin 20 MG TAB PO SCH (23:02)
[2020-08-25] MEDS: Albuterol 200 PUFF (6.7GM INHALER) INH SCH ×6 (02:51→22:30)
[2020-08-25] MEDS: Lactated Ringer's 1,000 ML IV SCH ×3 (02:51→16:34)
[2020-08-25 06:32] LABS: Anion Gap 14 mmol/L (10-20); BUN (Urea Nitrogen) 69 mg/dL (9.8-20.1); Calc. Creatinine Clearance 38 mL/min (70-130); Calcium 8.4 mg/dL (7.8-10.44); Carbon Dioxide 23 mmol/L (23-31); Chloride 107 mmol/L (98-107); Glucose 85 mg/dL (83-110); Potassium 4.7 mmol/L (3.5-5.1); Sodium 139 mmol/L (136-145)
--- NOTE | 2020-08-25 06:53 | PDOC.FM ---
- Subjective Subjective: Ms. Ochoa had no complaints today. She denies CP or increased SOB, saying she feels comfortable on the high flow. Of note, patient was restarted on IV fluids and a estrella was placed yesterday. - Objective Vital Signs & Weight: Vital Signs (12 hours) Temp Pulse Resp BP Pulse Ox 08/25/20 04:00 97.8 F 77 20 104/58 L 96 08/25/20 02:53 97.8 F 20 114/68 96 08/25/20 02:34 94 L 08/24/20 23:40 97.7 F 68 22 H 106/58 L 98 08/24/20 20:00 96 08/24/20 19:44 98.7 F 70 20 99/52 L 96 08/24/20 19:08 90 L Weight Admit Weight 187.833 kg Weight 184.385 kg I&O: 08/23/20 08/24/20 08/25/20 06:59 06:59 06:59 Intake Total 120 60 Output Total 0 1000 Balance 120 0 -940 Result Diagrams: 08/24/20 09:26 08/25/20 05:06 EKG Reviewed by me: Yes (tele: SR 50-70s) Phys Exam - Physical Examination Constitutional: NAD HEENT: sclera anicteric dry mucous membranes Neck: no nodes Respiratory: no wheezing, no rales, no rhonchi, clear to auscultation bilateral Cardiovascular: RRR, no significant murmur Gastrointestinal: soft, non-tender Musculoskeletal: pulses present, edema present Neurological: non-focal Psychiatric: normal affect, A&O x 3 Skin: no rash Dx/Plan - Plan Plan: Acute hypoxic respiratory failure 2/2 to COVID PNA - s/p decadron, albuterol, rocephin and azithro in ED. - D-dimer: 1.20 -> 0.85,Procal 0.88 -> 0.13 - lovenox 30mg daily due to Cr clearance of 24 - S/p remdesevir and convalescent plasma (07/28/20) and decadron - Albuterol PRN, Dulera NYDIA, Mucinex, Tessalon, vitamin D, pulmicort - Repeat CXR on 08/23 showed no acute changes, negative Ddimer, ABG 7.39/32.6/61.7 - O2 requirement: On HFNC and stable. Will continue to wean as tolerated with u ltimate goal remaining stable on nasal cannula. - Placement: medically [facility] for [facility] but denied by insurance. Family is filing an appeal. DEANDRE - Cr: 3.93 (baseline ~ 1.15). Most likely due to hypovolemic state. - Hold home lasix - s/p 1.5L. 500mL bolus LR ordered to be given this morning - Continue to hydrate with IVF and recheck BMP this afternoon Anxiety - Continue Clonazepam 0.5g BID. - Continue Zoloft 50mg daily CHF - BNP: 144 on admission - monitor fluid status - Repeat CXR and BNP on 08/21 were negative. - holding home lasix due to hypovolemic state HTN - continue home medication DM - diet controlled - mild SSI and hypoglycemia protocol ordered Suspected overlying RUL bacterial pneumonia, resolved - Repeat CXR 08/07 in setting of worsening tachypnea. Showed worsening RUL infiltrate. CXR 08/12 showed no change - Azithro (08/07-08/11), Rocephin (08/07-08/13). Negative Procal and clinical imp rovement. - WBC 10.9 Atypical chest pain with indeterminate troponins, resolved - s/p lovenox, aspirin, and nitro in ED - EKG: T wave inversions in aVL, no ST changes - Troponin was trended-stable 0.066 -> 0.061 -> 0.063. Indeterminate trop likely 2/2 to COVID PNA, no longer having CP Hypokalemia, resolved - continue to monitor PCP: Jonnie Code: FULL IVF: SL Diet: HH and CC DVT ppx: 50 mg Lovenox bid Dispo: DEANDRE due to hypovolemic state, receiving IVF and will recheck this afternoon. Respiratory status stable on HFNC.
[2020-08-25] MEDS: Mometasone 100 MCG/Formoterol 5 MCG 120 PUFF INHALER INH SCH ×2 (07:03→18:46)
[2020-08-25] MEDS ORDERED: Lactated Ringer's 500 ML IV SCH (08:30)
[2020-08-25] MEDS ORDERED: Amlodipine 10 MG TAB PO SCH (09:00)
[2020-08-25] MEDS ORDERED: Enoxaparin Sodium 30 MG/0.3 ML SYRINGE SC SCH (09:00)
[2020-08-25] MEDS: clonazePAM 0.5 MG TAB PO SCH ×2 (10:36→21:20)
[2020-08-25] MEDS: Aspirin 81 mg Enteric Coated Tablet PO SCH (10:36)
[2020-08-25] MEDS: guaiFENesin ER 600 MG TAB PO SCH ×2 (10:36→21:20)
[2020-08-25] MEDS: Ascorbic Acid 500 mg Chewable Tablet PO SCH (10:37)
[2020-08-25] MEDS: Cholecalciferol (Vitamin D3) 400 UNITS TAB PO SCH (10:37)
[2020-08-25] MEDS: Metoprolol Tartrate 100 MG TAB PO SCH (10:46)
[2020-08-25] MEDS: Acetaminophen 325 MG TAB PO PRN ×2 (11:50→21:18)
[2020-08-25 15:25] LABS: Anion Gap 18 mmol/L (10-20); BUN (Urea Nitrogen) 70 mg/dL (9.8-20.1); Calc. Creatinine Clearance 35 mL/min (70-130); Calcium 8.2 mg/dL (7.8-10.44); Carbon Dioxide 15 mmol/L (23-31); Chloride 109 mmol/L (98-107); Glucose 98 mg/dL (83-110); Potassium 5.9 mmol/L (3.5-5.1); Sodium 136 mmol/L (136-145)
[2020-08-25] MEDS: Sodium Bicarbonate 150 MEQ in Dextrose 5% in Water 1,000 ML IV SCH (18:44)
[2020-08-25] MEDS ORDERED: Metoprolol Tartrate 50 MG TAB PO SCH (20:32)
[2020-08-25] MEDS: Ezetimibe 10 MG TAB PO SCH (21:17)
[2020-08-25] MEDS: Rosuvastatin 20 MG TAB PO SCH (21:20)
[2020-08-25] MEDS: Heparin 5,000 UNITS/ML VIAL SC SCH (21:20)
[2020-08-26] MEDS: Albuterol 200 PUFF (6.7GM INHALER) INH SCH ×6 (02:30→22:39)
[2020-08-26 04:49] LABS: #Basophils 0.1 thou/uL (0.0-0.2); #Eosinphils 1.3 thou/uL (0.0-0.7); #Monocytes 0.9 thou/uL (0.11-0.59); #Neutrophils 6.4 thou/uL (1.40-6.50); %Basophils 0.7 % (0.0-1.0); %Eosinophils 13.1 % (0.0-10.0); %Lymphocytes 10.4 % (21.0-51.0); %Monocytes 8.8 % (0.0-10.0); Hemoglobin 10.2 g/dL (12.0-16.0); Mean Corpuscular HGB CONC 31.9 g/dL (32.0-36.0); Mean Corpuscular Hemoglobin 28.9 pg (27.0-31.0); Mean Corpuscular Volume 90.5 fL (78.0-98.0); Mean Platelet Volume 10.7 fL (7.4-10.4); Platelet Count 168 thou/uL (130-400); RBC Distribution Width 15.5 % (11.5-14.5); Red Blood Cell (RBC) Count 3.52 mill/uL (4.20-5.40); White Blood Cell (WBC) Count 9.6 thou/uL (4.8-10.8)
[2020-08-26 05:12] LABS: Albumin 2.4 g/dL (3.4-4.8); Anion Gap 16 mmol/L (10-20); BUN (Urea Nitrogen) 71 mg/dL (9.8-20.1); BUN/Creatinine Ratio 15.64; Calc. Creatinine Clearance 33 mL/min (70-130); Calcium 8.1 mg/dL (7.8-10.44); Carbon Dioxide 21 mmol/L (23-31); Chloride 103 mmol/L (98-107); Glucose 94 mg/dL (83-110); Potassium 4.8 mmol/L (3.5-5.1); Sodium 135 mmol/L (136-145)
[2020-08-26] MEDS: Mometasone 100 MCG/Formoterol 5 MCG 120 PUFF INHALER INH SCH ×2 (05:37→17:56)
--- NOTE | 2020-08-26 06:51 | PDOC.FM ---
- Subjective Subjective: Patient seems increasingly tired today though she denies any problems and says she feels much better than she did yesterday. Spoke with patient's son yesterday afternoon and updated him. - Objective Vital Signs & Weight: Vital Signs (12 hours) Temp Pulse Resp BP Pulse Ox 08/26/20 05:00 97.8 F 73 20 113/62 91 L 08/26/20 00:24 89 L 08/25/20 23:18 97.6 F 60 28 H 91/55 L 89 L 08/25/20 19:35 89 L 08/25/20 19:10 97.9 F 79 36 H 106/56 L 90 L Weight Admit Weight 187.833 kg Weight 184.385 kg I&O: 08/24/20 08/25/20 08/26/20 06:59 06:59 06:59 Intake Total 60 650 Output Total 0 1000 200 Balance 0 -940 450 Result Diagrams: 08/26/20 04:26 08/26/20 04:26 EKG Reviewed by me: Yes (tele: SR 50-70s) Phys Exam - Physical Examination Constitutional: NAD HEENT: moist MMs, sclera anicteric Neck: no nodes stable crackles bilaterally Cardiovascular: RRR, no significant murmur Gastrointestinal: soft, non-tender Musculoskeletal: pulses present, edema present Neurological: non-focal Psychiatric: normal affect, A&O x 3 Dx/Plan - Plan Plan: DEANDRE - Cr: 4.54 (baseline ~ 1.15) - Hold home lasix. Did not respond to fluid resuscitation. - Nephrology consult ([facility]): D5W/bicarb at 75mL/hr. Suspicious it may be covid related Acute hypoxic respiratory failure 2/2 to COVID PNA - s/p decadron, albuterol, rocephin and azithro in ED. - D-dimer: 1.20 -> 0.85,Procal 0.88 -> 0.13 - heparin for DVT prophylaxis due to kidney function - S/p remdesevir and convalescent plasma (07/28/20) and decadron - Albuterol PRN, Dulera NYDIA, Mucinex, Tessalon, vitamin D, pulmicort - Repeat CXR on 08/23 showed no acute changes, negative Ddimer, ABG 7.39/32.6/61.7 - O2 requirement: On HFNC and stable. Will continue to wean as tolerated. - Placement: medically approved for [facility] but denied by insurance. Benji varghese is filing an appeal. Anxiety - Continue Clonazepam 0.5g BID. - Continue Zoloft 50mg daily CHF - BNP: 144 on admission - monitor fluid status - Repeat CXR and BNP on 08/21 were negative. CXR on 08/23 negative. - holding home lasix due to kidney function HTN - continue home medication DM - diet controlled - mild SSI and hypoglycemia protocol ordered Suspected overlying RUL bacterial pneumonia, resolved - Repeat CXR 08/07 in setting of worsening tachypnea. Showed worsening RUL infiltrate. CXR 08/12 showed no change - Azithro (08/07-08/11), Rocephin (08/07-08/13). Negative Procal and clinical improvement. - WBC 10.9 Atypical chest pain with indeterminate troponins, resolved - s/p lovenox, aspirin, and nitro in ED - EKG: T wave inversions in aVL, no ST changes - Troponin was trended-stable 0.066 -> 0.061 -> 0.063. Indeterminate trop likely 2/2 to COVID PNA, no longer having CP Hypokalemia, resolved - continue to monitor PCP: Jonnie Code: FULL IVF: SL Diet: HH and CC DVT ppx: 50 mg Lovenox bid Dispo: Nephro recs for DEANDRE. Respiratory status stable on HFNC.
[2020-08-26] MEDS: Aspirin 81 mg Enteric Coated Tablet PO SCH (08:03)
[2020-08-26] MEDS: Cholecalciferol (Vitamin D3) 400 UNITS TAB PO SCH (08:03)
[2020-08-26] MEDS: guaiFENesin ER 600 MG TAB PO SCH ×2 (08:03→22:34)
[2020-08-26] MEDS: clonazePAM 0.5 MG TAB PO SCH ×2 (08:03→22:33)
[2020-08-26] MEDS: Ascorbic Acid 500 mg Chewable Tablet PO SCH (08:04)
[2020-08-26] MEDS: Heparin 5,000 UNITS/ML VIAL SC SCH ×3 (08:04→22:36)
--- NOTE | 2020-08-26 08:35 | CON ---
DATE OF CONSULTATION: CONSULTING PHYSICIAN: Edgar Napoles MD REQUESTING PHYSICIAN: [facility]. REASON FOR CONSULTATION: Worsening [id number] kidney disease. IMPRESSION: 1. Worsening pzjck-rl-crtucnb kidney disease. This is likely hemodynamically mediated in the context of lower blood pressure however, cannot completely rule out COVID nephropathy. 2. Worsening metabolic acidosis, possibly in the context of re-expansion acidosis. 3. Hyperkalemia related to problem #1 and of potassium due to problem #2 in relation to possible .. 4. COVID infection. PLAN: 1. Discontinue lactated Ringer's and substitute with a bicarb based infusion and maintain a gentle rehydration. 2. Discontinue amlodipine and liberalize this patient's blood pressure potentially allowing this patient to have blood pressure of up to 140. 3. Renally dose all medications and avoid potentially nephrotoxic agents. 4. Further management to be dependent on the clinical course. There is no indication at this point for renal replacement therapy (hemodialysis) treatment in the next couple of days. HISTORY OF PRESENT ILLNESS: History is that of a 70-year-old female patient COVID pneumonitis. The patient has stayed quite a long time in the hospital to the point of being taken off quarantine/isolation. The patient remains dependent on high-flow nasal cannula supplementation. The patient does have a baseline chronic kidney disease stage 3 with a creatinine in the 1.4o to 1.56 range; however, over the course of past couple of days the patient's creatinine has steadily been rising lower blood pressure reading in this patient. The patient is also noted with worsening metabolic acidosis and hyperkalemia with potassium 5.9. As a result, Renal consultation PAST MEDICAL HISTORY: Significant for; 1. Hypertension. 2. Heart failure. 3. Diabetes mellitus. 4. Morbid obesity. MEDICATIONS: Reviewed as documented on [employer]. SOCIAL HISTORY: No alcohol. No tobacco. No illicit drug use. FAMILY HISTORY: No family history of kidney disease. REVIEW OF SYSTEMS: As documented in the body of the history. All the other systems were reviewed and found not to be significantly related to present illness. LABORATORY INVESTIGATIONS: Significant as documented in the body of the history. PHYSICAL EXAMINATION: GENERAL: The patient is found to be ill-looking, morbidly obese with high-flow nasal cannula supplementation in place, noted with the following vital signs. VITAL SIGNS: Afebrile. Temperature 97.9, pulse 79, respiratory rate of 23 to 36, O2 saturation of 90% on high-flow nasal cannula with blood pressure of 106/56. HEENT: Remarkable for high-flow nasal cannula in place. CARDIOVASCULAR SYSTEM: First and second heart sounds were heard. DIGESTIVE SYSTEM: Revealed an obese abdomen. EXTREMITIES: Showed no peripheral edema. SKIN: No new gross rash. LYMPHATICS: No peripheral lymphadenopathy. In summary, a 70-year-old female patient with COVID infection oxygen dependent, who is now experiencing deteriorating renal function. Thank you for this consultation. We will follow with you. Job ID: [id number]
[2020-08-26] MEDS: Sodium Bicarbonate 150 MEQ in Dextrose 5% in Water 1,000 ML IV SCH (11:20)
--- NOTE | 2020-08-26 13:32 | PRG ---
DATE OF SERVICE: 08/26/2020 SUBJECTIVE: The patient was seen and examined, sleepy, but arousable. Noted with the following vital signs. OBJECTIVE: VITAL SIGNS: Afebrile. Temperature 97.8, pulse 73, respiratory rate of 20, blood pressure 113/62, O2 saturation of 91%. HEENT: Unremarkable. CARDIOVASCULAR SYSTEM: First and second heart sounds were heard. RESPIRATORY SYSTEM: Clear to auscultation. DIGESTIVE SYSTEM: Revealed an obese abdomen. EXTREMITIES: No significant peripheral edema. LABORATORY INVESTIGATION: Showed a creatinine of 4.54 with a bicarb of 21 and potassium of 4.8. Hemoglobin 10.2. IMPRESSION: 1. Qhkhu-nm-dhuuefg kidney disease, likely hemodynamically mediated plus or minus COVID nephropathy. 2. Metabolic acidosis, improving. 3. Hyperkalemia, resolved. 4. Morbid obesity. 5. COVID infection. PLAN: 1. I have completely discontinued all blood pressure medications. 2. Renally dose all other medications. 3. Avoid potentially nephrotoxic agents. 4. If the patient's hemodynamics remain stable, we will very soon discontinue bicarb supplementation. 5. No emergent indication for hemodialysis. We will continue to monitor this kidney closely. Job ID: [id number]
[2020-08-26] MEDS: Rosuvastatin 20 MG TAB PO SCH (22:33)
[2020-08-26] MEDS: Ezetimibe 10 MG TAB PO SCH (22:33)
[2020-08-26] MEDS: Acetaminophen 325 MG TAB PO PRN (22:34)
[2020-08-27] MEDS: Albuterol 200 PUFF (6.7GM INHALER) INH SCH ×6 (00:44→23:42)
[2020-08-27] MEDS: Mometasone 100 MCG/Formoterol 5 MCG 120 PUFF INHALER INH SCH ×2 (07:15→20:00)
[2020-08-27 07:24] LABS: Albumin 2.4 g/dL (3.4-4.8); Anion Gap 17 mmol/L (10-20); BUN (Urea Nitrogen) 69 mg/dL (9.8-20.1); BUN/Creatinine Ratio 14.71; Calc. Creatinine Clearance 32 mL/min (70-130); Calcium 8.2 mg/dL (7.8-10.44); Carbon Dioxide 22 mmol/L (23-31); Chloride 103 mmol/L (98-107); Glucose 79 mg/dL (83-110); Phosphorus 4.5 mg/dL (2.3-4.7); Potassium 4.5 mmol/L (3.5-5.1); Sodium 137 mmol/L (136-145)
[2020-08-27 07:31] LABS: #Eosinphils 0.8 thou/uL (0.0-0.7); #Lymphocytes 0.6 thou/uL (1.20-3.40); #Monocytes 0.7 thou/uL (0.11-0.59); #Neutrophils 6.4 thou/uL (1.40-6.50); %Eosinophils 9.1 % (0.0-10.0); %Lymphocytes 7.5 % (21.0-51.0); %Neutrophils 75.4 % (42.0-75.0); Hemoglobin 11.1 g/dL (12.0-16.0); Mean Corpuscular HGB CONC 31.4 g/dL (32.0-36.0); Mean Corpuscular Hemoglobin 28.9 pg (27.0-31.0); Mean Corpuscular Volume 92.1 fL (78.0-98.0); Mean Platelet Volume 11.3 fL (7.4-10.4); Platelet Count 131 thou/uL (130-400); RBC Distribution Width 15.9 % (11.5-14.5); Red Blood Cell (RBC) Count 3.82 mill/uL (4.20-5.40); White Blood Cell (WBC) Count 8.5 thou/uL (4.8-10.8)
--- NOTE | 2020-08-27 08:06 | PDOC.FM ---
- Subjective Subjective: Patient feels much better today than she did yesterday. She says she is less tired. - Objective Vital Signs & Weight: Vital Signs (12 hours) Temp Pulse Resp BP Pulse Ox 08/27/20 00:44 96 08/27/20 00:20 98.0 F 73 20 95/54 L Weight Admit Weight 187.833 kg Weight 184.385 kg I&O: 08/26/20 08/27/20 08/28/20 06:59 06:59 06:59 Intake Total 650 1921 Output Total 200 375 Balance 450 1546 Result Diagrams: 08/27/20 04:47 08/27/20 03:30 EKG Reviewed by me: Yes (tele: SR 70s) Phys Exam - Physical Examination Constitutional: NAD HEENT: moist MMs, sclera anicteric Neck: no nodes stable crackles bilaterally Cardiovascular: RRR, no significant murmur Gastrointestinal: soft, non-tender Musculoskeletal: pulses present, edema present Neurological: non-focal Psychiatric: normal affect, A&O x 3 Dx/Plan - Plan Plan: DEANDRE likely 2/2 COVID - Cr: 4.54, 4.69 (baseline ~ 1.15) - Hold home lasix. Did not respond to fluid resuscitation. - Nephrology consult ([facility]): D5W/bicarb at 75mL/hr. Discontinued BP medications. Will continue until patient is hemodynamically stable. Continue to monitor closely. Acute hypoxic respiratory failure 2/2 to COVID PNA - s/p decadron, albuterol, rocephin and azithro in ED. - D-dimer: 1.20 -> 0.85,Procal 0.88 -> 0.13 - heparin for DVT prophylaxis due to kidney function - S/p remdesevir and convalescent plasma (07/28/20) and decadron - Albuterol PRN, Dulera NYDIA, Mucinex, Tessalon, vitamin D, pulmicort - Repeat CXR on 08/23 showed no acute changes, negative Ddimer, ABG 7.39/32.6/ 61.7 - O2 requirement: On HFNC and stable. Will continue to wean as tolerated. - Placement: not a candidate for discharge at this time due to kidney function Anxiety - Continue Clonazepam 0.5g BID. - Continue Zoloft 50mg daily CHF - BNP: 144 on admission - monitor fluid status - Repeat CXR and BNP on 08/21 were negative. CXR on 08/23 negative. - holding home lasix due to kidney function HTN - continue home medication DM - diet controlled - mild SSI and hypoglycemia protocol ordered Suspected overlying RUL bacterial pneumonia, resolved - Repeat CXR 08/07 in setting of worsening tachypnea. Showed worsening RUL infiltrate. CXR 08/12 showed no change - Azithro (08/07-08/11), Rocephin (08/07-08/13). Negative Procal and clinical improvement. - WBC 10.9 Atypical chest pain with indeterminate troponins, resolved - s/p lovenox, aspirin, and nitro in ED - EKG: T wave inversions in aVL, no ST changes - Troponin was trended-stable 0.066 -> 0.061 -> 0.063. Indeterminate trop likely 2/2 to COVID PNA, no longer having CP Hypokalemia, resolved - continue to monitor PCP: Jonnie Code: FULL IVF: SL Diet: HH and CC DVT ppx: 50 mg Lovenox bid Dispo: Nephro recs for DEANDRE. Respiratory status stable on HFNC.
[2020-08-27] MEDS: Cholecalciferol (Vitamin D3) 400 UNITS TAB PO SCH (09:17)
[2020-08-27] MEDS: Heparin 5,000 UNITS/ML VIAL SC SCH ×2 (09:17→20:17)
[2020-08-27] MEDS: Aspirin 81 mg Enteric Coated Tablet PO SCH (09:17)
[2020-08-27] MEDS: clonazePAM 0.5 MG TAB PO SCH ×2 (09:17→20:16)
[2020-08-27] MEDS: guaiFENesin ER 600 MG TAB PO SCH ×2 (09:18→20:16)
[2020-08-27] MEDS: Ascorbic Acid 500 mg Chewable Tablet PO SCH (09:19)
[2020-08-27] MEDS: Sodium Bicarbonate 150 MEQ in Dextrose 5% in Water 1,000 ML IV SCH ×3 (09:20→23:40)
--- NOTE | 2020-08-27 19:12 | PRG ---
DATE OF SERVICE: 08/27/2020 SUBJECTIVE: The patient seems to be feeling a little bit better. Noted with the following vital signs. OBJECTIVE: VITAL SIGNS: Afebrile, temperature 97.5, pulse 84, respiratory rate of 15, O2 saturations of 93% with a blood pressure of 113/55. HEENT: Unremarkable. CARDIOVASCULAR SYSTEM: First and second heart sounds were heard. RESPIRATORY SYSTEM: Clear to auscultation. DIGESTIVE SYSTEM: Revealed an obese abdomen. EXTREMITIES: No peripheral edema. SKIN: No new gross rash. LYMPHATICS: No peripheral lymphadenopathy. LABORATORY INVESTIGATION: Showed a creatinine of 4, bicarb of 22. IMPRESSION: 1. Acute on chronic kidney disease with creatinine seems to be plateauing at around 4. 2. Metabolic acidosis, gradually improving. 3. Hyperkalemia, resolved. PLAN: 1. Decrease heparin to b.i.d. 2. Given the fact that this creatinine has not responded to IV fluid resuscitation, I do suspect that the prerenal acute kidney injury may have progressed to the point of some component of acute tubular necrosis. 3. There is no emergent indication at this point for hemodialysis. We will continue to monitor . Otherwise, we might be looking at a long-term kidney damage. 4. Further to be dependent on the clinical course. Job ID: [id number]
[2020-08-27] MEDS: Ezetimibe 10 MG TAB PO SCH (20:16)
[2020-08-27] MEDS: Rosuvastatin 20 MG TAB PO SCH (20:16)
[2020-08-28] MEDS: Albuterol 200 PUFF (6.7GM INHALER) INH SCH ×5 (02:30→19:42)
[2020-08-28 05:03] LABS: #Eosinphils 0.9 thou/uL (0.0-0.7); #Lymphocytes 0.8 thou/uL (1.20-3.40); #Monocytes 0.8 thou/uL (0.11-0.59); #Neutrophils 7.7 thou/uL (1.40-6.50); %Basophils 0.2 % (0.0-1.0); %Eosinophils 8.6 % (0.0-10.0); %Lymphocytes 7.5 % (21.0-51.0); %Monocytes 8.1 % (0.0-10.0); %Neutrophils 75.7 % (42.0-75.0); Hemoglobin 9.7 g/dL (12.0-16.0); Mean Corpuscular HGB CONC 31.9 g/dL (32.0-36.0); Mean Corpuscular Volume 90.8 fL (78.0-98.0); Mean Platelet Volume 11.3 fL (7.4-10.4); Platelet Count 147 thou/uL (130-400); RBC Distribution Width 15.7 % (11.5-14.5); Red Blood Cell (RBC) Count 3.33 mill/uL (4.20-5.40); White Blood Cell (WBC) Count 10.1 thou/uL (4.8-10.8)
[2020-08-28 05:24] LABS: Albumin 2.4 g/dL (3.4-4.8); Anion Gap 19 mmol/L (10-20); BUN (Urea Nitrogen) 82 mg/dL (9.8-20.1); BUN/Creatinine Ratio 18.02; Calc. Creatinine Clearance 32 mL/min (70-130); Calcium 8.1 mg/dL (7.8-10.44); Carbon Dioxide 27 mmol/L (23-31); Chloride 98 mmol/L (98-107); Glucose 98 mg/dL (83-110); Phosphorus 4.5 mg/dL (2.3-4.7); Potassium 4.2 mmol/L (3.5-5.1); Sodium 140 mmol/L (136-145)
[2020-08-28] MEDS: Mometasone 100 MCG/Formoterol 5 MCG 120 PUFF INHALER INH SCH ×2 (06:05→19:42)
--- NOTE | 2020-08-28 07:07 | PDOC.FM ---
- Subjective Subjective: Patient says she does not feel well this morning. She is tired and feels like she can't breath. - Objective Vital Signs & Weight: Vital Signs (12 hours) Temp Pulse Resp BP Pulse Ox 08/28/20 04:00 97.7 F 90 30 H 103/57 L 93 L 08/28/20 03:37 93 L 08/28/20 00:00 97.6 F 88 30 H 116/66 93 L 08/27/20 19:10 97.4 F L 88 26 H 105/61 97 Weight Admit Weight 187.833 kg Weight 176.765 kg I&O: 08/27/20 08/28/20 08/29/20 06:59 06:59 06:59 Intake Total 1921 1680 Output Total 375 1000 Balance 1546 680 Result Diagrams: 08/28/20 04:34 08/28/20 04:34 EKG Reviewed by me: Yes (tele: SR [id number]) Phys Exam - Physical Examination HEENT: moist MMs, sclera anicteric Neck: no nodes stable crackles Cardiovascular: RRR, no significant murmur Gastrointestinal: soft, non-tender Musculoskeletal: pulses present, edema present Neurological: non-focal Psychiatric: normal affect, A&O x 3 Dx/Plan - Plan Plan: DEANDRE likely 2/2 COVID - Cr: 4.54, 4.69, 4.55 (baseline ~ 1.15). Did not respond to fluid resuscitation. - Nephrology consult ([place]): Discontinued BP medications. Discontinued bicarb. Patient is almost 3L positive fluid status over the past few days. Start ed IV lasix. Suspects ATN and intermediate designer damage. Acute hypoxic respiratory failure 2/2 to COVID PNA - s/p decadron, albuterol, rocephin and azithro in ED. - D-dimer: 1.20 -> 0.85,Procal 0.88 -> 0.13 - heparin for DVT prophylaxis due to kidney function - S/p remdesevir and convalescent plasma (07/28/20) and decadron - Albuterol PRN, Dulera NYDIA, Mucinex, Tessalon, vitamin D, pulmicort - Repeat CXR on 08/23 showed no acute changes, negative Ddimer, ABG 7.39/32.6/61.7 - O2 requirement: On HFNC and stable. Will continue to wean as tolerated. - Placement: not a candidate for discharge at this time due to kidney function. Goals of Care - Palliative back on board - Closely monitoring kidney function for next few days though appears to be permanent damage. Continue goals of care conversations with patient and family. Anxiety - Continue Clonazepam 0.5g BID. - Continue Zoloft 50mg daily CHF - BNP: 144 on admission - monitor fluid status - Repeat CXR and BNP on 08/21 were negative. CXR on 08/23 negative. - holding home lasix due to kidney function HTN - continue home medication DM - diet controlled - mild SSI and hypoglycemia protocol ordered Suspected overlying RUL bacterial pneumonia, resolved - Repeat CXR 08/07 in setting of worsening tachypnea. Showed worsening RUL infiltrate. CXR 08/12 showed no change - Azithro (08/07-08/11), Rocephin (08/07-08/13). Negative Procal and clinical improv ement. - WBC 10.9 Atypical chest pain with indeterminate troponins, resolved - s/p lovenox, aspirin, and nitro in ED - EKG: T wave inversions in aVL, no ST changes - Troponin was trended-stable 0.066 -> 0.061 -> 0.063. Indeterminate trop likely 2/2 to COVID PNA, no longer having CP Hypokalemia, resolved - continue to monitor PCP: Jonnie Code: FULL IVF: SL Diet: HH and CC DVT ppx: 50 mg Lovenox bid Dispo: Nephro recs for DEANDRE. Respiratory status stable on HFNC. Palliative consult for goals of care.
[2020-08-28] MEDS: Cholecalciferol (Vitamin D3) 400 UNITS TAB PO SCH (08:29)
[2020-08-28] MEDS: guaiFENesin ER 600 MG TAB PO SCH ×2 (08:29→19:43)
[2020-08-28] MEDS: Aspirin 81 mg Enteric Coated Tablet PO SCH (08:29)
[2020-08-28] MEDS: clonazePAM 0.5 MG TAB PO SCH ×2 (08:30→19:43)
[2020-08-28] MEDS: Ascorbic Acid 500 mg Chewable Tablet PO SCH (08:30)
[2020-08-28] MEDS: Heparin 5,000 UNITS/ML VIAL SC SCH ×2 (08:30→19:44)
[2020-08-28] MEDS ORDERED: Furosemide 40 MG/4 ML VIAL SLOW IVP SCH (09:45)
[2020-08-28] MEDS: Sodium Bicarbonate 150 MEQ in Dextrose 5% in Water 1,000 ML IV SCH (10:21)
[2020-08-28] MEDS: Furosemide 40 MG/4 ML VIAL SLOW IVP SCH (13:41)
[2020-08-28] MEDS: Ezetimibe 10 MG TAB PO SCH (19:42)
[2020-08-28] MEDS: Rosuvastatin 20 MG TAB PO SCH (19:42)
--- NOTE | 2020-08-28 19:53 | PRG ---
DATE OF SERVICE: 08/28/2020 SUBJECTIVE: The patient is seen and examined today. Seems to be struggling a little bit with breathing today. Noted with the following vital signs. OBJECTIVE: VITAL SIGNS: Afebrile, temperature 97.5, pulse 93, respiratory rate of 34, 92% on high-flow nasal cannulation, and blood pressure 110/57. HEENT: Remarkable for high-flow nasal oxygen cannula in place. CARDIOVASCULAR SYSTEM: First and second heart sounds were heard. RESPIRATORY SYSTEM: Showed some audible wheeze. DIGESTIVE SYSTEM: Revealed an obese abdomen. EXTREMITIES: Showed chronic lymphedema. LABORATORY INVESTIGATION: Showed a hemoglobin of 9.7. Chemistry showed a creatinine of 4.55, with BUN of 82, bicarb of 27, albumin 2.4. IMPRESSION: 1. Acute on chronic kidney disease. This is likely acute tubular necrosis with no response whatsoever to IV fluid challenge. 2. Respiratory distress, possibly tending towards hypervolemia. 3. Morbid obesity. 4. Metabolic acidosis, resolved. PLAN: 1. Discontinue IV fluid. 2. Start IV diuresis. 3. We will re-evaluate this patient within the next 24 hours, and if no significant improvement or response to medical diuresis, the patient to undergo renal replacement therapy (hemodialysis). 4. Further management to be dependent on the clinical course. Job ID: [id number]
[2020-08-29] MEDS: Albuterol 200 PUFF (6.7GM INHALER) INH SCH ×8 (00:06→21:48)
[2020-08-29 04:57] LABS: Albumin 2.2 g/dL (3.4-4.8); Anion Gap 23 mmol/L (10-20); BUN (Urea Nitrogen) 75 mg/dL (9.8-20.1); BUN/Creatinine Ratio 17.52; Calc. Creatinine Clearance 34 mL/min (70-130); Calcium 7.8 mg/dL (7.8-10.44); Carbon Dioxide 23 mmol/L (23-31); Chloride 97 mmol/L (98-107); Glucose 70 mg/dL (83-110); Phosphorus 4.7 mg/dL (2.3-4.7); Potassium 4.4 mmol/L (3.5-5.1); Sodium 139 mmol/L (136-145)
[2020-08-29] MEDS: Furosemide 40 MG/4 ML VIAL SLOW IVP SCH ×2 (05:49→16:20)
[2020-08-29] MEDS: Mometasone 100 MCG/Formoterol 5 MCG 120 PUFF INHALER INH SCH ×2 (05:49→21:29)
--- NOTE | 2020-08-29 06:43 | PDOC.FM ---
- Subjective Subjective: Ms. Ochoa is tired this morning and A&Ox2. She says she feels better than yesterday as her left shoulder was hurting her badly yesterday. - Objective Vital Signs & Weight: Vital Signs (12 hours) Temp Pulse Resp BP Pulse Ox 08/29/20 06:29 106/59 L 08/29/20 05:48 96/54 L 08/29/20 03:21 91 L 08/29/20 02:43 97.0 F L 93 30 H 92/55 L 94 L 08/28/20 23:59 32 H 95 08/28/20 19:49 93 L 08/28/20 19:29 97.2 F L 88 20 118/61 97 Weight Admit Weight 187.833 kg Weight 176.765 kg I&O: 08/27/20 08/28/20 08/29/20 06:59 06:59 06:59 Intake Total 1921 2300 900 Output Total 375 1450 2150 Balance 1546 850 -1250 Result Diagrams: 08/28/20 04:34 08/29/20 04:17 EKG Reviewed by me: Yes (tele: SR 90) Phys Exam - Physical Examination Constitutional: NAD HEENT: moist MMs, sclera anicteric Neck: full ROM stable crackles Cardiovascular: RRR, no significant murmur Gastrointestinal: soft, non-tender Musculoskeletal: pulses present, edema present Deviation from normal: A&Ox2 Skin: no rash Dx/Plan - Plan Plan: DEANDRE likely 2/2 COVID - Cr: 4.54, 4.69, 4.55, 4.28 (baseline ~ 1.15). Did not respond to fluid resuscitation. - Nephrology consult ([facility]): Discontinued BP medications. Discontinued bicarb. On IV lasix. -1250mL fluid balance yesterday. Suspects ATN and nursing home damage. Will monitor kidney function over the next 24 hours and then consider starting dialysis. Acute hypoxic respiratory failure 2/2 to COVID PNA - s/p decadron, albuterol, rocephin and azithro in ED. - D-dimer: 1.20 -> 0.85,Procal 0.88 -> 0.13 - heparin for DVT prophylaxis due to kidney function - S/p remdesevir and convalescent plasma (07/28/20) and decadron - Albuterol PRN, Dulera NYDIA, Mucinex, Tessalon, vitamin D, pulmicort - Repeat CXR on 08/23 showed no acute changes, negative Ddimer, ABG 7.39/32.6/61. 7 - O2 requirement: On HFNC and stable. Will continue to wean as tolerated. - Placement: not a candidate for discharge at this time due to kidney function. Goals of Care - Palliative back on board - Closely monitoring kidney function for next few days though appears to be p ermanent damage. Continue goals of care conversations with patient and family. Anxiety - Continue Clonazepam 0.5g BID. - Continue Zoloft 50mg daily CHF - BNP: 144 on admission - monitor fluid status - Repeat CXR and BNP on 08/21 were negative. CXR on 08/23 negative. - holding home lasix due to kidney function HTN - continue home medication DM - diet controlled - mild SSI and hypoglycemia protocol ordered Suspected overlying RUL bacterial pneumonia, resolved - Repeat CXR 08/07 in setting of worsening tachypnea. Showed worsening RUL infiltrate. CXR 08/12 showed no change - Azithro (08/07-08/11), Rocephin (08/07-08/13). Negative Procal and clinical improvement. - WBC 10.9 Atypical chest pain with indeterminate troponins, resolved - s/p lovenox, aspirin, and nitro in ED - EKG: T wave inversions in aVL, no ST changes - Troponin was trended-stable 0.066 -> 0.061 -> 0.063. Indeterminate trop likely 2/2 to COVID PNA, no longer having CP Hypokalemia, resolved - continue to monitor PCP: Jonnie Code: FULL IVF: SL Diet: HH and CC DVT ppx: 50 mg Lovenox bid Dispo: Nephro recs for DEANDRE. Respiratory status stable on HFNC. Palliative consult for goals of care. Per conversation with son yesterday does not appear patient will be pursuing dialysis if that is recommended. If so, palliative care will be warranted.
[2020-08-29] MEDS: clonazePAM 0.5 MG TAB PO SCH ×2 (08:26→21:27)
[2020-08-29] MEDS: guaiFENesin ER 600 MG TAB PO SCH ×2 (08:26→21:27)
[2020-08-29] MEDS: Aspirin 81 mg Enteric Coated Tablet PO SCH (08:26)
[2020-08-29] MEDS: Ascorbic Acid 500 mg Chewable Tablet PO SCH (08:26)
[2020-08-29] MEDS: Cholecalciferol (Vitamin D3) 400 UNITS TAB PO SCH (08:26)
[2020-08-29] MEDS: Heparin 5,000 UNITS/ML VIAL SC SCH ×2 (08:27→21:27)
[2020-08-29 09:40] VITALS: BMI 52.8
[2020-08-29] MEDS ORDERED: Metolazone 5 MG TAB PO SCH (16:45)
--- NOTE | 2020-08-29 19:04 | PDOC.BPN ---
- Brief Progress Note Encounter Date: 08/29/20 Transition of Care Note Patient is a 70 yo F with PMH of anxiety, CHF, HTN, DM who presented with acute hypoxic respiratory failure 2/2 to COVID PNA and atypical chest pain with indeterminate troponins. Her EKG showed T wave inversions in aVL, no ST changes. Troponin was trended and was stable. Indeterminate trop likely 2/2 to COVID PNA and patient had no further episodes of chest pain. For her COVID patient was started on decadron, albuterol, rocephin and azithro in ED with a procal of 0.88 on admission. Chest Xray and CTA consistent with COVID PNA. Lovenox for DVT ppx was (40 mg daily) up until 08/04. anti-Xa level 08/04 was <0.1 and lovenox was increased to 40 mg BID. AntiXa level not at goal for ppx, so increased to 50 mg BID lovenox on 08/07. She received remdesevir and convalescent plasma (07/28). Patient getting albuterol PRN, Dulera NYDIA, Mucinex, Tessalon, vitamin D. During her stay, patient experienced worsened tachypnea and CXR showed RUL infiltrate with a white count so she was started on Rocephin and Azithro on 08/07, Azithro stopped 08/11, will d/c Rocephin 08/13 as procal was negative and patient was improving clinically. Patient's respiratory status remains stable on HFNC as patient has been unable to wean off. Patient's anxiety was a suspected component of our inability to wean and patient was started on Zoloft and Klonopin. Patient's home lasix was restarted but discontinued after 1-2 days following a rise in patient's creatinine was noticed. DEANDRE due to hypovolemia was suspected and fluid resuscitation was attempted but patient's kidney function did not respond. Dr. Hernández was consulted and suspects patient has permanent kidney damage caused by the COVID19 infection. Patient was given several days of D5W with bicarb with minimal improvement in creatinine. Patient has been diuresing with IV lasix for past several days. Patient's blood pressure medicines have been discontinued and her heparin has been switched to BID dosing. Per conversation with patient on 08/29/[address] Dillan Roland she expressed that if she were to require dialysis to improve her kidney function she would not want to and would rather have comfort measures and oxygen support. Patient's family, including her and daughter, expressed a desire for patient to have dialysis if it was indicated. Palliative care is back on board to assist with goals of care and family discussions.
[2020-08-29] MEDS: Ezetimibe 10 MG TAB PO SCH (21:27)
[2020-08-29] MEDS: Rosuvastatin 20 MG TAB PO SCH (21:27)
[2020-08-30] MEDS: Albuterol 200 PUFF (6.7GM INHALER) INH SCH ×6 (01:46→23:22)
[2020-08-30 05:35] LABS: ALT (SGPT) 11 U/L (8-55); AST (SGOT) 25 U/L (5-34); Albumin Less than 1.0 g/dL (3.4-4.8); Alkaline Phosphatase 23 U/L (40-110); Anion Gap 15 mmol/L (10-20); BUN (Urea Nitrogen) 78 mg/dL (9.8-20.1); Calc. Creatinine Clearance 32 mL/min (70-130); Calcium 6.3 mg/dL (7.8-10.44); Carbon Dioxide 30 mmol/L (23-31); Chloride 103 mmol/L (98-107); Glucose 92 mg/dL (83-110); Potassium 4.4 mmol/L (3.5-5.1); Protein, Total 1.4 g/dL (5.8-8.1); Sodium 144 mmol/L (136-145)
--- NOTE | 2020-08-30 05:38 | PDOC.FM ---
- Subjective Subjective: Overall no interval change per patient and nursing. Patient reports that she is tired but has no acute concerns this AM. Again discussed dialysis with the patient who again reported that she does not want to do dialysis. Reports SOB, denies chest pain - Objective MAR Reviewed: Yes Vital Signs & Weight: Vital Signs (12 hours) Temp Pulse Resp BP Pulse Ox 08/30/20 03:39 97.0 F L 91 25 H 91/52 L 93 L 08/30/20 00:23 95 08/29/20 23:44 97.1 F L 99 26 H 105/58 L 95 08/29/20 22:38 23 H 93 L 08/29/20 21:20 92 L 08/29/20 19:22 97.7 F 93 24 H 119/64 94 L Weight Admit Weight 187.833 kg Weight 176.765 kg I&O: 08/28/20 08/29/20 08/30/20 06:59 06:59 06:59 Intake Total 2300 900 Output Total 1450 2150 900 Balance 850 -1250 -900 Result Diagrams: 08/30/20 06:31 08/30/20 05:02 Phys Exam - Physical Examination Appears fatigued, morbidly obese Respiratory: no wheezing, no rhonchi tachypneic, mild respiratory distress, coarse breath sounds bilaterally Cardiovascular: RRR, no significant murmur, no rub Gastrointestinal: soft, non-tender, no distention, positive bowel sounds 2+ pitting edema BL LE Neurological: non-focal Dx/Plan - Plan Plan: DEANDRE likely 2/2 COVID - Cr: 4.54, 4.69, 4.55, 4.28 (baseline ~ 1.15). Did not respond to fluid resuscitation. - Nephrology consult ([place]): Discontinued BP medications. Discontinued bicarb. On IV lasix. Suspects ATN and termite exterminator damage. Next step is dialysis - Consider ECHO to determine EF Acute hypoxic respiratory failure 2/2 to COVID PNA - s/p decadron, albuterol, rocephin and azithro in ED. - D-dimer: 1.20 -> 0.85,Procal 0.88 -> 0.13 - heparin for DVT prophylaxis due to kidney function - S/p remdesevir and convalescent plasma (07/28/20) and decadron - Albuterol PRN, Dulera NYDIA, Mucinex, Tessalon, vitamin D, pulmicort - Repeat CXR on 08/23 showed no acute changes, negative Ddimer, ABG 7.3 9/32.6/61.7 - O2 requirement: On HFNC and stable. Will continue to wean as tolerated. - Placement: not a candidate for discharge at this time due to kidney function. - Patient is off precautions as she is past the 21 day window per the CDC Goals of Care - Palliative back on board - Closely monitoring kidney function for next few days though appears to be permanent damage. Continue goals of care conversations with patient and family. Anxiety - Continue Clonazepam 0.5g BID. - Continue Zoloft 50mg daily CHF - BNP: 144 on admission - monitor fluid status - Repeat CXR and BNP on 08/21 were negative. CXR on 08/23 negative. HTN - continue home medication DM - diet controlled - mild SSI and hypoglycemia protocol ordered Suspected overlying RUL bacterial pneumonia, resolved - Repeat CXR 08/07 in setting of worsening tachypnea. Showed worsening RUL infiltrate. CXR 08/12 showed no change - Azithro (08/07-08/11), Rocephin (08/07-08/13). Negative Procal and clinical improvement. - WBC 10.9 Atypical chest pain with indeterminate troponins, resolved - s/p lovenox, aspirin, and nitro in ED - EKG: T wave inversions in aVL, no ST changes - Troponin was trended-stable 0.066 -> 0.061 -> 0.063. Indeterminate trop likely 2/2 to COVID PNA, no longer having CP Hypokalemia, resolved - continue to monitor PCP: Jonnie Code: FULL IVF: SL Diet: HH and CC DVT ppx: 5000 u Heparin TID Dispo: Nephro recs for DEANDRE. Respiratory status stable on HFNC. Palliative consult for goals of care. Addendum - Attending - Attending Attestation Date/Time: 08/30/20 2403 I personally evaluated the patient and discussed the management with Dr. Peñaloza. I agree with the History, Examination, Assessment and Plan documented above with any addition or exceptions noted below. Ms. Ochoa looks more tachypneic and fatigued, as well as edematous, than when I saw her last. Poor prognosis regardless of dialysis, I believe.
--- NOTE | 2020-08-30 05:54 | PRG ---
DATE OF SERVICE: 08/29/2020 SUBJECTIVE: The patient is seen and examined today. The daughter's only complaint is that the patient is not speaking, where the patient seems not to be breathing well as well. OBJECTIVE: VITAL SIGNS: Noted with the following vital signs; temperature 97.2, pulse 92, respiratory rate of 30, FiO2 of 60, blood pressure 110/72. HEENT: Remarkable for high-flow nasal cannulation in place. CARDIOVASCULAR SYSTEM: First and second heart sounds were heard. RESPIRATORY SYSTEM: Revealed sounds. DIGESTIVE SYSTEM: Revealed an obese abdomen. EXTREMITIES: Showed lymphedema. LABORATORY INVESTIGATION: Showed a creatinine of 4.28 with BUN of 75. The patient seems to be diuresing appreciably in response to diuretics. IMPRESSION: 1. Acute on chronic kidney disease. 2. Hypervolemia, responding to medical diuresis. 3. Poor appetite, query incipient uremia. 4. Morbid obesity. PLAN: 1. We will continue with current renal supportive measures. 2. Augment the loop diuretic with Zaroxolyn and follow the renal function. 3. I did discuss with the daughter regarding the very poor renal status of this patient and if the patient's renal function continues to deteriorate, the patient may become a candidate for renal replacement therapy. 4. Further management to be dependent on the clinical course. Job ID: [id number]
[2020-08-30] MEDS: Mometasone 100 MCG/Formoterol 5 MCG 120 PUFF INHALER INH SCH ×2 (06:03→19:40)
[2020-08-30] MEDS: Furosemide 40 MG/4 ML VIAL SLOW IVP SCH ×2 (06:03→13:06)
[2020-08-30 06:41] LABS: #Eosinphils 0.3 thou/uL (0.0-0.7); #Lymphocytes 0.7 thou/uL (1.20-3.40); #Monocytes 0.8 thou/uL (0.11-0.59); #Neutrophils 8.6 thou/uL (1.40-6.50); %Basophils 0.4 % (0.0-1.0); %Eosinophils 2.7 % (0.0-10.0); %Lymphocytes 6.6 % (21.0-51.0); %Monocytes 7.9 % (0.0-10.0); %Neutrophils 82.4 % (42.0-75.0); Hemoglobin 10.2 g/dL (12.0-16.0); Mean Corpuscular HGB CONC 32.1 g/dL (32.0-36.0); Mean Corpuscular Hemoglobin 29.9 pg (27.0-31.0); Mean Corpuscular Volume 93.2 fL (78.0-98.0); Mean Platelet Volume 10.6 fL (7.4-10.4); Platelet Count 161 thou/uL (130-400); RBC Distribution Width 16.2 % (11.5-14.5); White Blood Cell (WBC) Count 10.5 thou/uL (4.8-10.8)
[2020-08-30] MEDS: Metolazone 5 MG TAB PO SCH (07:42)
[2020-08-30] MEDS: Ascorbic Acid 500 mg Chewable Tablet PO SCH (07:42)
[2020-08-30] MEDS: Aspirin 81 mg Enteric Coated Tablet PO SCH (07:43)
[2020-08-30] MEDS: clonazePAM 0.5 MG TAB PO SCH ×2 (07:43→20:32)
[2020-08-30] MEDS: Cholecalciferol (Vitamin D3) 400 UNITS TAB PO SCH (07:43)
[2020-08-30] MEDS: guaiFENesin ER 600 MG TAB PO SCH ×2 (07:43→20:32)
[2020-08-30] MEDS: Heparin 5,000 UNITS/ML VIAL SC SCH ×2 (07:44→20:33)
[2020-08-30] MEDS: Acetaminophen 325 MG TAB PO PRN (13:00)
[2020-08-30] MEDS ORDERED: Albumin 25% 25 GM/100 ML BOT IVPB SCH (13:45)
[2020-08-30 14:11] LABS: Actual Bicarbonate (HCO3a) 30.3 mEq/L (22-28); Base Excess (BEa) 2.3 mEq/L (-2.0 to +3.0); Calcium, Ionized (arterial) 1.11 mmol/L (1.12-1.30); Carboxyhemoglobin (COHb) 1.2 gm% (0.0-3.0); Hemoglobin (Hb) 10.9 g/dL (12.0-16.0); Potassium - ABG Lab 3.92 mmol/L (3.70-5.30); pH, Arterial 7.28 (7.35-7.45)
[2020-08-30 14:20] LABS: CO2 Tension 66.1 mmHg (35.0-45.0); O2 Tension (PaO2), arterial 47.2 mmHg (> 70.0)
[2020-08-30 14:22] LABS: Puncture Site RRA
[2020-08-30 14:23] LABS: ALV-art Gradient 404.925 mmHg (0-20)
--- NOTE | 2020-08-30 15:37 | PDOC.EVN ---
Event Note - Event Note Event Note: RN paged resides for ABG result. respiratory acidosis present with hypoxemia despite being on HFNC. eval of pt: somnolent but arousable on bipap. diffuse crackles bilaterally. pulses present throughout, edema at baseline. concern for worsening respiratory failure and fluid overload in light of acute renal failure. spoke with and confirmed that he and his would want her to have chest compressions/cardiac rescus. but no intubation or ventilator support. informed of poor prognosis related to cpr. has no further questions at this time.
[2020-08-30] MEDS: Albumin 25% 25 GM/100 ML BOT IVPB SCH (18:14)
--- NOTE | 2020-08-30 20:04 | PRG ---
DATE OF SERVICE: 08/30/2020 SUBJECTIVE: The patient was seen and examined, seems to be very somnolent, and very concerning for carbon dioxide narcosis. OBJECTIVE: VITAL SIGNS: Noted with the following vital signs; afebrile, temperature 96.3, pulse 88, respiratory rate of 23, O2 saturation of 100% with a blood pressure of 108/57. HEENT: Remarkable for high-flow nasal cannula in place. CARDIOVASCULAR SYSTEM: First and second heart sounds were heard. RESPIRATORY SYSTEM: Revealed a lot of transmitted sounds. DIGESTIVE SYSTEM: Revealed an obese abdomen. EXTREMITIES: Showed chronic lymphedema. LABORATORY INVESTIGATION: Showed a bicarb of 30, BUN of 78 with a creatinine of 4.49. IMPRESSION: 1. Acute on chronic kidney disease. 2. Morbid obesity with body mass index of 52.9. 3. Respiratory failure, likely carbon dioxide narcosis. 4. COVID pneumonitis. PLAN: 1. Start ABG to evaluate for the degree of pCO2 in this patient. 2. Medical diuresis undergoing. 3. No indication for renal replacement therapy (hemodialysis) at this point. 4. If carbon dioxide necrosis is confirmed, we will recommend BiPAP to address this. 5. Further management to be dependent on the clinical course. Job ID: [id number]
[2020-08-30] MEDS: Ezetimibe 10 MG TAB PO SCH (20:31)
[2020-08-30] MEDS: Rosuvastatin 20 MG TAB PO SCH (20:31)
[2020-08-31] MEDS: Albumin 25% 25 GM/100 ML BOT IVPB SCH ×3 (00:55→11:09)
[2020-08-31] MEDS: Albuterol 200 PUFF (6.7GM INHALER) INH SCH ×4 (03:15→16:27)
[2020-08-31] MEDS: Furosemide 40 MG/4 ML VIAL SLOW IVP SCH ×2 (05:20→13:36)
[2020-08-31 05:28] LABS: #Eosinphils 0.3 thou/uL (0.0-0.7); #Lymphocytes 0.6 thou/uL (1.20-3.40); #Monocytes 0.5 thou/uL (0.11-0.59); #Neutrophils 8.4 thou/uL (1.40-6.50); %Basophils 0.2 % (0.0-1.0); %Eosinophils 2.6 % (0.0-10.0); %Lymphocytes 6.1 % (21.0-51.0); %Monocytes 5.5 % (0.0-10.0); %Neutrophils 85.5 % (42.0-75.0); Mean Corpuscular Hemoglobin 28.9 pg (27.0-31.0); Mean Corpuscular Volume 93.3 fL (78.0-98.0); Mean Platelet Volume 10.7 fL (7.4-10.4); Platelet Count 138 thou/uL (130-400); RBC Distribution Width 16.4 % (11.5-14.5); Red Blood Cell (RBC) Count 3.13 mill/uL (4.20-5.40); White Blood Cell (WBC) Count 9.8 thou/uL (4.8-10.8)
--- NOTE | 2020-08-31 05:45 | PDOC.FM ---
- Subjective Subjective: Patient with worsening of mental status on exam, patient upgraded to IMCU and placed on BiPAP. ABG showing respiratory acidosis. Patient with no acute concerns this AM, on BiPAP. Discussion with karime, patient agreed to short term dialysis yesterday. - Objective MAR Reviewed: Yes Vital Signs & Weight: Vital Signs (12 hours) Temp Pulse Resp BP Pulse Ox 08/31/20 04:23 94.4 F L 74 22 H 94/53 L 91 L 08/31/20 03:13 88 26 H 95 08/31/20 03:11 94 L 08/31/20 02:15 77 32 H 96/55 L 91 L 08/30/20 23:55 96.7 F L 78 25 H 107/55 L 96 08/30/20 22:19 84 23 H 104/59 L 100 08/30/20 20:23 96.0 F L 83 25 H 106/61 99 08/30/20 20:19 99 08/30/20 20:00 96.1 F L 81 14 106/61 100 08/30/20 19:40 96 08/30/20 18:15 96.5 F L 84 24 H 97/50 L 99 Weight Admit Weight 187.833 kg Weight 176.765 kg I&O: 08/29/20 08/30/20 08/31/20 06:59 06:59 06:59 Intake Total 900 45 50 Output Total 2150 1800 515 Balance -1250 -1755 -465 Result Diagrams: 08/31/20 05:00 08/31/20 05:00 Phys Exam - Physical Examination Fatigued, on BiPAP Respiratory: no wheezing, no rhonchi Diffuse crackles BL Cardiovascular: RRR, no significant murmur, no rub Gastrointestinal: soft, non-tender, positive bowel sounds Anasarca present, 2+ Dx/Plan - Plan Plan: DENADRE likely 2/2 COVID - Cr: 4.54, 4.69, 4.55, 4.28 (baseline ~ 1.15). Did not respond to fluid resuscitation. - Nephrology consult ([facility]): Discontinued BP medications. Discontinued bicarb. On IV lasix. Suspects ATN and long-term damage. Next step is dialysis - Consider ECHO to determine EF Hypothermia -Likely 2/2 nearing end of life -Continue [place], discuss with family Acute hypoxic respiratory failure 2/2 to COVID PNA - s/p decadron, albuterol, rocephin and azithro in ED. - D-dimer: 1.20 -> 0.85,Procal 0.88 -> 0.13 - heparin for DVT prophylaxis due to kidney function - S/p remdesevir and convalescent plasma (07/28/20) and decadron - Albuterol PRN, Dulera NYDIA, Mucinex, Tessalon, vitamin D, pulmicort - Repeat CXR on 08/23 showed no acute changes, negative Ddimer, ABG 7.39/3 2.6/61.7 - O2 requirement: On HFNC and stable. Will continue to wean as tolerated. - Placement: not a candidate for discharge at this time due to kidney function. - Patient is off precautions as she is past the 21 day window per the CDC Goals of Care - Palliative back on board - Closely monitoring kidney function for next few days though appears to be permanent damage. Continue goals of care conversations with patient and family. Anxiety - Continue Clonazepam 0.5g BID. - Continue Zoloft 50mg daily CHF - BNP: 144 on admission - monitor fluid status - Repeat CXR and BNP on 08/21 were negative. CXR on 08/23 negative. HTN - continue home medication DM - diet controlled - mild SSI and hypoglycemia protocol ordered Suspected overlying RUL bacterial pneumonia, resolved - Repeat CXR 08/07 in setting of worsening tachypnea. Showed worsening RUL infiltrate. CXR 08/12 showed no change - Azithro (08/07-08/11), Rocephin (08/07-08/13). Negative Procal and clinical improvement. - WBC 10.9 Atypical chest pain with indeterminate troponins, resolved - s/p lovenox, aspirin, and nitro in ED - EKG: T wave inversions in aVL, no ST changes - Troponin was trended-stable 0.066 -> 0.061 -> 0.063. Indeterminate trop likely 2/2 to COVID PNA, no longer having CP Hypokalemia, resolved - continue to monitor PCP: Jonnie Code: FULL IVF: SL Diet: HH and CC DVT ppx: 5000 u Heparin TID Dispo: Nephro recs for DEANDRE. Respiratory status worsening, on BiPAP. Palliative consult for goals of care. Will call family this AM to let them know of worsening status Addendum - Attending - Attending Attestation Date/Time: 08/31/20 1043 I personally evaluated the patient and discussed the management with the team. I agree with the History, Examination, Assessment and Plan documented above with any addition or exceptions noted below. D/c clonazepam. I think we need to consider dialysis in light of new worsening of chronic respiratory failure.
[2020-08-31 05:52] LABS: ALT (SGPT) 13 U/L (8-55); AST (SGOT) 22 U/L (5-34); Albumin 3.1 g/dL (3.4-4.8); Alkaline Phosphatase 117 U/L (40-110); Anion Gap 25 mmol/L (10-20); BUN (Urea Nitrogen) 81 mg/dL (9.8-20.1); Bilirubin, Total 0.6 mg/dL (0.2-1.2); Calc. Creatinine Clearance 31 mL/min (70-130); Calcium 8.2 mg/dL (7.8-10.44); Carbon Dioxide 24 mmol/L (23-31); Chloride 98 mmol/L (98-107); Globulin 3.7 g/dL (2.4-3.5); Glucose 97 mg/dL (83-110); Protein, Total 6.8 g/dL (5.8-8.1); Sodium 143 mmol/L (136-145)
[2020-08-31 06:51] LABS: Lactic Acid 0.7 mmol/L (0.5-2.2)
[2020-08-31] MEDS: Mometasone 100 MCG/Formoterol 5 MCG 120 PUFF INHALER INH SCH (07:03)
[2020-08-31] MEDS ORDERED: EPINEPHrine 1 MG/10 ML Abboject SYRINGE ONE (09:41)
[2020-08-31] MEDS ORDERED: Sodium Bicarb 50 MEQ/50 ML Abboject 8.4% SYRINGE ONE (09:41)
[2020-08-31] MEDS: Metolazone 5 MG TAB PO SCH (09:45)
[2020-08-31] MEDS: Heparin 5,000 UNITS/ML VIAL SC SCH (09:49)
[2020-08-31] MEDS: Cholecalciferol (Vitamin D3) 400 UNITS TAB PO SCH (09:56)
[2020-08-31] MEDS: guaiFENesin ER 600 MG TAB PO SCH (09:56)
[2020-08-31] MEDS: Ascorbic Acid 500 mg Chewable Tablet PO SCH (09:56)
[2020-08-31] MEDS: clonazePAM 0.5 MG TAB PO SCH (10:48)
[2020-08-31] MEDS: Aspirin 81 mg Enteric Coated Tablet PO SCH (10:48)
[2020-08-31 13:52] VITALS: TEMP 96.8
--- NOTE | 2020-08-31 13:55 | RAD ---
PORTABLE CHEST 1 VIEW: Date: 08/31/2020 Time: 1150 hours HISTORY: Hypoxia. COMPARISON: 08/23/2020. FINDINGS/IMPRESSION: Interval worsening of diffuse bilateral infiltrates seen since 08/23/2020. Changes of median sternoto my are again noted. The heart size is stable. No pneumothoraces or large effusions are identified. POS: OFF
[2020-08-31] MEDS ORDERED: Norepinephrine 8 MG/0.9% NS 250 ML ONE (15:39)
[2020-08-31 16:14] VITALS: BP 56/38
--- NOTE | 2020-08-31 16:41 | PDOC.BPN ---
- Brief Progress Note Code Blue Note I was notified that the patient was hypotensive around 1500. When I arrived her blood pressure was ~ 60/30 and her HR was approximately 30. She was on Bipap satting 70% and was unresponsive to painful stimuli. We spoke with the son and father that she would shortly and they decided they wanted everything done. Push dose epi was given prior to intubation and she was bagged with an OP in place but sats continued falling. Rocuronium was given and the decision was made to intubate due to impending arrest and inability to ventilate due to her marked lack of pulmonary compliance. A 7.0 ETT was placed on the first attempt with good color change, chest rise, and bilateral breath sounds. During this approximately 2 doses of epi were given, but a pulse was not lost. I subsequently placed a left femoral CVC, emergently, using seldinger technique and landmarks. Levophed was started. She was placed on a ventilator but sats dropped to 60% and she was bagged, but unable to get above the 70's-80's consistently. She was moved to the unit and subsequently coded. More epi was given and chest compressions were started. After multiple rounds with PEA and no ROSC the code was terminated with family at bedside and in agreement at 1622. See note and operative note for further details.
--- NOTE | 2020-08-31 17:17 | DIS ---
DATE OF ADMISSION: 07/26/2020 DATE OF DISCHARGE: 08/31/2020 DATE OF : 08/31/2020. TIME OF : 1622 hours. CAUSE OF : 1. COVID pneumonia. 2. Acute kidney injury. SECONDARY DIAGNOSES: 1. Diabetes mellitus. 2. Hypertension. 3. Morbid obesity. HOSPITAL COURSE: This was a 70-year-old female who came into the hospital with COVID pneumonia. She essentially had a very long course on the COVID unit and was unable to be weaned from high flow nasal cannula at very high settings. In the last week prior to her , she developed worsening acute renal failure. On the day before her , she became progressively more short of breath and was placed on BiPAP and then today, she became progressively more somnolent. When it was apparent that she was not improving and was decompensating rapidly, the family elected to change her to a full code. Please see that pertinent note for more details. Job ID: [id number] MTDD
--- NOTE | 2020-08-31 17:22 | PRG ---
DATE OF SERVICE: 08/31/2020 SUBJECTIVE: Patient examined, seems not to be doing very well. noted with the patient got intubated and transferred over to ICU, more or less noted to be hypotensive and is struggling with high breathing, noted with the following vital signs. OBJECTIVE: VITAL SIGNS: Temperature 96.1, pulse 81, respiratory rate of 14, blood pressure 106/61, O2 saturations of 93% on vent. HEENT: Remarkable for endotracheal tube in place. CARDIOVASCULAR: First and second heart sounds were heard. RESPIRATORY: A lot of rales. DIGESTIVE: Revealed an obese abdomen. EXTREMITIES: Showed no significant edema. LABORATORY INVESTIGATIONS: Hemoglobin of 9.9. Chemistry showed a creatinine plateaued around 4.69 and BUN of 81. IMPRESSION: 1. Pulmonary failure in the context of #2. 2. COVID pneumonitis. 3. Acute on chronic kidney disease versus COVID nephropathy, seems to be stable. 4. Hypervolemia. The patient seems to be euvolemic at this point. 5. Morbid obesity. PLAN: There is no emergent indication for hemodialysis on this patient at this point. 1. We will deescalate the patient's diuretics. 2. Renal supportive measures/hemodynamics support. 3. There is no emergent indication for hemodialysis at this point. 4. The prognosis of this patient will mainly depend on the outcome of the pulmonary pathology. 5. Further management to be dependent on the clinical course. Job ID: [id number]
--- NOTE | 2020-09-01 06:52 | OP ---
DATE OF PROCEDURE: 08/31/2020 PROCEDURE PERFORMED: Femoral central line. INDICATION: Shock. BOOT AND SHOE REPAIRMAN: Marcell Peñaloza MD Consent was obtained emergently from the family, the son and . Prior to the procedure, indications, risks, and benefits were discussed at length. DESCRIPTION OF PROCEDURE: Because of the emergent nature, a splash prep with Betadine was performed, where under emergent sterile technique, the left groin was scrubbed with Betadine, prepped and draped in a sterile fashion. The left femoral pulse was identified and I accessed the left femoral vein under the first attempt with dark blood that was nonpulsatile. Syringe was removed and the guidewire was advanced into the introducer needle. Subsequently, the introducer needle was removed and a small incision was made on the skin surface with a scalpel, and a dilator was placed over the wire and the tract was dilated. After dilation, a triple lumen central venous catheter was placed without resistance, the wire was removed and was sutured in place at 20 cm. This was sewn into place and a sterile dressing was placed on top of it. The ports were flushed and aspirated without difficulty. Estimated blood loss was 5 mL. Job ID: [id number] [facility]
--- NOTE | 2020-09-01 06:52 | OP ---
DATE OF PROCEDURE: 08/31/2020 PROCEDURE PERFORMED: Intubation. INDICATION: Acute hypoxic respiratory failure. CONSENT: Consent was obtained from the son and . Risks and benefits of intubation versus expected management were discussed in detail. DESCRIPTION OF PROCEDURE: Under emergent conditions, the patient was already on case monitor. She received push dose epinephrine to raise her blood pressure and 100 of rocuronium was given. Using a size 4 video laryngoscope, a 7.0 ET tube was placed on the first attempt. Stylet was removed. Cuff was inflated. Appropriate tube position was confirmed by direct visualization of vocal cord passage, fogging the tube, CO2 colorimetric indicator, and symmetric breath sounds. Tube was secured to 22 cm and she remained in critical condition. Job ID: [id number] MTDD
--- NOTE | 2020-09-03 03:50 | PQF ---
CLINICAL DOCUMENTATION CLARIFICATION FORM: Dear : Dante Corey Date / Time: 09/03/2020 0343 Please exercise your independent, professional judgment in responding to the clarification form. Clinical indicators are provided on the bottom of this form for your review Please check appropriate box(es): [ ] Sepsis due to Covid Pneumonia [ x ] Severe sepsis due to Covid Pneumonia with associated Acute Respiratory Failure [ ] Localized infection without sepsis [ ] Other diagnosis, please specify [ ] Unable to determine In addition, please specify: Present on Admission (POA): [ x ] Yes [ ] No [ ] Unable to determine Physician Signature: Date/Time: For continuity of documentation, please document condition throughout progress notes and discharge summary. Thank You. To be completed by CDI/Coding staff for physician review: Present Clinical Indicators - Signs / Symptoms / Labs Results and Location in Medical Record [x] Lactic acid 1.9, WBC 12.0, Plt count 248, Neutrophils 87.2, Band 5 Laboratory 07/26 [x] SARS-Cov 2 Rap RNA: Detected Serology 07/26 [x] Blood culture: No growth Microbiology 07/26 [x] BP 158/113, Pulse 92, Resp 28, Temp 98.6 Vital signs 07/26 [x] SIRS scoring: Yes, did meet criteria. ED notes p2 07/26 [x] Pneumonia due to Covid 19 virus H&P p3 07/26 Dr Huerta [x] DEANDRE H&P p3 07/26 Dr Huerta [x] Acute respiratory failure H&P p4 07/26 Dr Huerta [x] Acidosis PN 08/30 [x] Chest CT scan: groundglass opacities seen CT scan 07/26 Present Risk Factors Results and Location in Medical Record [x] 70 year-old Female H&P p1 / Dr Huerta [x] DM H&P p1 07/26 Dr Huerta [x] Morbid obesity H&P p1 07/26 Dr Huerta [x] Pneumonia due to Covid 19 virus H&P p3 07/26 Dr Huerta Present Treatments Results and Location in Medical Record [x] IVF NS 1L SEP 22 [x] IV Remdesivir 200 mg SEP 22 [x] IV Lactated Ringer 1 L SEP 22 [x] IV Rocephin 2 gm SEP 22 [x] IV Zithromax 250 mg oral SEP 22 [x] Convalescent Plasma Blood Band 07/26 [x] Oxygen 2L Respiratory failure 07/26 CDS/Microstrategy Architect Signature: Tammy Chang Phone #: [phone] Date/Time: 09/03/20 6930 This is a permanent part of the [facility] Record [facility]
== END 2020-08-31 18:07 | disposition expired | DRG 871 ==
LOC: ERS 17:13 → ERHOLD 20:00 → 2SW 07-27 23:28 → CCU 08-31 16:02
PROVIDERS: ADMIT Student in an Organized Health Care Education/Training Program; ATTEND Family Medicine
PROC: XW13325 Transfusion of Convalescent Plasma (Nonautologous) into Peripheral Vein, Percutaneous Approach, New Technology Group 5 (ICD-10-PCS; principal; 2020-07-26)
PROC: 8E0ZXY6 Isolation (ICD-10-PCS; 2020-07-26)
PROC: XW033E5 Introduction of Remdesivir Anti-infective into Peripheral Vein, Percutaneous Approach, New Technology Group 5 (ICD-10-PCS; 2020-07-27)
PROC: 5A09457 Assistance with Respiratory Ventilation, 24-96 Consecutive Hours, Continuous Positive Airway Pressure (ICD-10-PCS; 2020-08-30)
PROC: 5A1935Z Respiratory Ventilation, Less than 24 Consecutive Hours (ICD-10-PCS; 2020-08-31)
PROC: 0BH18EZ Insertion of Endotracheal Airway into Trachea, Via Natural or Artificial Opening Endoscopic (ICD-10-PCS; 2020-08-31)
PROC: 3E033XZ Introduction of Vasopressor into Peripheral Vein, Percutaneous Approach (ICD-10-PCS; 2020-08-31)
PROC: 06HY33Z Insertion of Infusion Device into Lower Vein, Percutaneous Approach (ICD-10-PCS; 2020-08-31)
PROC: 5A12012 Performance of Cardiac Output, Single, Manual (ICD-10-PCS; 2020-08-31)
DX: A41.89 Other specified sepsis (principal); U07.1 COVID-19; J12.82 Pneumonia due to coronavirus disease 2019; J96.01 Acute respiratory failure with hypoxia; J15.9 Unspecified bacterial pneumonia; N17.9 Acute kidney failure, unspecified; I13.0 Hypertensive heart and chronic kidney disease with heart failure and stage 1 through stage 4 chronic kidney disease, or unspecified chronic kidney disease; E87.2 Acidosis; Z68.43 Body mass index [BMI] 50.0-59.9, adult; R65.20 Severe sepsis without septic shock; E66.01 Morbid (severe) obesity due to excess calories; I50.9 Heart failure, unspecified; E78.5 Hyperlipidemia, unspecified; M17.12 Unilateral primary osteoarthritis, left knee; E87.6 Hypokalemia; F41.9 Anxiety disorder, unspecified; N18.9 Chronic kidney disease, unspecified; E11.22 Type 2 diabetes mellitus with diabetic chronic kidney disease; E87.5 Hyperkalemia; I95.9 Hypotension, unspecified; Z78.1 Physical restraint status; Z90.710 Acquired absence of both cervix and uterus; Z79.899 Other long term (current) drug therapy; Z79.82 Long term (current) use of aspirin
CPT/HCPCS: 0240U; 36415; 36416; 36430; 36600; 71045; 71275; 76770; 80048; 80053; 80069; 81001; 81003; 81015; 82553; 82570; 82728; 82805; 83605; 83615; 83690; 83735; 83880; 84145; 84484; 84540; 85007; 85025; 85027; 85379; 85520; 86140; 86850; 86900; 86901; 87040; 87077; 87086; 87186; 93005; 94660; 94664; 96365; 96372; 96375; J0171; J0456; J0696; J1100; J1644; J1650; J1815; J1940; J2060; J2405; J3490; J7050; J7070; J7120; J7611; J8540; P9017; P9047; Q0162; Q9967